=== PATIENT | male | born 1965 | race Caucasian/White ===

== ENCOUNTER 2021-10-27 03:18 | Inpatient (IN) | payer MEDICARE, MEDICAID, SELFPAY ==
[2021-10-27] VITALS (9 sets, daily range): BP systolic 117–172; BP diastolic 63–97; PULSE 93–113; RESP 12–20; TEMP 36.2–37; O2SAT 94–100; BMI 35.9
--- NOTE | ~2021-10-27 | XR_ITS ---
EXAMINATION: XR BILATERAL HANDS: 3 VIEWS EACH XR RIGHT FOREARM: 2 VIEWS CLINICAL INFORMATION: Pain COMPARISON: 06/26/2020 XR/XR hand RT min 3V FINDINGS/IMPRESSION: Right hand: No acute fracture or dislocation. Status post resection of the fifth ray at the level of the proximal fifth metacarpal metaphysis. Moderate marginal osteophytes and subchondral sclerosis and joint space narrowing of the first CMC joint. Small marginal osteophytes throughout the metacarpophalangeal joints and interphalangeal joints. Mild degenerative changes of the radiocarpal joint. Left hand: No acute fracture or dislocation. Moderate degenerative changes of the first CMC joint and triscaphe the joints. Small marginal osteophytes throughout the metacarpophalangeal joints and interphalangeal joints. Soft tissues unremarkable. Right forearm: Radius and ulna are intact. Soft tissues unremarkable.
--- NOTE | ~2021-10-27 | XR_ITS ---
EXAMINATION: XR BILATERAL HANDS: 3 VIEWS EACH XR RIGHT FOREARM: 2 VIEWS CLINICAL INFORMATION: Pain COMPARISON: 06/26/2020 XR/XR hand LT min 3V FINDINGS/IMPRESSION: Right hand: No acute fracture or dislocation. Status post resection of the fifth ray at the level of the proximal fifth metacarpal metaphysis. Moderate marginal osteophytes and subchondral sclerosis and joint space narrowing of the first CMC joint. Small marginal osteophytes throughout the metacarpophalangeal joints and interphalangeal joints. Mild degenerative changes of the radiocarpal joint. Left hand: No acute fracture or dislocation. Moderate degenerative changes of the first CMC joint and triscaphe the joints. Small marginal osteophytes throughout the metacarpophalangeal joints and interphalangeal joints. Soft tissues unremarkable. Right forearm: Radius and ulna are intact. Soft tissues unremarkable.
--- NOTE | ~2021-10-27 | XR_ITS ---
EXAMINATION: XR CHEST CLINICAL INFORMATION: Covid COMPARISON: 08/09/2019 TECHNIQUE: Frontal view of the chest was obtained. FINDINGS: No significant abnormality is noted involving the heart, lungs, mediastinum or bony thorax. Again seen is evidence of right rotator cuff surgery. XR/XR chest 1V IMPRESSION: No acute intrathoracic disease. No evidence of Covid pneumonia.
--- NOTE | ~2021-10-27 | XR_ITS ---
EXAMINATION: XR BILATERAL HANDS: 3 VIEWS EACH XR RIGHT FOREARM: 2 VIEWS CLINICAL INFORMATION: Pain COMPARISON: 06/26/2020 XR/XR forearm RT 2V FINDINGS/IMPRESSION: Right hand: No acute fracture or dislocation. Status post resection of the fifth ray at the level of the proximal fifth metacarpal metaphysis. Moderate marginal osteophytes and subchondral sclerosis and joint space narrowing of the first CMC joint. Small marginal osteophytes throughout the metacarpophalangeal joints and interphalangeal joints. Mild degenerative changes of the radiocarpal joint. Left hand: No acute fracture or dislocation. Moderate degenerative changes of the first CMC joint and triscaphe the joints. Small marginal osteophytes throughout the metacarpophalangeal joints and interphalangeal joints. Soft tissues unremarkable. Right forearm: Radius and ulna are intact. Soft tissues unremarkable.
--- NOTE | 2021-10-27 04:57 | ED.OVERDOSE ---
HPI - Overdose General Chief Complaint: Overdose Stated Complaint: crisis/restrained Time Seen by Provider: 10/27/21 04:57 Source: patient and family () Mode of arrival: EMS History of Present Illness HPI Narrative: This is a 56-year-old male with longstanding history of alcohol dependence, depression, hypertension who presents via EMS after called 911 for patient picking up 90s and stating that he wanted to kill himself. Patient states that he has taken 3-4 times the amount of his prescribed medications and reports 10-12 beers and repeatedly states he has ?done something very bad? and that he intentionally overdosed because he is ?fed up with life?. As per EMS patient was tased by the police department. Collateral information provided by the describes that she and her have been ongoing conflict which has escalated since she became COVID positive, and has been ill so that everyone is ?cooped up?. She states that they were arguing earlier in the day and he was saying that ?he went to take his life? and then left the house. She states that he had been drinking all day and says that he went to a local bar and came home. She says that she avoid staying anything and that he went to bed went to sleep. She then describes waking up and finding him sitting at the kitchen with his pill bottle surrounding him in a pt of whiskey. She then states that he endorsed wanting to harm himself stood up and grabbed night and she ran out of the house. She does note that he punched some windows in states that there were pills and glass everywhere. Related Data Home Medications Medication Instructions Recorded Confirmed amlodipine 5 mg tablet 1 tab PO DAILY 10/27/21 10/27/21 atorvastatin 40 mg tablet 1 tab PO DAILY 10/27/21 10/27/21 gabapentin 300 mg capsule 1 cap PO TID 10/27/21 10/27/21 metoprolol succinate 25 mg 1 tab PO DAILY 10/27/21 10/27/21 tablet,extended release 24 hr sitagliptin 100 mg tablet (Januvia) 1 tab PO DAILY 10/27/21 10/27/21 Allergies Allergy/AdvReac Type Severity Reaction Status Date / Time No Known Allergies Allergy Unverified 07/05/20 14:44 [No Known Allergies*] Review of Systems Review of Systems: Pertinent positives and negatives as stated in HPI 10 point review of systems is otherwise negative. [facility] Past Medical History Source: nursing notes reviewed Medical History Asthma Back pain Diabetes Social History Social History Alcohol intake: current Alcohol type: beer Patient Tobacco Use Status: Tobacco use Unknown Use of substances other than those prescribed or required for medical reasons: Unknown Advance Directives: No Advance Directives Information Provided: No Physical Exam Vital Signs: Vital Signs: Last Vital Signs Temp 98.3 F 10/27/21 05:04 Pulse 105 H 10/27/21 06:00 Resp 12 10/27/21 06:00 BP 118/73 10/27/21 06:00 Pulse Ox 96 10/27/21 06:00 BMI result Body Mass Index 35.9 VITAL SIGNS: Reviewed. GENERAL: Well developed, well nourished, in no acute distress. HEAD: Normocephalic/atraumatic EYES: PERRLA, EOMI EARS: Ext canals without abnormality NOSE: Nares patent bilateral OROPHARYNX: no oral lesions noted, posterior pharynx clear NECK: Supple, no adenopathy LUNGS: Normal breath sounds. No adventitious sounds or accessory muscle use. SpO2<> CARDIOVASCULAR: Regular rate and rhythm without noted murmurs ABDOMEN: Obese, Soft, non-tender, non-distended with bowel sounds. MUSCULOSKELETAL: No tenderness, deformities, or effusions noted on gross inspection. EXTREMITIES: No cyanosis, clubbing or edema; bilateral upper extremities significant for superficial lacerations from elbow to wrist and noted small lacerations over MCPs of both hands, sensations intact pulses are palpable and capillary refills less than 3 seconds. SKIN: Inspection of the skin reveals no rashes NEUROLOGIC: Alert and oriented x 4. Course Course Course Narrative: 56-year-old male with history and clinical presentation consistent with suicide attempt/suicidal ideation/intentional overdose with multiple medications that despite extensive conversation with the , patient, and review of pharmacy records unable to ascertain exact number of pills and did note that there were pills scattered across the floor. As per patient also significant for alcohol withdrawals. Poison control was contacted and recommends: Blood sugar, q.1 hour for 8 hours EKGs hourly (eval for bradycardia, widening QRS, heart blocks) Repeat lactic acid, CMP at 0900 Should be admitted to cardiac/ICU monitor bed Signed out to Dr Dunbar. MDM - Overdose Lab Data Result diagrams: 10/27/21 05:28 10/27/21 05:28 Labs: Lab Results 10/27/21 10/27/21 10/27/21 Range/Units 03:34 05:28 05:28 WBC 4.7 L (4.8-10.8) X10*3/uL RBC 4.78 (4.60-5.80) X10*6/uL Hgb 16.1 (14.0-18.0) g/dl Hct 44.7 (42.0-52.0) % MCV 93.5 (80.0-98.0) fL MCH 33.7 H (27.0-33.0) pg MCHC 36.0 (31.0-36.0) g/dl RDW 12.7 (11.0-16.0) % Plt Count 178 (160-400) X10*3/uL MPV 10.0 (9.4-12.4) fL Immature Gran % (Auto) 0.4 (0.0-0.4) % Neut % (Auto) 49.2 (45-73) % Lymph % (Auto) 38.7 (20-40) % [place] % (Auto) 10.9 (2-11) % Eos % (Auto) 0.4 (0-4) % Baso % (Auto) 0.4 (0-2) % Lymph # (Auto) 1.8 (1.2-4.9) X10*3/uL [place] # (Auto) 0.5 (0.1-1.2) X10*3/uL Eos # (Auto) 0.0 (0.0-0.4) X10*3/uL Baso # (Auto) 0.0 (0.0-0.2) X10*3/uL Abs Immat Gran (auto) 0.02 (0.00-0.03) X10*3/uL Absolute Neuts (auto) 2.3 (2.0-8.3) x10*3/uL Absolute Nucleated RBC 0.000 (0.0-0.012) X10*3/uL Nucleated RBC % (auto) 0.0 (0.0-0.2) /100WBC PT 12.6 (9.9-13.0) SEC INR 1.1 (0.9-1.1) VBG pH (7.32-7.43) VBG pCO2 mmHg VBG pO2 mmHg VBG HCO3 (22-26) mmol/L VBG O2 Saturation % VBG Base Excess mmol/L Sodium (135-145) mmol/L Potassium (3.3-5.1) mmol/L Chloride (96-108) mmol/L Carbon Dioxide (22-29) mmol/L Anion Gap (12-20) BUN (9-16) mg/dL Creatinine (0.5-1.4) mg/dL Estim Creat Clear Calc Estimated GFR POC Glucose 246 H (60-115) mg/dL Random Glucose (60-115) mg/dL Lactic Acid (0.5-2.0) mmol/L Calcium (8.4-10.2) mg/dL Total Bilirubin (0.0-1.0) mg/dL AST (5-37) U/L ALT (0-40) U/L Alkaline Phosphatase (39-117) U/L Troponin I High Sens (<3.5-35.0) ng/L Total Protein (6.5-8.0) g/dL Albumin (3.5-5.0) g/dL Lipase (8-78) U/L Salicylates (15-30) mg/dL Acetaminophen (<30) mcg/mL Ethyl Alcohol mg/dL Acetone, Qual (Negative) COVID-19 ([facility]) (Negative) COVID-19 Clin Com 10/27/21 10/27/21 10/27/21 Range/Units 05:28 05:28 05:28 WBC (4.8-10.8) X10*3/uL RBC (4.60-5.80) X10*6/uL Hgb (14.0-18.0) g/dl Hct (42.0-52.0) % MCV (80.0-98.0) fL MCH (27.0-33.0) pg MCHC (31.0-36.0) g/dl RDW (11.0-16.0) % Plt Count (160-400) X10*3/uL MPV (9.4-12.4) fL Immature Gran % (Auto) (0.0-0.4) % Neut % (Auto) (45-73) % Lymph % (Auto) (20-40) % [place] % (Auto) (2-11) % Eos % (Auto) (0-4) % Baso % (Auto) (0-2) % Lymph # (Auto) (1.2-4.9) X10*3/uL [place] # (Auto) (0.1-1.2) X10*3/uL Eos # (Auto) (0.0-0.4) X10*3/uL Baso # (Auto) (0.0-0.2) X10*3/uL Abs Immat Gran (auto) (0.00-0.03) X10*3/uL Absolute Neuts (auto) (2.0-8.3) x10*3/uL Absolute Nucleated RBC (0.0-0.012) X10*3/uL Nucleated RBC % (auto) (0.0-0.2) /100WBC PT (9.9-13.0) SEC INR (0.9-1.1) VBG pH (7.32-7.43) VBG pCO2 mmHg VBG pO2 mmHg VBG HCO3 (22-26) mmol/L VBG O2 Saturation % VBG Base Excess mmol/L Sodium 142 (135-145) mmol/L Potassium 4.0 (3.3-5.1) mmol/L Chloride 107 (96-108) mmol/L Carbon Dioxide 18 L (22-29) mmol/L Anion Gap 21 H (12-20) BUN 6 L (9-16) mg/dL Creatinine 0.81 (0.5-1.4) mg/dL Estim Creat Clear Calc 126.9 Estimated GFR > 60 POC Glucose (60-115) mg/dL Random Glucose 168 H (60-115) mg/dL Lactic Acid (0.5-2.0) mmol/L Calcium 9.3 (8.4-10.2) mg/dL Total Bilirubin 0.4 (0.0-1.0) mg/dL AST 58 H (5-37) U/L ALT 108 H (0-40) U/L Alkaline Phosphatase 88 (39-117) U/L Troponin I High Sens 10.4 (<3.5-35.0) ng/L Total Protein 7.7 (6.5-8.0) g/dL Albumin 4.3 (3.5-5.0) g/dL Lipase 22 (8-78) U/L Salicylates < 5.0 L (15-30) mg/dL Acetaminophen < 1 (<30) mcg/mL Ethyl Alcohol mg/dL Acetone, Qual Negative (Negative) COVID-19 ([facility]) Positive A (Negative) COVID-19 Clin Com See Note 10/27/21 10/27/21 10/27/21 Range/Units 05:28 05:32 06:43 WBC (4.8-10.8) X10*3/uL RBC (4.60-5.80) X10*6/uL Hgb (14.0-18.0) g/dl Hct (42.0-52.0) % MCV (80.0-98.0) fL MCH (27.0-33.0) pg MCHC (31.0-36.0) g/dl RDW (11.0-16.0) % Plt Count (160-400) X10*3/uL MPV (9.4-12.4) fL Immature Gran % (Auto) (0.0-0.4) % Neut % (Auto) (45-73) % Lymph % (Auto) (20-40) % [place] % (Auto) (2-11) % Eos % (Auto) (0-4) % Baso % (Auto) (0-2) % Lymph # (Auto) (1.2-4.9) X10*3/uL [place] # (Auto) (0.1-1.2) X10*3/uL Eos # (Auto) (0.0-0.4) X10*3/uL Baso # (Auto) (0.0-0.2) X10*3/uL Abs Immat Gran (auto) (0.00-0.03) X10*3/uL Absolute Neuts (auto) (2.0-8.3) x10*3/uL Absolute Nucleated RBC (0.0-0.012) X10*3/uL Nucleated RBC % (auto) (0.0-0.2) /100WBC PT (9.9-13.0) SEC INR (0.9-1.1) VBG pH 7.39 (7.32-7.43) VBG pCO2 30 mmHg VBG pO2 128 mmHg VBG HCO3 18 L (22-26) mmol/L VBG O2 Saturation 98.0 % VBG Base Excess -4.5 mmol/L Sodium (135-145) mmol/L Potassium (3.3-5.1) mmol/L Chloride (96-108) mmol/L Carbon Dioxide (22-29) mmol/L Anion Gap (12-20) BUN (9-16) mg/dL Creatinine (0.5-1.4) mg/dL Estim Creat Clear Calc Estimated GFR POC Glucose (60-115) mg/dL Random Glucose (60-115) mg/dL Lactic Acid 8.3 H* (0.5-2.0) mmol/L Calcium (8.4-10.2) mg/dL Total Bilirubin (0.0-1.0) mg/dL AST (5-37) U/L ALT (0-40) U/L Alkaline Phosphatase (39-117) U/L Troponin I High Sens (<3.5-35.0) ng/L Total Protein (6.5-8.0) g/dL Albumin (3.5-5.0) g/dL Lipase (8-78) U/L Salicylates (15-30) mg/dL Acetaminophen (<30) mcg/mL Ethyl Alcohol 323 H* mg/dL Acetone, Qual (Negative) COVID-19 ([facility]) (Negative) COVID-19 Clin Com 10/27/21 Range/Units 07:40 WBC (4.8-10.8) X10*3/uL RBC (4.60-5.80) X10*6/uL Hgb (14.0-18.0) g/dl Hct (42.0-52.0) % MCV (80.0-98.0) fL MCH (27.0-33.0) pg MCHC (31.0-36.0) g/dl RDW (11.0-16.0) % Plt Count (160-400) X10*3/uL MPV (9.4-12.4) fL Immature Gran % (Auto) (0.0-0.4) % Neut % (Auto) (45-73) % Lymph % (Auto) (20-40) % [place] % (Auto) (2-11) % Eos % (Auto) (0-4) % Baso % (Auto) (0-2) % Lymph # (Auto) (1.2-4.9) X10*3/uL [place] # (Auto) (0.1-1.2) X10*3/uL Eos # (Auto) (0.0-0.4) X10*3/uL Baso # (Auto) (0.0-0.2) X10*3/uL Abs Immat Gran (auto) (0.00-0.03) X10*3/uL Absolute Neuts (auto) (2.0-8.3) x10*3/uL Absolute Nucleated RBC (0.0-0.012) X10*3/uL Nucleated RBC % (auto) (0.0-0.2) /100WBC PT (9.9-13.0) SEC INR (0.9-1.1) VBG pH (7.32-7.43) VBG pCO2 mmHg VBG pO2 mmHg VBG HCO3 (22-26) mmol/L VBG O2 Saturation % VBG Base Excess mmol/L Sodium (135-145) mmol/L Potassium (3.3-5.1) mmol/L Chloride (96-108) mmol/L Carbon Dioxide (22-29) mmol/L Anion Gap (12-20) BUN (9-16) mg/dL Creatinine (0.5-1.4) mg/dL Estim Creat Clear Calc Estimated GFR POC Glucose 159 H (60-115) mg/dL Random Glucose (60-115) mg/dL Lactic Acid (0.5-2.0) mmol/L Calcium (8.4-10.2) mg/dL Total Bilirubin (0.0-1.0) mg/dL AST (5-37) U/L ALT (0-40) U/L Alkaline Phosphatase (39-117) U/L Troponin I High Sens (<3.5-35.0) ng/L Total Protein (6.5-8.0) g/dL Albumin (3.5-5.0) g/dL Lipase (8-78) U/L Salicylates (15-30) mg/dL Acetaminophen (<30) mcg/mL Ethyl Alcohol mg/dL Acetone, Qual (Negative) COVID-19 ([facility]) (Negative) COVID-19 Clin Com ECG Data Attestation: I personally reviewed and interpreted this ECG as follows: Prior ECG tracings: not available for review Interpretation: Normal sinus rhythm, HR-98, no STEMI, MO/QRS/QTC are within normal limits. Discharge Plan Discharge Clinical Impression: Suicide attempt by multiple drug overdose, Alcoholic intoxication, Alcohol dependence, Depression Patient Disposition: Still a Patient Prescriptions: No Action atorvastatin 40 mg tablet 1 tab PO DAILY RF: 0 amlodipine 5 mg tablet 1 tab PO DAILY RF: 0 gabapentin 300 mg capsule 1 cap PO TID RF: 0 metoprolol succinate 25 mg tablet extended release 24 hr 1 tab PO DAILY RF: 0 Januvia 100 mg tablet 1 tab PO DAILY RF: 0
--- NOTE | 2021-10-27 04:58 | ECG_ITS ---
Test Reason : covid/ tazed/chest pain Blood Pressure : / mmHG Vent. Rate : 102 BPM Atrial Rate : 102 BPM P-R Int : 166 ms QRS Dur : 082 ms QT Int : 336 ms P-R-T Axes : 037 -07 050 degrees QTc Int : 437 ms Artifact in tracing Sinus tachycardia Otherwise normal ECG When compared with ECG of 10-AUG-2019 07:21, Vent. rate has increased BY 37 BPM Referred By: Jennifer Alegria Electronically Signed By:LISA FERNANDEZ
[2021-10-27 05:11] LABS: Glucose, Whole Blood 246 mg/dL (60-115)
[2021-10-27 05:38] LABS: VBG Base Excess -4.5 mmol/L; VBG HCO3 18 mmol/L (22-26); VBG pCO2 30 mmHg; VBG pH 7.39 (7.32-7.43); VBG pO2 128 mmHg
[2021-10-27 05:39] LABS: MANUAL DIFF FLAG NO
[2021-10-27 05:40] LABS: Basophils Percent Auto 0.4 % (0-2); Eosinophils Percent Auto 0.4 % (0-4); Hematocrit 44.7 % (42.0-52.0); Hemoglobin 16.1 g/dl (14.0-18.0); Imm Gran Abs Auto 0.02 X10*3/uL (0.00-0.03); Imm Gran Pct Auto 0.4 % (0.0-0.4); Lymphocytes Absolute Auto 1.8 X10*3/uL (1.2-4.9); Lymphocytes Percent Auto 38.7 % (20-40); Mean Corpuscular Hemoglobin 33.7 pg (27.0-33.0); Mean Corpuscular Volume 93.5 fL (80.0-98.0); Monocytes Absolute Auto 0.5 X10*3/uL (0.1-1.2); Monocytes Percent Auto 10.9 % (2-11); Neutrophils Absolute Auto 2.3 x10*3/uL (2.0-8.3); Neutrophils Percent Auto 49.2 % (45-73); Platelet Count 178 X10*3/uL (160-400); Red Blood Count 4.78 X10*6/uL (4.60-5.80); Red Cell Distribution Width 12.7 % (11.0-16.0); White Blood Count 4.7 X10*3/uL (4.8-10.8)
[2021-10-27 05:45] LABS: INTERNATIONAL NORM RATIO 1.1 (0.9-1.1); Prothrombin Time 12.6 SEC (9.9-13.0)
[2021-10-27 05:47] LABS: COVID-19 Test Positive (Negative)
[2021-10-27 05:52] LABS: Ethanol 323 mg/dL
[2021-10-27 05:59] LABS: Alanine Aminotransferase 108 U/L (0-40); Albumin Level 4.3 g/dL (3.5-5.0); Alkaline Phosphatase 88 U/L (39-117); Anion Gap 21 (12-20); Aspartate Amino Transferase 58 U/L (5-37); Bilirubin Total 0.4 mg/dL (0.0-1.0); Blood Urea Nitrogen 6 mg/dL (9-16); Calcium 9.3 mg/dL (8.4-10.2); Carbon Dioxide 18 mmol/L (22-29); Chloride 107 mmol/L (96-108); Creatinine Clr Calc Pharmacy 126.9; Estimated Glomerular Filt Rate > 60; Glucose Random 168 mg/dL (60-115); Lipase 22 U/L (8-78); Salicylate < 5.0 mg/dL (15-30); Sodium 142 mmol/L (135-145); Total Protein 7.7 g/dL (6.5-8.0)
[2021-10-27 06:00] LABS: Troponin-I High Sensitivity 10.4 ng/L (<3.5-35.0)
[2021-10-27 06:02] LABS: Acetaminophen LAB < 1 mcg/mL (<30)
--- NOTE | 2021-10-27 06:31 | PC.NURSE ---
Poison control called due to patient intentional overdose of prescribed medication 3-4 times the amount per patient. Per poison control patient's vital signs to be monitored closely for next 6 hrs. Repeat comprehensive metabolic panel, lactic acid should be repeated at 0900. Serial EKG's q 2 hrs and hourly blood sugars x 8 hrs. Patient should also be admitted to cardiac bed or ICU bed for the next 8hours. Information passed along to MD and Charge nurse.
[2021-10-27 06:53] LABS: Venous Blood Gas Refer to POC result
[2021-10-27] MEDS: Diphth,Pertus(ACell),Tet Adult 0.5 ML SYRINGE IM (07:01)
[2021-10-27 07:10] LABS: Lactic Acid 8.3 mmol/L (0.5-2.0)
[2021-10-27] MEDS: 0.9 % Sodium Chloride 2,000 ML 999 ML IV (07:36)
[2021-10-27 07:44] LABS: Glucose, Whole Blood 159 mg/dL (60-115)
[2021-10-27 08:04] LABS: Acetone, serum QL Negative (Negative)
[2021-10-27 08:33] LABS: Glucose, Whole Blood 166 mg/dL (60-115)
[2021-10-27 08:45] LABS: Reflex Lactate? Lactic Acid Added
[2021-10-27 09:35] LABS: Alanine Aminotransferase 102 U/L (0-40); Alkaline Phosphatase 84 U/L (39-117); Anion Gap 22 (12-20); Aspartate Amino Transferase 53 U/L (5-37); Bilirubin Total 0.4 mg/dL (0.0-1.0); Blood Urea Nitrogen 6 mg/dL (9-16); Calcium 8.8 mg/dL (8.4-10.2); Carbon Dioxide 21 mmol/L (22-29); Chloride 106 mmol/L (96-108); Creatinine Clr Calc Pharmacy 112.9; Estimated Glomerular Filt Rate > 60; Glucose Random 227 mg/dL (60-115); Potassium 4.6 mmol/L (3.3-5.1); Sodium 144 mmol/L (135-145); Total Protein 7.2 g/dL (6.5-8.0)
[2021-10-27 09:36] LABS: ~Lactic Acid-LAB USE ONLY 7.8 mmol/L (0.5-2.0)
[2021-10-27 10:10] LABS: Glucose, Whole Blood 230 mg/dL (60-115)
--- NOTE | 2021-10-27 10:19 | ECG_ITS ---
Test Reason : chest pain, covid Blood Pressure : / mmHG Vent. Rate : 106 BPM Atrial Rate : 106 BPM P-R Int : 166 ms QRS Dur : 080 ms QT Int : 340 ms P-R-T Axes : 024 -08 047 degrees QTc Int : 451 ms Sinus tachycardia Otherwise normal ECG When compared with ECG of 27-OCT-2021 10:12, No significant change was found Referred By: Jamaal Dunbar Electronically Signed By:LISA FERNANDEZ
[2021-10-27 11:15] LABS: Glucose, Whole Blood 260 mg/dL (60-115)
[2021-10-27 11:22] LABS: Reflex Lactate? 2 Y
--- NOTE | 2021-10-27 12:00 | ECG_ITS ---
Test Reason : chest pain/covid Blood Pressure : / mmHG Vent. Rate : 122 BPM Atrial Rate : 122 BPM P-R Int : 164 ms QRS Dur : 080 ms QT Int : 310 ms P-R-T Axes : 047 -04 042 degrees QTc Int : 441 ms Sinus tachycardia with occasional Premature ventricular complexes Otherwise normal ECG When compared with ECG of 27-OCT-2021 11:03, Premature ventricular complexes are now Present Referred By: Jamaal Dunbar Electronically Signed By:LISA FERNANDEZ
[2021-10-27 12:43] LABS: Venous Blood Gas Refer to POC result
[2021-10-27 12:55] LABS: ~Lactic Acid-LAB USE ONLY 8.9 mmol/L (0.5-2.0)
[2021-10-27 12:56] LABS: Anion Gap 22 (12-20); Blood Urea Nitrogen 6 mg/dL (9-16); Calcium 8.8 mg/dL (8.4-10.2); Carbon Dioxide 18 mmol/L (22-29); Chloride 106 mmol/L (96-108); Creatinine Clr Calc Pharmacy 111.7; Estimated Glomerular Filt Rate > 60; Glucose Random 263 mg/dL (60-115); Potassium 4.6 mmol/L (3.3-5.1); Sodium 141 mmol/L (135-145)
--- NOTE | 2021-10-27 16:00 | ECG_ITS ---
Test Reason : repeat Blood Pressure : / mmHG Vent. Rate : 113 BPM Atrial Rate : 113 BPM P-R Int : 162 ms QRS Dur : 080 ms QT Int : 332 ms P-R-T Axes : 033 -09 023 degrees QTc Int : 455 ms Artifact in tracing Sinus tachycardia Otherwise normal ECG When compared with ECG of 27-OCT-2021 12:43, Premature ventricular complexes are no longer Present Referred By: Jamaal Dunbar Electronically Signed By:LISA FERNANDEZ
--- NOTE | 2021-10-27 16:14 | PC.NURSE ---
pt no longer in need of q4 hour ekg per md
[2021-10-27] MEDS: 0.9 % Sodium Chloride 1,000 ML 999 ML IV ×2 (16:35)
[2021-10-27] MEDS: Insulin Lispro 100 UNIT/ML 3 ML VIAL 6 UNIT SUBCUT (16:36)
[2021-10-27 18:05] LABS: ABG Refer to POC result
[2021-10-27 18:06] LABS: ABG Base Excess -7.4 mmol/L; ABG HCO3 16 mmol/L (22-26); ABG pCO2 26 mmHg (32-45); ABG pCO2 TC 26 mmHg (32-45); ABG pH 7.38 (7.35-7.45); ABG pH TC 7.38 (7.35-7.45); ABG pO2 92 mmHg (83-108); ABG pO2 TC 90 (83-108)
[2021-10-27 18:20] LABS: Glucose, Whole Blood 225 mg/dL (60-115)
[2021-10-27 18:20] LABS: Glucose, Whole Blood 187 mg/dL (60-115)
[2021-10-27 18:22] LABS: Osmolality, Serum 382 mosm/kg (281-305)
[2021-10-27 19:23] LABS: Glucose, Whole Blood 234 mg/dL (60-115)
--- NOTE | 2021-10-27 20:00 | ECG_ITS ---
Test Reason : chest pain Blood Pressure : / mmHG Vent. Rate : 121 BPM Atrial Rate : 121 BPM P-R Int : 164 ms QRS Dur : 074 ms QT Int : 322 ms P-R-T Axes : 044 -11 023 degrees QTc Int : 457 ms Sinus tachycardia Likely normal EKG When compared with ECG of 27-OCT-2021 07:18, No significant changes seen Referred By: Jamaal Dunbar Electronically Signed By:LISA FERNANDEZ
--- NOTE | 2021-10-27 20:08 | MHC.CARE ---
Please refer Pt to CARE Team for assessment when medically stable.
[2021-10-27 21:22] LABS: Lactic Acid 6.6 mmol/L (0.5-2.0)
--- NOTE | 2021-10-27 21:30 | PHA.MEDREC ---
Pharmacy Consult ? Medication Reconciliation Pharmacy has completed the medication reconciliation. Patient is unable to go over medications with me. Med rec done using pharmacy and family member. Most bottles had pills in them, including metformin which indicates nonadherence. Thanks Goyo
[2021-10-27 21:33] LABS: D Dimer High Sensitivity < 150 NG/ML
[2021-10-27] MEDS: Acetaminophen 325 MG TABLET 650 MG PO (22:04)
[2021-10-27] MEDS: Sodium Bicarbonate 8.4% 150 MEQ in Dextrose 5 % 850 ML IV (22:04)
[2021-10-27] MEDS: PHENobarbitaL sodium 130 MG/ML VIAL 292.5 MG IM (22:05)
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
[2021-10-27 22:14] LABS: Anion Gap 18 (12-20); Blood Urea Nitrogen 7 mg/dL (9-16); Calcium 8.5 mg/dL (8.4-10.2); Carbon Dioxide 21 mmol/L (22-29); Chloride 103 mmol/L (96-108); Creatinine Clr Calc Pharmacy 123.8; Estimated Glomerular Filt Rate > 60; Glucose Random 223 mg/dL (60-115); Potassium 4.6 mmol/L (3.3-5.1); Sodium 137 mmol/L (135-145)
[2021-10-27 22:49] LABS: Osmolality, Serum 293 mosm/kg (281-305)
[2021-10-27 22:52] LABS: Reflex Lactate? Lactic Acid Added
[2021-10-27] MEDS: Thiamine HCL 200 MG in 0.9 % Sodium Chloride 100 ML 204 MG IV (23:30)
[2021-10-27 23:49] LABS: ~Lactic Acid-LAB USE ONLY 4.1 mmol/L (0.5-2.0)
[2021-10-28 00:46] VITALS: BP 136/71; PULSE 94; RESP 16; TEMP 37; O2SAT 96
[2021-10-28] MEDS: PHENobarbitaL sodium 130 MG/ML VIAL 221 MG IM ×2 (01:08→04:09)
[2021-10-28 01:31] LABS: Reflex Lactate? 2 Y
[2021-10-28 02:33] LABS: ~Lactic Acid-LAB USE ONLY 2.9 mmol/L (0.5-2.0)
[2021-10-28 04:07] VITALS: BP 143/80; PULSE 84; RESP 18; O2SAT 96
--- NOTE | 2021-10-28 04:16 | PC.NURSE ---
this RN spoke to Mary at Poison Control. per Poison Control, pt to have lactic redraw this morning in order to be medically cleared. Hospitalist notified
[2021-10-28 07:34] LABS: MANUAL DIFF FLAG NO
[2021-10-28 07:46] LABS: Basophils Percent Auto 0.2 % (0-2); Hemoglobin 14.1 g/dl (14.0-18.0); Imm Gran Abs Auto 0.01 X10*3/uL (0.00-0.03); Imm Gran Pct Auto 0.2 % (0.0-0.4); Lymphocytes Absolute Auto 2.3 X10*3/uL (1.2-4.9); Lymphocytes Percent Auto 50.1 % (20-40); Mean Corpuscular HGB Conc 35.3 g/dl (31.0-36.0); Mean Corpuscular Hemoglobin 32.9 pg (27.0-33.0); Mean Corpuscular Volume 93.5 fL (80.0-98.0); Monocytes Absolute Auto 0.4 X10*3/uL (0.1-1.2); Monocytes Percent Auto 8.8 % (2-11); Neutrophils Absolute Auto 1.9 x10*3/uL (2.0-8.3); Neutrophils Percent Auto 40.7 % (45-73); Platelet Count 143 X10*3/uL (160-400); Red Blood Count 4.28 X10*6/uL (4.60-5.80); Red Cell Distribution Width 12.6 % (11.0-16.0); White Blood Count 4.7 X10*3/uL (4.8-10.8)
[2021-10-28 07:50] LABS: Anion Gap 11 (12-20); Blood Urea Nitrogen 5 mg/dL (9-16); Calcium 8.6 mg/dL (8.4-10.2); Carbon Dioxide 30 mmol/L (22-29); Chloride 99 mmol/L (96-108); Estimated Glomerular Filt Rate > 60; Glucose Random 205 mg/dL (60-115); Potassium 3.7 mmol/L (3.3-5.1); Sodium 136 mmol/L (135-145)
[2021-10-28 08:14] LABS: HBc Num1 0.09 S/CO (0.00-0.79); HBsAGNum1 0.19 S/CO (0.00-0.99); Hepatitis B Core Antibody Nonreactive (Nonreactive); Hepatitis B Surface Antigen Negative (Negative); ~HepC Num1 0.13 S/CO (0.00-0.79); ~Hepatitis C Antibody Nonreactive (Nonreactive)
[2021-10-28 08:21] LABS: ~Hepatitis B Surface Antibody NONREACTIVE (Nonreactive)
[2021-10-28 08:25] LABS: Cancel Lactic Acid Canceled
[2021-10-28 08:55] LABS: Glucose, Whole Blood 245 mg/dL (60-115)
[2021-10-28] MEDS: Insulin Lispro 100 UNIT/ML 3 ML VIAL SUBCUT ×4 (09:03→20:32)
[2021-10-28] MEDS: PHENobarbitaL 15 MG TABLET 45 MG PO ×2 (09:05→20:32)
[2021-10-28] MEDS: 0.9 % Sodium Chloride Flush 3 ML SYRINGE IVFLUSH ×3 (09:32→20:32)
--- NOTE | 2021-10-28 10:28 | PM.CNNEP ---
History of Present Illness Reason for Consult Consult date: 10/28/21 Chief Complaint Chief complaint: ETOH withdrawal History of Present Illness Narrative: 56-year-old male with a history of hypertension, hyperlipidemia, diabetes, alcohol abuse, anxiety, depression presented to the hospital with a chief complaint of intentional overdose of metoprolol, metformin, naproxen in an attempt to kill himself. Patient reported that his feeling depressed and wanted to kill himself; hence taken handful of metformin, naproxen, metoprolol. Mentions he drinks alcohol on a daily basis. Review of Systems Review of Systems Pertinent positives and negatives as stated in HPI 10 point review of systems is otherwise negative. [facility] Past Medical History Medical History Asthma Back pain Diabetes Family History Pertinent family history: Reviewed Social History Social History Household Members: Spouse Housing: House Alcohol intake: current Alcohol type: beer Patient Tobacco Use Status: Never used Tobacco Substance Use Type: Marijuana service: No Meds Allergies Allergy/AdvReac Type Severity Reaction Status Date / Time No Known Allergies Allergy Unverified 07/05/20 14:44 [No Known Allergies*] Active Medications: Current Medications Dextrose (Dextrose 50 % 25 Gm/50 Ml Vial) 25 gm IVPUSH Q15M PRN; Protocol PRN Reason: per Hypoglycemia Standing Ord. Glucose (Glucose Gel 15 Gm Gel..Gram.) 15 gm PO Q15M PRN; Protocol PRN Reason: per Hypoglycemia Standing Ord. Insulin Human Lispro (Insulin Lispro 100 Unit/Ml 3 Ml Vial) 0 unit SUBCUT QIDACHS [facility]; Protocol Last Admin: 10/28/21 09:03 Dose: 4 unit Documented by: Medication (No Benzodiazepines) 1 each MISCELLANE DAILY [facility] Melatonin (Melatonin 3 Mg Tablet) 6 mg PO BEDTIME PRN PRN Reason: Insomnia Phenobarbital (Phenobarbital 15 Mg Tablet) 45 mg PO BID [facility]; Protocol Stop: 10/29/21 21:01 Last Admin: 10/28/21 09:05 Dose: 45 mg Documented by: Phenobarbital (Phenobarbital 30 Mg Tablet) 30 mg PO BID [facility]; Protocol Stop: 10/31/21 21:01 Phenobarbital (Phenobarbital 30 Mg Tablet) 30 mg PO DAILY [facility]; Protocol Stop: 11/02/21 09:01 Senna (Sennosides 8.6 Mg Tablet) 17.2 mg PO BEDTIME PRN PRN Reason: Constipation Sodium Chloride (0.9 % Sodium Chloride Flush 3 Ml Syringe) 3 ml IVFLUSH QSHIFT [facility] Last Admin: 10/28/21 09:32 Dose: 3 ml Documented by: Home Medications Medication Instructions Recorded Confirmed Last Taken Type amlodipine 5 mg tablet 1 tab PO DAILY 10/27/21 10/27/21 Unknown History atorvastatin 40 mg tablet 1 tab PO DAILY 10/27/21 10/27/21 Unknown History gabapentin 300 mg capsule 1 cap PO TID 10/27/21 10/27/21 Unknown History metformin 1,000 mg tablet 1 tab PO BID 10/27/21 10/27/21 Unknown History metoprolol succinate 25 mg 1 tab PO DAILY 10/27/21 10/27/21 Unknown History tablet,extended release 24 hr sitagliptin 100 mg tablet (Januvia) 1 tab PO DAILY 10/27/21 10/27/21 Unknown History Physical Exam Vital Signs: Last Vital Signs Temp 98.6 F 10/28/21 00:46 Pulse 84 10/28/21 04:07 Resp 18 10/28/21 04:07 BP 143/80 H 10/28/21 04:07 Pulse Ox 96 10/28/21 04:07 BMI result Body Mass Index 35.9 Results Lab Results Result Diagrams: 10/31/21 06:17 10/31/21 06:17 Lab results: Chemistry 10/27/21 10/27/21 10/27/21 05:28 09:04 12:35 Sodium 142 144 141 Potassium 4.0 4.6 4.6 Carbon Dioxide 18 L 21 L 18 L BUN 6 L 6 L 6 L Creatinine 0.81 0.91 0.92 Calcium 9.3 8.8 8.8 10/27/21 10/28/21 21:45 07:23 Sodium 137 136 Potassium 4.6 3.7 Carbon Dioxide 21 L 30 H BUN 7 L 5 L Creatinine 0.83 0.75 Calcium 8.5 8.6 Hematology 10/27/21 10/28/21 05:28 07:23 WBC 4.7 L 4.7 L Hgb 16.1 14.1 Plt Count 178 143 L Assessment and Plan (1) Suicide attempt by multiple drug overdose: Status: Acute (2) Alcoholic intoxication: Status: Acute (3) Lactic acid acidosis: Status: Acute 56-year-old male with a past medical history of hypertension, hyperlipidemia, diabetes, alcohol abuse, anxiety, depression presented to the hospital with a chief complaint of intentional overdose of metoprolol, metformin, naproxen in an attempt to kill himself. Admitted to the hospital for following conditions Drug overdose: Patient overdosed on metformin, naproxen, Lopressor. Doses unknown. Noted to have severe lactic acidosis; normal renal function; pH 7.38. QRS 80. QTC 435. Creatinine 0.9. Serum bicarb 18. Will continue to monitor. COVID positive: Patient's chest x-ray showed no acute findings. Saturating well on room air. Supportive care. Renal function is stable thus far Non oliguric Mo indication for dialysis Keep I>O Follow renal panel and electrolytes Procedures Date of Service Date of Service: 10/28/21
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
[2021-10-28 13:57] LABS: Glucose, Whole Blood 257 mg/dL (60-115)
[2021-10-28 14:05] VITALS: BP 138/76; PULSE 87; RESP 18; TEMP 37; O2SAT 94
--- NOTE | 2021-10-28 14:05 | PC.NURSE ---
pt sleeping, wakes to verbal stimulus, size cutter nsr 80s, vss, sitter at bedside, will continue to monitor.
--- NOTE | 2021-10-28 14:16 | MHC.CM.PN ---
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
--- NOTE | 2021-10-28 17:01 | P.CNPS_ITS ---
History of Present Illness Date of Service: 10/28/2021 Chief Complaint: ETOH withdrawal Reason for Consult: Disposition, medication Requesting physician: Rishabh Olivia Sources of Information: patient interviewed, chart reviewed and crisis/core team assessment reviewed HPI Narrative: Gonzales is a 56 y.o. Male who carries a dx of alcohol use disorder and MDD, recurrent episode. He presented to [facility] on 10/27/2021 s/p intentional overdose of metoprolol, metformin, and naproxen in an attempt to kill himself. He has self induced superficial lacerations on bilateral forearms. He has a past medical history of hypertension, hyperlipidemia, and diabetes. Pt?s BAL was 323 on 10/27/2021, has been drinking daily. Pt found to be COVID positive, no hypoxia, tolerating room air, chest Xray showed no acute findings.? Psych consult placed for medications, disposition. I evaluated the pt this evening and upon inquiry he reports he superficially harmed himself because ?the police were pissing me off, I didnt want them to come in the house? and that ?they are not life threatening cuts.? The police arrived after called due to pt overdosing on his medications after a verbal argument between them. Per pt, ?I drank a little heavy.? Says he and his were arguing, he then left the house for a couple hours and had ?a few drinks? at the bar, came back home and went to bed, but says he got up and the argument started over again and that?s when he overdosed. Says he drank ?a lot of beer? and a half bottle of bourbon. Pt identifies precipitating factors as not getting along with his son right now, has had multiple recent losses, chronic pain issues, and arguing with his . Says he felt it would be ?better off if I go.? Denies hx of self harm or suicide attempts, felt his overdose was impulsive. Has had recent passive SI thoughts that it ?would be easier if i leave.? Says his PCP stopped prescribing opioid medication for his chronic pain and recommended medical cannabis but pt doesnt like cannabis and instead self medicates with alcohol. He did stop drinking for 2 mo but says 3 weeks ago he started it up again. He takes gabapentin is for pain, but ?it doesnt do much.? Pt says he has ?always? liked beer and he is pre- contemplative that his daily drinking is an issue. Says he uses alcohol to alleviate sx of chronic pain and insomnia, ?it puts me to sleep.? However pt does admit, ?everything goes back to alcohol.? Pt says he has been struggling with depression since his father . Sx include poor sleep at night, daytime sleeping, feelings of shame and guilt, low self esteem, withdrawal bx, and crying episodes. Says his will tell him ?all you do is sleep? and she doesnt want their son to see that. He does not leave the house much, driving is difficult due to back issues. Reports his self care is good, attends to ADLs. He denies issues with anxiety or agitation, ?I?m mostly laid back? and ?I let things go.? No hx of manic or hypomanic episodes endorsed. Supports include his brother and mom. Pt has been on venlafaxine since 10/2020 by PCP, has noticed a difference and says he is more irritable when he is non- adherent.? Current psych med regimen: Venlafaxine 225 mg daily (prescribed by PCP).? Past Psychiatric History: -No past psych treatment. Denies past hx of suicide attempts or self injurious behavior. Medical Evaluation Reviewed: Yes [facility] Medical History Asthma Back pain Diabetes Narrative: -Pt reports chronic back pain due to work related injury in 2014, had triple spinal fusion. Has an amputated R dylan from another work related injury.? Family History: -Denies Social History: -Pt lives with his and adolescent son. works for [employer] and [employer] -Pt is currently unemployed, on disability due to work related injury in 2014. 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 Substance History: -ETOH: daily use Trauma History: -Pt lost his son at age 33 a year and half ago due to drug overdose. Had a close friend 08/2022 from [place]. In 2019, pt?s father from cancer. Pt had another close friend in 2020 from liver disease. Diagnostics Vital Signs (24Hr): Vital Signs - 24 hr 10/27/21 17:57 10/27/21 20:49 10/27/21 22:29 Temperature Pulse Rate 100 111 H 98 Respiratory Rate 18 16 18 Blood Pressure 123/63 132/69 125/69 Pulse Oximetry 96 98 98 10/28/21 00:46 10/28/21 04:07 10/28/21 14:05 Temperature 98.6 F 98.6 F Pulse Rate 94 84 87 Respiratory Rate 16 18 18 Blood Pressure 136/71 143/80 H 138/76 Pulse Oximetry 96 96 94 BMI result Body Mass Index 35.9 Labs Results: 10/28/21 07:23 10/28/21 07:23 Labs: Laboratory Results - last 48 hr 10/27/21 10/27/21 10/27/21 03:34 05:28 05:28 WBC 4.7 L RBC 4.78 Hgb 16.1 Hct 44.7 MCV 93.5 MCH 33.7 H MCHC 36.0 RDW 12.7 Plt Count 178 MPV 10.0 Immature Gran % (Auto) 0.4 Neut % (Auto) 49.2 Lymph % (Auto) 38.7 Nobles % (Auto) 10.9 Eos % (Auto) 0.4 Baso % (Auto) 0.4 Lymph # (Auto) 1.8 Nobles # (Auto) 0.5 Eos # (Auto) 0.0 Baso # (Auto) 0.0 Abs Immat Gran (auto) 0.02 Absolute Neuts (auto) 2.3 Absolute Nucleated RBC 0.000 Nucleated RBC % (auto) 0.0 PT 12.6 INR 1.1 D-Dimer High Sensitivty O2 Saturation ABG pH at Pt Temp ABG pH (Temp Correct) ABG pCO2 at Pt Temp ABG pCO2 (Temp Corrct ABG pO2 at Pt Temp ABG pO2 (Temp Correct ABG HCO3 ABG Base Excess (Actual) VBG pH VBG pCO2 VBG pO2 VBG HCO3 VBG O2 Saturation VBG Base Excess Sodium Potassium Chloride Carbon Dioxide Anion Gap BUN Creatinine Estim Creat Clear Calc Estimated GFR POC Glucose 246 H Random Glucose Osmolality Lactic Acid Lactic Acid F/U @ 2Hr Lactic Acid F/U @ 4Hr Calcium Total Bilirubin AST ALT Alkaline Phosphatase Troponin I High Sens Total Protein Albumin Lipase Salicylates Acetaminophen Ethyl Alcohol Acetone, Qual COVID-19 ([facility]) COVID-19 Clin Com Hep Bs Antigen Hep Bs Antibody Hep B Core Total Ab Hepatitis C Ab (EIA) 10/27/21 10/27/21 10/27/21 05:28 05:28 05:28 WBC RBC Hgb Hct MCV MCH MCHC RDW Plt Count MPV Immature Gran % (Auto) Neut % (Auto) Lymph % (Auto) Nobles % (Auto) Eos % (Auto) Baso % (Auto) Lymph # (Auto) Nobles # (Auto) Eos # (Auto) Baso # (Auto) Abs Immat Gran (auto) Absolute Neuts (auto) Absolute Nucleated RBC Nucleated RBC % (auto) PT INR D-Dimer High Sensitivty O2 Saturation ABG pH at Pt Temp ABG pH (Temp Correct) ABG pCO2 at Pt Temp ABG pCO2 (Temp Corrct ABG pO2 at Pt Temp ABG pO2 (Temp Correct ABG HCO3 ABG Base Excess (Actual) VBG pH VBG pCO2 VBG pO2 VBG HCO3 VBG O2 Saturation VBG Base Excess Sodium 142 Potassium 4.0 Chloride 107 Carbon Dioxide 18 L Anion Gap 21 H BUN 6 L Creatinine 0.81 Estim Creat Clear Calc 126.9 Estimated GFR > 60 POC Glucose Random Glucose 168 H Osmolality Lactic Acid Lactic Acid F/U @ 2Hr Lactic Acid F/U @ 4Hr Calcium 9.3 Total Bilirubin 0.4 AST 58 H ALT 108 H Alkaline Phosphatase 88 Troponin I High Sens 10.4 Total Protein 7.7 Albumin 4.3 Lipase 22 Salicylates < 5.0 L Acetaminophen < 1 Ethyl Alcohol Acetone, Qual Negative COVID-19 ([facility]) Positive A COVID-19 Clin Com See Note Hep Bs Antigen Hep Bs Antibody Hep B Core Total Ab Hepatitis C Ab (EIA) 10/27/21 10/27/21 10/27/21 05:28 05:28 05:32 WBC RBC Hgb Hct MCV MCH MCHC RDW Plt Count MPV Immature Gran % (Auto) Neut % (Auto) Lymph % (Auto) Nobles % (Auto) Eos % (Auto) Baso % (Auto) Lymph # (Auto) Nobles # (Auto) Eos # (Auto) Baso # (Auto) Abs Immat Gran (auto) Absolute Neuts (auto) Absolute Nucleated RBC Nucleated RBC % (auto) PT INR D-Dimer High Sensitivty O2 Saturation ABG pH at Pt Temp ABG pH (Temp Correct) ABG pCO2 at Pt Temp ABG pCO2 (Temp Corrct ABG pO2 at Pt Temp ABG pO2 (Temp Correct ABG HCO3 ABG Base Excess (Actual) VBG pH 7.39 VBG pCO2 30 VBG pO2 128 VBG HCO3 18 L VBG O2 Saturation 98.0 VBG Base Excess -4.5 Sodium Potassium Chloride Carbon Dioxide Anion Gap BUN Creatinine Estim Creat Clear Calc Estimated GFR POC Glucose Random Glucose Osmolality 382 H Lactic Acid Lactic Acid F/U @ 2Hr Lactic Acid F/U @ 4Hr Calcium Total Bilirubin AST ALT Alkaline Phosphatase Troponin I High Sens Total Protein Albumin Lipase Salicylates Acetaminophen Ethyl Alcohol 323 H* Acetone, Qual COVID-19 ([facility]) COVID-19 Clin Com Hep Bs Antigen Hep Bs Antibody Hep B Core Total Ab Hepatitis C Ab (EIA) 10/27/21 10/27/21 10/27/21 06:43 07:40 08:27 WBC RBC Hgb Hct MCV MCH MCHC RDW Plt Count MPV Immature Gran % (Auto) Neut % (Auto) Lymph % (Auto) Nobles % (Auto) Eos % (Auto) Baso % (Auto) Lymph # (Auto) Nobles # (Auto) Eos # (Auto) Baso # (Auto) Abs Immat Gran (auto) Absolute Neuts (auto) Absolute Nucleated RBC Nucleated RBC % (auto) PT INR D-Dimer High Sensitivty O2 Saturation ABG pH at Pt Temp ABG pH (Temp Correct) ABG pCO2 at Pt Temp ABG pCO2 (Temp Corrct ABG pO2 at Pt Temp ABG pO2 (Temp Correct ABG HCO3 ABG Base Excess (Actual) VBG pH VBG pCO2 VBG pO2 VBG HCO3 VBG O2 Saturation VBG Base Excess Sodium Potassium Chloride Carbon Dioxide Anion Gap BUN Creatinine Estim Creat Clear Calc Estimated GFR POC Glucose 159 H 166 H Random Glucose Osmolality Lactic Acid 8.3 H* Lactic Acid F/U @ 2Hr Lactic Acid F/U @ 4Hr Calcium Total Bilirubin AST ALT Alkaline Phosphatase Troponin I High Sens Total Protein Albumin Lipase Salicylates Acetaminophen Ethyl Alcohol Acetone, Qual COVID-19 ([facility]) COVID-19 Clin Com Hep Bs Antigen Hep Bs Antibody Hep B Core Total Ab Hepatitis C Ab (EIA) 10/27/21 10/27/21 10/27/21 09:04 09:04 09:04 WBC RBC Hgb Hct MCV MCH MCHC RDW Plt Count MPV Immature Gran % (Auto) Neut % (Auto) Lymph % (Auto) Nobles % (Auto) Eos % (Auto) Baso % (Auto) Lymph # (Auto) Nobles # (Auto) Eos # (Auto) Baso # (Auto) Abs Immat Gran (auto) Absolute Neuts (auto) Absolute Nucleated RBC Nucleated RBC % (auto) PT INR D-Dimer High Sensitivty O2 Saturation ABG pH at Pt Temp ABG pH (Temp Correct) ABG pCO2 at Pt Temp ABG pCO2 (Temp Corrct ABG pO2 at Pt Temp ABG pO2 (Temp Correct ABG HCO3 ABG Base Excess (Actual) VBG pH VBG pCO2 VBG pO2 VBG HCO3 VBG O2 Saturation VBG Base Excess Sodium 144 Potassium 4.6 Chloride 106 Carbon Dioxide 21 L Anion Gap 22 H BUN 6 L Creatinine 0.91 Estim Creat Clear Calc 112.9 Estimated GFR > 60 POC Glucose Random Glucose 227 H D Osmolality Lactic Acid Cancelled Lactic Acid F/U @ 2Hr 7.8 H* Lactic Acid F/U @ 4Hr Calcium 8.8 Total Bilirubin 0.4 AST 53 H ALT 102 H Alkaline Phosphatase 84 Troponin I High Sens Total Protein 7.2 Albumin 4.0 Lipase Salicylates Acetaminophen Ethyl Alcohol Acetone, Qual COVID-19 ([facility]) COVID-19 Clin Com Hep Bs Antigen Hep Bs Antibody Hep B Core Total Ab Hepatitis C Ab (EIA) 10/27/21 10/27/21 10/27/21 10:05 11:02 12:35 WBC RBC Hgb Hct MCV MCH MCHC RDW Plt Count MPV Immature Gran % (Auto) Neut % (Auto) Lymph % (Auto) Nobles % (Auto) Eos % (Auto) Baso % (Auto) Lymph # (Auto) Nobles # (Auto) Eos # (Auto) Baso # (Auto) Abs Immat Gran (auto) Absolute Neuts (auto) Absolute Nucleated RBC Nucleated RBC % (auto) PT INR D-Dimer High Sensitivty O2 Saturation ABG pH at Pt Temp ABG pH (Temp Correct) ABG pCO2 at Pt Temp ABG pCO2 (Temp Corrct ABG pO2 at Pt Temp ABG pO2 (Temp Correct ABG HCO3 ABG Base Excess (Actual) VBG pH VBG pCO2 VBG pO2 VBG HCO3 VBG O2 Saturation VBG Base Excess Sodium Potassium Chloride Carbon Dioxide Anion Gap BUN Creatinine Estim Creat Clear Calc Estimated GFR POC Glucose 230 H 260 H Random Glucose Osmolality Lactic Acid Lactic Acid F/U @ 2Hr Lactic Acid F/U @ 4Hr 8.9 H* Calcium Total Bilirubin AST ALT Alkaline Phosphatase Troponin I High Sens Total Protein Albumin Lipase Salicylates Acetaminophen Ethyl Alcohol Acetone, Qual COVID-19 ([facility]) COVID-19 Clin Com Hep Bs Antigen Hep Bs Antibody Hep B Core Total Ab Hepatitis C Ab (EIA) 10/27/21 10/27/21 10/27/21 12:35 12:39 16:04 WBC RBC Hgb Hct MCV MCH MCHC RDW Plt Count MPV Immature Gran % (Auto) Neut % (Auto) Lymph % (Auto) Nobles % (Auto) Eos % (Auto) Baso % (Auto) Lymph # (Auto) Nobles # (Auto) Eos # (Auto) Baso # (Auto) Abs Immat Gran (auto) Absolute Neuts (auto) Absolute Nucleated RBC Nucleated RBC % (auto) PT INR D-Dimer High Sensitivty O2 Saturation ABG pH at Pt Temp ABG pH (Temp Correct) ABG pCO2 at Pt Temp ABG pCO2 (Temp Corrct ABG pO2 at Pt Temp ABG pO2 (Temp Correct ABG HCO3 ABG Base Excess (Actual) VBG pH VBG pCO2 VBG pO2 VBG HCO3 VBG O2 Saturation VBG Base Excess Sodium 141 Potassium 4.6 Chloride 106 Carbon Dioxide 18 L Anion Gap 22 H BUN 6 L Creatinine 0.92 Estim Creat Clear Calc 111.7 Estimated GFR > 60 POC Glucose 234 H 225 H Random Glucose 263 H Osmolality Lactic Acid Lactic Acid F/U @ 2Hr Lactic Acid F/U @ 4Hr Calcium 8.8 Total Bilirubin AST ALT Alkaline Phosphatase Troponin I High Sens Total Protein Albumin Lipase Salicylates Acetaminophen Ethyl Alcohol Acetone, Qual COVID-19 ([facility]) COVID-19 Clin Com Hep Bs Antigen Hep Bs Antibody Hep B Core Total Ab Hepatitis C Ab (EIA) 10/27/21 10/27/21 10/27/21 17:59 18:16 20:44 WBC RBC Hgb Hct MCV MCH MCHC RDW Plt Count MPV Immature Gran % (Auto) Neut % (Auto) Lymph % (Auto) Nobles % (Auto) Eos % (Auto) Baso % (Auto) Lymph # (Auto) Nobles # (Auto) Eos # (Auto) Baso # (Auto) Abs Immat Gran (auto) Absolute Neuts (auto) Absolute Nucleated RBC Nucleated RBC % (auto) PT INR D-Dimer High Sensitivty O2 Saturation 97.0 ABG pH at Pt Temp 7.38 ABG pH (Temp Correct) 7.38 ABG pCO2 at Pt Temp 26 L ABG pCO2 (Temp Corrct 26 L ABG pO2 at Pt Temp 92 ABG pO2 (Temp Correct 90 ABG HCO3 16 L ABG Base Excess (Actual) -7.4 VBG pH VBG pCO2 VBG pO2 VBG HCO3 VBG O2 Saturation VBG Base Excess Sodium Potassium Chloride Carbon Dioxide Anion Gap BUN Creatinine Estim Creat Clear Calc Estimated GFR POC Glucose 187 H Random Glucose Osmolality Lactic Acid 6.6 H* Lactic Acid F/U @ 2Hr Lactic Acid F/U @ 4Hr Calcium Total Bilirubin AST ALT Alkaline Phosphatase Troponin I High Sens Total Protein Albumin Lipase Salicylates Acetaminophen Ethyl Alcohol Acetone, Qual COVID-19 ([facility]) COVID-19 Clin Com Hep Bs Antigen Hep Bs Antibody Hep B Core Total Ab Hepatitis C Ab (EIA) 10/27/21 10/27/21 10/27/21 20:44 21:45 21:45 WBC RBC Hgb Hct MCV MCH MCHC RDW Plt Count MPV Immature Gran % (Auto) Neut % (Auto) Lymph % (Auto) Nobles % (Auto) Eos % (Auto) Baso % (Auto) Lymph # (Auto) Nobles # (Auto) Eos # (Auto) Baso # (Auto) Abs Immat Gran (auto) Absolute Neuts (auto) Absolute Nucleated RBC Nucleated RBC % (auto) PT INR D-Dimer High Sensitivty < 150 O2 Saturation ABG pH at Pt Temp ABG pH (Temp Correct) ABG pCO2 at Pt Temp ABG pCO2 (Temp Corrct ABG pO2 at Pt Temp ABG pO2 (Temp Correct ABG HCO3 ABG Base Excess (Actual) VBG pH VBG pCO2 VBG pO2 VBG HCO3 VBG O2 Saturation VBG Base Excess Sodium 137 Potassium 4.6 Chloride 103 Carbon Dioxide 21 L Anion Gap 18 BUN 7 L Creatinine 0.83 Estim Creat Clear Calc 123.8 Estimated GFR > 60 POC Glucose Random Glucose 223 H Osmolality 293 Lactic Acid Lactic Acid F/U @ 2Hr Lactic Acid F/U @ 4Hr Calcium 8.5 Total Bilirubin AST ALT Alkaline Phosphatase Troponin I High Sens Total Protein Albumin Lipase Salicylates Acetaminophen Ethyl Alcohol Acetone, Qual COVID-19 ([facility]) COVID-19 Clin Com Hep Bs Antigen Hep Bs Antibody Hep B Core Total Ab Hepatitis C Ab (EIA) 10/27/21 10/27/21 10/28/21 23:20 23:20 01:43 WBC RBC Hgb Hct MCV MCH MCHC RDW Plt Count MPV Immature Gran % (Auto) Neut % (Auto) Lymph % (Auto) Nobles % (Auto) Eos % (Auto) Baso % (Auto) Lymph # (Auto) Nobles # (Auto) Eos # (Auto) Baso # (Auto) Abs Immat Gran (auto) Absolute Neuts (auto) Absolute Nucleated RBC Nucleated RBC % (auto) PT INR D-Dimer High Sensitivty O2 Saturation ABG pH at Pt Temp ABG pH (Temp Correct) ABG pCO2 at Pt Temp ABG pCO2 (Temp Corrct ABG pO2 at Pt Temp ABG pO2 (Temp Correct ABG HCO3 ABG Base Excess (Actual) VBG pH VBG pCO2 VBG pO2 VBG HCO3 VBG O2 Saturation VBG Base Excess Sodium Potassium Chloride Carbon Dioxide Anion Gap BUN Creatinine Estim Creat Clear Calc Estimated GFR POC Glucose Random Glucose Osmolality Lactic Acid Lactic Acid F/U @ 2Hr 4.1 H* Lactic Acid F/U @ 4Hr 2.9 H* Calcium Total Bilirubin AST ALT Alkaline Phosphatase Troponin I High Sens Total Protein Albumin Lipase Salicylates Acetaminophen Ethyl Alcohol Acetone, Qual COVID-19 ([facility]) COVID-19 Clin Com Hep Bs Antigen Negative Hep Bs Antibody NONREACTIVE Hep B Core Total Ab Nonreactive Hepatitis C Ab (EIA) Nonreactive 10/28/21 10/28/21 10/28/21 07:23 07:23 07:23 WBC 4.7 L RBC 4.28 L Hgb 14.1 Hct 40.0 L MCV 93.5 MCH 32.9 MCHC 35.3 RDW 12.6 Plt Count 143 L MPV 10.0 Immature Gran % (Auto) 0.2 Neut % (Auto) 40.7 L Lymph % (Auto) 50.1 H Nobles % (Auto) 8.8 Eos % (Auto) 0.0 Baso % (Auto) 0.2 Lymph # (Auto) 2.3 Nobles # (Auto) 0.4 Eos # (Auto) 0.0 Baso # (Auto) 0.0 Abs Immat Gran (auto) 0.01 Absolute Neuts (auto) 1.9 L Absolute Nucleated RBC 0.000 Nucleated RBC % (auto) 0.0 PT INR D-Dimer High Sensitivty O2 Saturation ABG pH at Pt Temp ABG pH (Temp Correct) ABG pCO2 at Pt Temp ABG pCO2 (Temp Corrct ABG pO2 at Pt Temp ABG pO2 (Temp Correct ABG HCO3 ABG Base Excess (Actual) VBG pH VBG pCO2 VBG pO2 VBG HCO3 VBG O2 Saturation VBG Base Excess Sodium 136 Potassium 3.7 Chloride 99 Carbon Dioxide 30 H Anion Gap 11 L BUN 5 L Creatinine 0.75 Estim Creat Clear Calc 137.0 Estimated GFR > 60 POC Glucose Random Glucose 205 H Osmolality Lactic Acid 3.0 H* Lactic Acid F/U @ 2Hr Lactic Acid F/U @ 4Hr Calcium 8.6 Total Bilirubin AST ALT Alkaline Phosphatase Troponin I High Sens Total Protein Albumin Lipase Salicylates Acetaminophen Ethyl Alcohol Acetone, Qual COVID-19 ([facility]) COVID-19 Clin Com Hep Bs Antigen Hep Bs Antibody Hep B Core Total Ab Hepatitis C Ab (EIA) 10/28/21 10/28/21 08:52 13:53 WBC RBC Hgb Hct MCV MCH MCHC RDW Plt Count MPV Immature Gran % (Auto) Neut % (Auto) Lymph % (Auto) Nobles % (Auto) Eos % (Auto) Baso % (Auto) Lymph # (Auto) Nobles # (Auto) Eos # (Auto) Baso # (Auto) Abs Immat Gran (auto) Absolute Neuts (auto) Absolute Nucleated RBC Nucleated RBC % (auto) PT INR D-Dimer High Sensitivty O2 Saturation ABG pH at Pt Temp ABG pH (Temp Correct) ABG pCO2 at Pt Temp ABG pCO2 (Temp Corrct ABG pO2 at Pt Temp ABG pO2 (Temp Correct ABG HCO3 ABG Base Excess (Actual) VBG pH VBG pCO2 VBG pO2 VBG HCO3 VBG O2 Saturation VBG Base Excess Sodium Potassium Chloride Carbon Dioxide Anion Gap BUN Creatinine Estim Creat Clear Calc Estimated GFR POC Glucose 245 H 257 H Random Glucose Osmolality Lactic Acid Lactic Acid F/U @ 2Hr Lactic Acid F/U @ 4Hr Calcium Total Bilirubin AST ALT Alkaline Phosphatase Troponin I High Sens Total Protein Albumin Lipase Salicylates Acetaminophen Ethyl Alcohol Acetone, Qual COVID-19 ([facility]) COVID-19 Clin Com Hep Bs Antigen Hep Bs Antibody Hep B Core Total Ab Hepatitis C Ab (EIA) Imaging Radiology Impressions: ITS Impressions Forearm X-Ray 10/27/21 05:50 FINDINGS/IMPRESSION: Right hand: No acute fracture or dislocation. Status post resection of the fifth ray at the level of the proximal fifth metacarpal metaphysis. Moderate marginal osteophytes and subchondral sclerosis and joint space narrowing of the first CMC joint. Small marginal osteophytes throughout the metacarpophalangeal joints and interphalangeal joints. Mild degenerative changes of the radiocarpal joint. Left hand: No acute fracture or dislocation. Moderate degenerative changes of the first CMC joint and triscaphe the joints. Small marginal osteophytes throughout the metacarpophalangeal joints and interphalangeal joints. Soft tissues unremarkable. Right forearm: Radius and ulna are intact. Soft tissues unremarkable. Hand X-Ray 10/27/21 05:50 FINDINGS/IMPRESSION: Right hand: No acute fracture or dislocation. Status post resection of the fifth ray at the level of the proximal fifth metacarpal metaphysis. Moderate marginal osteophytes and subchondral sclerosis and joint space narrowing of the first CMC joint. Small marginal osteophytes throughout the metacarpophalangeal joints and interphalangeal joints. Mild degenerative changes of the radiocarpal joint. Left hand: No acute fracture or dislocation. Moderate degenerative changes of the first CMC joint and triscaphe the joints. Small marginal osteophytes throughout the metacarpophalangeal joints and interphalangeal joints. Soft tissues unremarkable. Right forearm: Radius and ulna are intact. Soft tissues unremarkable. Hand X-Ray 10/27/21 05:50 FINDINGS/IMPRESSION: Right hand: No acute fracture or dislocation. Status post resection of the fifth ray at the level of the proximal fifth metacarpal metaphysis. Moderate marginal osteophytes and subchondral sclerosis and joint space narrowing of the first CMC joint. Small marginal osteophytes throughout the metacarpophalangeal joints and interphalangeal joints. Mild degenerative changes of the radiocarpal joint. Left hand: No acute fracture or dislocation. Moderate degenerative changes of the first CMC joint and triscaphe the joints. Small marginal osteophytes throughout the metacarpophalangeal joints and interphalangeal joints. Soft tissues unremarkable. Right forearm: Radius and ulna are intact. Soft tissues unremarkable. Chest X-Ray 10/27/21 19:59 IMPRESSION: No acute intrathoracic disease. No evidence of Covid pneumonia. Mental Status Exam Mental Status Exam Narrative: A&O. Pt has superficial lacerations (self inflicted by knife) on bilateral forearm, in hospital attire, tattoos, okay hygiene, overweight). Good eye contact, attentive, tearful at times. No Tics or Tremors. No abnormal involuntary movements. Calm, cooperative, engaged. Non-pressured speech, spontaneous with regular rate and rhythm, normal volume and prosody. No prolonged speech latency or dysarthria. Mood is ?depressed,? affect is dysphoric. Currently denies active SI/ urges for self harm/ or HI upon inquiry. Denies A/VH or delusional thought content. Thoughts are coherent, organized. No known cognitive or memory impairment. Insight/ Judgment limited but adequate. Medications Medications Current Medications Dextrose (Dextrose 50 % 25 Gm/50 Ml Vial) 25 gm IVPUSH Q15M PRN; Protocol PRN Reason: per Hypoglycemia Standing Ord. Glucose (Glucose Gel 15 Gm Gel..Gram.) 15 gm PO Q15M PRN; Protocol PRN Reason: per Hypoglycemia Standing Ord. Insulin Human Lispro (Insulin Lispro 100 Unit/Ml 3 Ml Vial) 0 unit SUBCUT QIDACHS [facility]; Protocol Last Admin: 10/28/21 14:02 Dose: 6 unit Documented by: Medication (No Benzodiazepines) 1 each MISCELLANE DAILY [facility] Melatonin (Melatonin 3 Mg Tablet) 6 mg PO BEDTIME PRN PRN Reason: Insomnia Phenobarbital (Phenobarbital 15 Mg Tablet) 45 mg PO BID [facility]; Protocol Stop: 10/29/21 21:01 Last Admin: 10/28/21 09:05 Dose: 45 mg Documented by: Phenobarbital (Phenobarbital 30 Mg Tablet) 30 mg PO BID [facility]; Protocol Stop: 10/31/21 21:01 Phenobarbital (Phenobarbital 30 Mg Tablet) 30 mg PO DAILY [facility]; Protocol Stop: 11/02/21 09:01 Senna (Sennosides 8.6 Mg Tablet) 17.2 mg PO BEDTIME PRN PRN Reason: Constipation Sodium Chloride (0.9 % Sodium Chloride Flush 3 Ml Syringe) 3 ml IVFLUSH QSHIFT [facility] Last Admin: 10/28/21 09:32 Dose: 3 ml Documented by: Allergies Allergies Allergy/AdvReac Type Severity Reaction Status Date / Time No Known Allergies Allergy Unverified 07/05/20 14:44 [No Known Allergies*] Assessment & Plan Assessment & Plan (1) Alcohol use disorder, moderate, dependence: Status: Acute Code(s): F10.20 - Alcohol dependence, uncomplicated (2) MDD (major depressive disorder), recurrent episode, moderate: Status: Acute Code(s): F33.1 - Major depressive disorder, recurrent, moderate Assessment and Plan: Gonzales is a 56 y.o. Male who carries a dx of alcohol use disorder and MDD, recurrent episode. He presented to [facility] on 10/27/2021 s/p intentional overdose of metoprolol, metformin, and naproxen in an attempt to kill himself. He has self induced superficial lacerations on bilateral forearms. Pt denies have past hx of psych IPLOC, CCS/ PHP, or outpt services. No hx of past psychotropic medications, on venlafaxine from his PCP, reports benefit. Says his suicide attempt was impulsive and pt was inebriated at the time. He does admit to daily drinking and long pattern of maladaptive coping with alcohol, however he has never sought treatment and has struggled with abstinence. Pt has chronic pain issues that are not well managed. He endorses sx of depression, including poor sleep, low self esteem, guilt/ shame, and dysphoric mood. Plan: Pt is already on 1:1 for safety precautions. Pt would benefit from meeting with Recovery Team. He would also benefit from outpt therapy referral.?Pt meets criteria for IPLOC and would be voluntary for an inpatient psych admission. No medication changes initiated, as pt reports he is able to sleep with melatonin and further med adjustments for depression can be made by primary psych team when he is admitted. -Continue monitoring medically. Patient is not medically cleared. -Patient cannot leave AGAINST MEDICAL ADVICE. -Consult Care Team for bed search when medically clear. Patient will be a CV. initial treatments ordered collateral history needed ? I spent minutes with the patient and/or on the patient floor today, greater than?50% of which was spent counseling/coordinating care.
[2021-10-28 18:37] LABS: Glucose, Whole Blood 224 mg/dL (60-115)
--- NOTE | 2021-10-28 18:44 | PC.NURSE ---
pt medicated per order
[2021-10-28 19:45] VITALS: BP 184/93; PULSE 108; RESP 19; TEMP 36.4; O2SAT 97
[2021-10-28 19:59] LABS: Glucose, Whole Blood 275 mg/dL (60-115)
[2021-10-28 23:58] VITALS: BP 163/85; PULSE 90; RESP 18; TEMP 36.3; O2SAT 97
[2021-10-29 03:55] VITALS: BP 136/87; PULSE 97; RESP 20; TEMP 36.4; O2SAT 98
[2021-10-29 07:00] VITALS: BP 165/91; PULSE 78; RESP 20; TEMP 36.1; O2SAT 97
[2021-10-29 07:13] LABS: Glucose, Whole Blood 206 mg/dL (60-115)
[2021-10-29] MEDS: Insulin Lispro 100 UNIT/ML 3 ML VIAL SUBCUT ×4 (08:10→21:33)
[2021-10-29] MEDS: PHENobarbitaL 15 MG TABLET 45 MG PO ×2 (08:10→21:34)
[2021-10-29] MEDS: 0.9 % Sodium Chloride Flush 3 ML SYRINGE IVFLUSH ×2 (08:11→16:08)
--- NOTE | 2021-10-29 10:55 | PM.PNNEP ---
Subjective Subjective Date of Service: 11/01/21 Interval history: Events noted Physical Exam Vital Signs: Vital Signs: Last Vital Signs Temp 97 F 10/29/21 07:00 Pulse 78 10/29/21 07:00 Resp 20 10/29/21 07:00 BP 165/91 H 10/29/21 07:00 Pulse Ox 97 10/29/21 07:00 BMI result Body Mass Index 35.9 Const: Other: General: AO X 3, no acute distress Resp: CTA bilateral CVS: S1,S2,RRR GI: +BS, NT, no distention Skin: Neuro: motor grossly intact Psych: appropriate affect Objective Data Labs CBC & Chem 7: 10/31/21 06:17 10/31/21 06:17 Labs: Laboratory Results - last 24 hr 10/28/21 10/28/21 10/28/21 13:53 18:23 19:51 POC Glucose 257 H 224 H 275 H 10/29/21 07:09 POC Glucose 206 H Procedures Date of Service Date of Service: 10/29/21 Assessment & Plan Assessment and plan (1) Suicide attempt by multiple drug overdose: Status: Acute (2) Alcoholic intoxication: Status: Acute (3) Alcohol dependence: Status: Acute (4) COVID: Status: Acute Assessment and Plan: Acidosis- resolving Repeach chem 7 Time Spent With Patient Time: Total time spent is greater than 50% in coordination of care (as documented) at patient's floor/unit and/or counseling patient: Time with patient: less than 15 minutes Progress Note: Quality Stroke Does the patient have a stroke diagnosis?: No
[2021-10-29 11:19] LABS: Glucose, Whole Blood 259 mg/dL (60-115)
[2021-10-29 11:20] VITALS: BP 164/79; PULSE 86; RESP 18; TEMP 36.1; O2SAT 98
--- NOTE | 2021-10-29 11:20 | P.PNIM_ITS ---
Subjective Subjective Date of Service: 10/29/21 Interval History: Events noted Review of Systems no n/v, no fever, no sob. Feels fine denies SI Physical Exam Vital Signs: Vital Signs: Last Vital Signs Temp 97 F 10/29/21 07:00 Pulse 78 10/29/21 07:00 Resp 20 10/29/21 07:00 BP 165/91 H 10/29/21 07:00 Pulse Ox 97 10/29/21 07:00 BMI result Body Mass Index 35.9 Const: Other: General: AO X 3, no acute distress Resp: CTA bilateral CVS: S1,S2,RRR GI: +BS, NT, no distention Skin: Neuro: motor grossly intact Psych: appropriate affect , denies SI Objective Data Active Medications Dextrose (Dextrose 50 % 25 Gm/50 Ml Vial) 25 gm IVPUSH Q15M PRN; Protocol PRN Reason: per Hypoglycemia Standing Ord. Glucose (Glucose Gel 15 Gm Gel..Gram.) 15 gm PO Q15M PRN; Protocol PRN Reason: per Hypoglycemia Standing Ord. Insulin Human Lispro (Insulin Lispro 100 Unit/Ml 3 Ml Vial) 0 unit SUBCUT QIDACHS [facility]; Protocol Last Admin: 10/29/21 08:10 Dose: 4 unit Documented by: ROSAMARIA Medication (No Benzodiazepines) 1 each MISCELLANE DAILY [facility] Melatonin (Melatonin 3 Mg Tablet) 6 mg PO BEDTIME PRN PRN Reason: Insomnia Phenobarbital (Phenobarbital 15 Mg Tablet) 45 mg PO BID [facility]; Protocol Stop: 10/29/21 21:01 Last Admin: 10/29/21 08:10 Dose: 45 mg Documented by: ROSAMARIA Phenobarbital (Phenobarbital 30 Mg Tablet) 30 mg PO BID [facility]; Protocol Stop: 10/31/21 21:01 Phenobarbital (Phenobarbital 30 Mg Tablet) 30 mg PO DAILY [facility]; Protocol Stop: 11/02/21 09:01 Senna (Sennosides 8.6 Mg Tablet) 17.2 mg PO BEDTIME PRN PRN Reason: Constipation Sodium Chloride (0.9 % Sodium Chloride Flush 3 Ml Syringe) 3 ml IVFLUSH QSHIFT [facility] Last Admin: 10/29/21 08:11 Dose: 3 ml Documented by: ROSAMARIA Labs CBC & Chem 7: 10/28/21 07:23 01/10/22 07:23 Labs: Laboratory Results - last 24 hr 10/28/21 10/28/21 10/28/21 13:53 18:23 19:51 POC Glucose 257 H 224 H 275 H 10/29/21 10/29/21 07:09 11:15 POC Glucose 206 H 259 H Assessment and Plan (1) Suicide attempt by multiple drug overdose: Status: Acute (2) Alcoholic intoxication: Status: Acute (3) Alcohol dependence: Status: Acute (4) COVID: Status: Acute Assessment and Plan: 56-year-old male with a past medical history of hypertension, hyperlipidemia, diabetes, alcohol abuse, anxiety, depression presented to the hospital with a chief complaint of intentional overdose of metoprolol, metformin, naproxen in an attempt to kill himself.? Admitted to the hospital for following conditions Intentional Drug overdose reportedly with metformin, Naproxen and metoprolol -He is hemodynamically stable, there is no bradycardia to suggest Beta izzy toxicity, there is no hypoglycemia related to Metformin, and GI issues with Naproxen. He could not specifiy how much of these agents he took, he's been in the hospital for more than 24 hours now and so I don't think need further monitoring. [facility] is recommending section 12 and inpatient Psych admission continue 1:1 monitoring. He claims not to be suicidal at this time. Alcohol withdrawal:??Actively not withdrawing, continue Phenobarbi Lactic acidosis, ? related to Metformin, not entirely sure given normal renal fucntion, maybe completly unrelated, it is going down and at this point doesn't need constant checking following hydraion COVID positive: Assymptomatic, unremarkable CXR, monitor Transaminitis:? Monitor liver enzymes.?? Related to drug toxicity.? Will order acute hepatitis panel. History of hypertension: Restart Meds, Norvasc metoprolol Hyperlipidemia: Continue statin Diabetes:? Insulin sliding scale.?Restart oral meds DVT prophylaxis:? SCD boots Code status:? Full code Quality Stroke Does the patient have a stroke diagnosis?: No VTE Prior VTE?: No VTE Risk Level:: Medical - low VTE Device Contraindication: N/A - Device Ordered VTE Drug Contraindication: Treatment Not Indicated
[2021-10-29 15:04] VITALS: BP 146/84; PULSE 92; RESP 20; TEMP 36; O2SAT 98
[2021-10-29 16:05] LABS: Glucose, Whole Blood 212 mg/dL (60-115)
[2021-10-29] MEDS: Acetaminophen 325 MG TABLET 650 MG PO (16:07)
[2021-10-29] MEDS: amLODIPine Besylate 5 MG TABLET PO (16:08)
[2021-10-29 20:00] VITALS: BP 160/99; PULSE 99; RESP 18; TEMP 36.1; O2SAT 100
[2021-10-29 21:30] LABS: Glucose, Whole Blood 253 mg/dL (60-115)
[2021-10-29] MEDS: metFORMIN HCl 1,000 MG TABLET 1000 MG PO (21:34)
[2021-10-29] MEDS: Gabapentin 300 MG CAPSULE PO (21:34)
[2021-10-29] MEDS: Atorvastatin Calcium 40 MG TABLET PO (21:34)
[2021-10-30] VITALS (7 sets, daily range): BP systolic 145–195; BP diastolic 86–100; PULSE 82–102; RESP 16–20; TEMP 36.6–37.3; O2SAT 94–99
[2021-10-30] MEDS: 0.9 % Sodium Chloride Flush 3 ML SYRINGE IVFLUSH ×4 (00:38→20:19)
[2021-10-30 07:40] LABS: HBS Num1 0.22 mIU/mL (0-7.99)
[2021-10-30 08:32] LABS: Hepatitis A Antibody IgM 0.16 Index (0-0.79); ~Hepatitis A Antibody IgM Nonreactive (Nonreactive)
[2021-10-30] MEDS: Metoprolol Succinate ER 25 MG TAB.ER.24H PO (08:32)
[2021-10-30] MEDS: PHENobarbitaL 30 MG TABLET PO ×2 (08:32→20:19)
[2021-10-30] MEDS: metFORMIN HCl 1,000 MG TABLET 1000 MG PO ×2 (08:32→20:19)
[2021-10-30] MEDS: Gabapentin 300 MG CAPSULE PO ×3 (08:32→20:18)
[2021-10-30] MEDS: Acetaminophen 325 MG TABLET 650 MG PO (08:32)
[2021-10-30] MEDS: amLODIPine Besylate 5 MG TABLET PO (08:33)
[2021-10-30] MEDS: SITagliptin Phosphate 100 MG TABLET PO (08:33)
[2021-10-30] MEDS: Insulin Lispro 100 UNIT/ML 3 ML VIAL SUBCUT ×3 (08:33→20:19)
[2021-10-30 11:08] LABS: Glucose, Whole Blood 243 mg/dL (60-115)
--- NOTE | 2021-10-30 12:32 | MHC.CM.PN ---
Addendum entered by Yanet Avery, [facility] 10/31/21 08:14: Pt is being followed by CARE Team Original Note: pt is a sect 12 b[facility] conducting bed search
--- NOTE | 2021-10-30 14:38 | HO.PM.IMPN ---
Subjective Subjective Date of Service: 10/30/21 Interval History: no acute issues overnight. Feels back to baseline Review of Systems denies chest pain Denies shortness of breath Physical Exam Vital Signs: Vital Signs: Last Vital Signs Temp 99.1 F 10/30/21 11:31 Pulse 85 10/30/21 11:31 Resp 20 10/30/21 11:31 BP 177/91 H 10/30/21 11:31 Pulse Ox 94 10/30/21 11:31 BMI result Body Mass Index 35.9 Const: Other: no acute distress Resp: Other: clear to auscultation bilaterally no rales rhonchi wheezes Cardio: Other: no S4; positive S1-S2; no S3 murmurs/ rubs or gallops GI: Other: soft nontender nondistended with normoactive bowel sounds no rebound or guarding Neuro: Other: cranial nerves 2-12 grossly intact as tested. Motor is 5/5 all extremities. Sensation intact. Cognition appropriate Objective Data Active Medications Acetaminophen (Acetaminophen 325 Mg Tablet) 650 mg PO Q6H PRN PRN Reason: Pain, Mild (Pain Scale 1-3) Last Admin: 10/30/21 08:32 Dose: 650 mg Documented by: DAGO Amlodipine Besylate (Amlodipine Besylate 5 Mg Tablet) 5 mg PO DAILY [facility]; Protocol Last Admin: 10/30/21 08:33 Dose: 5 mg Documented by: DAGO Atorvastatin Calcium (Atorvastatin Calcium 40 Mg Tablet) 40 mg PO BEDTIME [facility] Last Admin: 10/29/21 21:34 Dose: 40 mg Documented by: KALIN Dextrose (Dextrose 50 % 25 Gm/50 Ml Vial) 25 gm IVPUSH Q15M PRN; Protocol PRN Reason: per Hypoglycemia Standing Ord. Gabapentin (Gabapentin 300 Mg Capsule) 300 mg PO TID [facility] Last Admin: 10/30/21 08:32 Dose: 300 mg Documented by: DAGO Glucose (Glucose Gel 15 Gm Gel..Gram.) 15 gm PO Q15M PRN; Protocol PRN Reason: per Hypoglycemia Standing Ord. Insulin Human Lispro (Insulin Lispro 100 Unit/Ml 3 Ml Vial) 0 unit SUBCUT QIDACHS [facility]; Protocol Last Admin: 10/30/21 11:48 Dose: 4 unit Documented by: DAGO Medication (No Benzodiazepines) 1 each MISCELLANE DAILY [facility] Melatonin (Melatonin 3 Mg Tablet) 6 mg PO BEDTIME PRN PRN Reason: Insomnia Metformin HCl (Metformin Hcl 1,000 Mg Tablet) 1,000 mg PO BID [facility] Last Admin: 10/30/21 08:32 Dose: 1,000 mg Documented by: DAGO Metoprolol Succinate (Metoprolol Succinate Er 25 Mg Tab.Er.24h) 25 mg PO DAILY [facility]; Protocol Last Admin: 10/30/21 08:32 Dose: 25 mg Documented by: DAGO Phenobarbital (Phenobarbital 30 Mg Tablet) 30 mg PO BID [facility]; Protocol Stop: 10/31/21 21:01 Last Admin: 10/30/21 08:32 Dose: 30 mg Documented by: DAGO Phenobarbital (Phenobarbital 30 Mg Tablet) 30 mg PO DAILY [facility]; Protocol Stop: 11/02/21 09:01 Senna (Sennosides 8.6 Mg Tablet) 17.2 mg PO BEDTIME PRN PRN Reason: Constipation Sitagliptin Phosphate (Sitagliptin Phosphate 100 Mg Tablet) 100 mg PO DAILY [facility] Last Admin: 10/30/21 08:33 Dose: 100 mg Documented by: DAGO Sodium Chloride (0.9 % Sodium Chloride Flush 3 Ml Syringe) 3 ml IVFLUSH QSHIFT [facility] Last Admin: 10/30/21 08:33 Dose: 3 ml Documented by: DAGO Labs CBC & Chem 7: 10/28/21 07:23 10/28/21 07:23 Labs: Laboratory Results - last 24 hr 10/27/21 10/29/21 10/29/21 23:20 16:00 20:33 POC Glucose 212 H 253 H Hepatitis A IgM Ab Nonreactive 10/30/21 10:52 POC Glucose 243 H Hepatitis A IgM Ab Assessment and Plan (1) Suicide attempt by multiple drug overdose: Status: Acute (2) COVID: Status: Acute (3) Alcohol use disorder, moderate, dependence: Status: Acute Assessment and Plan: 56-year-old male with a past medical history of hypertension, hyperlipidemia, diabetes, alcohol abuse, anxiety, depression presented to the hospital with a chief complaint of intentional overdose of metoprolol, metformin, naproxen in a suicidal attempt 1.Intentional Drug overdose Medicall stable. Care team notified 2.Alcohol Abuse No signs of withdraw. Continue Phenobarb protocol until D/C 3 COVID positive Asymptomatic....no O2 requirement 4. Transaminitis Downward trend...continue to monitor 5.HTN Acceptable control on current therapies 6. DMII Restart Metformin Sliding scale insulin DVT prophylaxis:? SCD boots Code status:? Full code Quality Stroke Does the patient have a stroke diagnosis?: No VTE Prior VTE?: No VTE Risk Level:: Medical - low VTE Device Contraindication: N/A - Device Ordered VTE Drug Contraindication: Treatment Not Indicated
[2021-10-30 16:09] LABS: Glucose, Whole Blood 120 mg/dL (60-115)
[2021-10-30 20:02] LABS: Glucose, Whole Blood 200 mg/dL (60-115)
[2021-10-30] MEDS: Atorvastatin Calcium 40 MG TABLET PO (20:19)
[2021-10-31 03:18] VITALS: BP 131/84; PULSE 94; RESP 17; TEMP 36.1; O2SAT 99
[2021-10-31 07:13] VITALS: BP 162/94; PULSE 78; RESP 20; TEMP 36.1; O2SAT 97
[2021-10-31 07:13] LABS: Glucose, Whole Blood 180 mg/dL (60-115)
[2021-10-31 07:22] LABS: MANUAL DIFF FLAG NO
[2021-10-31 07:32] LABS: Basophils Percent Auto 0.6 % (0-2); Eosinophils Absolute Auto 0.1 X10*3/uL (0.0-0.4); Eosinophils Percent Auto 1.7 % (0-4); Hematocrit 39.7 % (42.0-52.0); Hemoglobin 14.2 g/dl (14.0-18.0); Imm Gran Abs Auto 0.02 X10*3/uL (0.00-0.03); Imm Gran Pct Auto 0.6 % (0.0-0.4); Lymphocytes Absolute Auto 1.4 X10*3/uL (1.2-4.9); Lymphocytes Percent Auto 38.2 % (20-40); Mean Corpuscular HGB Conc 35.8 g/dl (31.0-36.0); Mean Corpuscular Hemoglobin 33.3 pg (27.0-33.0); Mean Platelet Volume 11.1 fL (9.4-12.4); Monocytes Absolute Auto 0.5 X10*3/uL (0.1-1.2); Monocytes Percent Auto 14.4 % (2-11); Neutrophils Absolute Auto 1.6 x10*3/uL (2.0-8.3); Neutrophils Percent Auto 44.5 % (45-73); Platelet Count 124 X10*3/uL (160-400); Red Blood Count 4.27 X10*6/uL (4.60-5.80); Red Cell Distribution Width 12.7 % (11.0-16.0); White Blood Count 3.5 X10*3/uL (4.8-10.8)
[2021-10-31 07:50] LABS: Alanine Aminotransferase 133 U/L (0-40); Albumin Level 3.6 g/dL (3.5-5.0); Alkaline Phosphatase 77 U/L (39-117); Anion Gap 10 (12-20); Aspartate Amino Transferase 67 U/L (5-37); Bilirubin Total 1.2 mg/dL (0.0-1.0); Blood Urea Nitrogen 8 mg/dL (9-16); Calcium 8.9 mg/dL (8.4-10.2); Carbon Dioxide 30 mmol/L (22-29); Chloride 102 mmol/L (96-108); Creatinine Clr Calc Pharmacy 122.3; Estimated Glomerular Filt Rate > 60; Glucose Fasting 204 mg/dL (60-99); Potassium 3.2 mmol/L (3.3-5.1); Sodium 139 mmol/L (135-145); Total Protein 6.3 g/dL (6.5-8.0)
[2021-10-31] MEDS: metFORMIN HCl 1,000 MG TABLET 1000 MG PO ×2 (09:27→19:58)
[2021-10-31] MEDS: Insulin Lispro 100 UNIT/ML 3 ML VIAL SUBCUT ×4 (09:27→22:21)
[2021-10-31] MEDS: Gabapentin 300 MG CAPSULE PO ×3 (09:27→19:58)
[2021-10-31] MEDS: amLODIPine Besylate 5 MG TABLET PO (09:27)
[2021-10-31] MEDS: Metoprolol Succinate ER 25 MG TAB.ER.24H PO (09:28)
[2021-10-31] MEDS: SITagliptin Phosphate 100 MG TABLET PO (09:28)
[2021-10-31] MEDS: PHENobarbitaL 30 MG TABLET PO ×2 (09:28→19:57)
[2021-10-31] MEDS: 0.9 % Sodium Chloride Flush 3 ML SYRINGE IVFLUSH ×3 (09:28→20:00)
[2021-10-31 11:10] LABS: Glucose, Whole Blood 233 mg/dL (60-115)
[2021-10-31 12:00] VITALS: BP 159/87; PULSE 78; RESP 20; TEMP 36.1; O2SAT 99
--- NOTE | 2021-10-31 12:29 | MHC.CM.PN ---
IMM 10/31/21 Male 56 DX ETOH W/D Covid+ Per MD higginbotham Patient is medically cleared for discharge. stated that he will contact [facility] for patient to be seen prior to discharge from [place] [id number]. Patient will arrange for transportation.
--- NOTE | 2021-10-31 13:28 | HO.PM.IMPN ---
Subjective Subjective Date of Service: 10/31/21 Interval History: doing well. No acute issues overnight Review of Systems denies chest pain Denies shortness of breath Denies nausea vomiting diarrhea Physical Exam Vital Signs: Vital Signs: Last Vital Signs Temp 96.9 F 10/31/21 12:00 Pulse 78 10/31/21 12:00 Resp 20 10/31/21 12:00 BP 159/87 H 10/31/21 12:00 Pulse Ox 99 10/31/21 12:00 BMI result Body Mass Index 35.9 Const: Other: no acute distress Resp: Other: clear to auscultation bilaterally no rales rhonchi wheezes Cardio: Other: no S4; positive S1-S2; no S3 murmurs/ rubs or gallops GI: Other: soft nontender nondistended with normoactive bowel sounds no rebound or guarding Neuro: Other: cranial nerves 2-12 grossly intact as tested. Motor is 5/5 all extremities. Sensation intact. Cognition appropriate Objective Data Active Medications Acetaminophen (Acetaminophen 325 Mg Tablet) 650 mg PO Q6H PRN PRN Reason: Pain, Mild (Pain Scale 1-3) Last Admin: 10/30/21 08:32 Dose: 650 mg Documented by: DAGO Amlodipine Besylate (Amlodipine Besylate 5 Mg Tablet) 5 mg PO DAILY [facility]; Protocol Last Admin: 10/31/21 09:27 Dose: 5 mg Documented by: TIP Atorvastatin Calcium (Atorvastatin Calcium 40 Mg Tablet) 40 mg PO BEDTIME [facility] Last Admin: 10/30/21 20:19 Dose: 40 mg Documented by: FRANCOIS Dextrose (Dextrose 50 % 25 Gm/50 Ml Vial) 25 gm IVPUSH Q15M PRN; Protocol PRN Reason: per Hypoglycemia Standing Ord. Gabapentin (Gabapentin 300 Mg Capsule) 300 mg PO TID [facility] Last Admin: 10/31/21 09:27 Dose: 300 mg Documented by: TIP Glucose (Glucose Gel 15 Gm Gel..Gram.) 15 gm PO Q15M PRN; Protocol PRN Reason: per Hypoglycemia Standing Ord. Insulin Human Lispro (Insulin Lispro 100 Unit/Ml 3 Ml Vial) 0 unit SUBCUT QIDACHS [facility]; Protocol Last Admin: 10/31/21 11:37 Dose: 4 unit Documented by: HO.[email or web address] Medication (No Benzodiazepines) 1 each MISCELLANE DAILY [facility] Melatonin (Melatonin 3 Mg Tablet) 6 mg PO BEDTIME PRN PRN Reason: Insomnia Metformin HCl (Metformin Hcl 1,000 Mg Tablet) 1,000 mg PO BID [facility] Last Admin: 10/31/21 09:27 Dose: 1,000 mg Documented by: TIP Metoprolol Succinate (Metoprolol Succinate Er 25 Mg Tab.Er.24h) 25 mg PO DAILY [facility]; Protocol Last Admin: 10/31/21 09:28 Dose: 25 mg Documented by: TIP Phenobarbital (Phenobarbital 30 Mg Tablet) 30 mg PO BID [facility]; Protocol Stop: 10/31/21 21:01 Last Admin: 10/31/21 09:28 Dose: 30 mg Documented by: TIP Phenobarbital (Phenobarbital 30 Mg Tablet) 30 mg PO DAILY [facility]; Protocol Stop: 11/02/21 09:01 Senna (Sennosides 8.6 Mg Tablet) 17.2 mg PO BEDTIME PRN PRN Reason: Constipation Sitagliptin Phosphate (Sitagliptin Phosphate 100 Mg Tablet) 100 mg PO DAILY [facility] Last Admin: 10/31/21 09:28 Dose: 100 mg Documented by: TIP Sodium Chloride (0.9 % Sodium Chloride Flush 3 Ml Syringe) 3 ml IVFLUSH QSHIFT [facility] Last Admin: 10/31/21 09:28 Dose: 3 ml Documented by: TIP Labs CBC & Chem 7: 10/31/21 06:17 10/31/21 06:17 Labs: Laboratory Results - last 24 hr 10/30/21 10/30/21 10/31/21 16:03 19:51 06:17 MCV 93.0 MCH 33.3 H MCHC 35.8 RDW 12.7 Plt Count 124 L MPV 11.1 Immature Gran % (Auto) 0.6 H Neut % (Auto) 44.5 L Lymph % (Auto) 38.2 Whitley % (Auto) 14.4 H Eos % (Auto) 1.7 Baso % (Auto) 0.6 Lymph # (Auto) 1.4 Whitley # (Auto) 0.5 Eos # (Auto) 0.1 Baso # (Auto) 0.0 Abs Immat Gran (auto) 0.02 Absolute Neuts (auto) 1.6 L Absolute Nucleated RBC 0.000 Nucleated RBC % (auto) 0.0 Anion Gap Estim Creat Clear Calc Estimated GFR POC Glucose 120 H 200 H Fasting Glucose Calcium Total Bilirubin AST ALT Alkaline Phosphatase Total Protein Albumin 10/31/21 10/31/21 10/31/21 06:17 07:08 11:07 MCV MCH MCHC RDW Plt Count MPV Immature Gran % (Auto) Neut % (Auto) Lymph % (Auto) Whitley % (Auto) Eos % (Auto) Baso % (Auto) Lymph # (Auto) Whitley # (Auto) Eos # (Auto) Baso # (Auto) Abs Immat Gran (auto) Absolute Neuts (auto) Absolute Nucleated RBC Nucleated RBC % (auto) Anion Gap 10 L Estim Creat Clear Calc 122.3 Estimated GFR > 60 POC Glucose 180 H 233 H Fasting Glucose 204 H Calcium 8.9 Total Bilirubin 1.2 H AST 67 H ALT 133 H Alkaline Phosphatase 77 Total Protein 6.3 L Albumin 3.6 Assessment and Plan (1) MDD (major depressive disorder), recurrent episode, moderate: Status: Acute (2) Alcohol use disorder, moderate, dependence: Status: Acute (3) COVID: Status: Acute Assessment and Plan: 56-year-old male with a past medical history of hypertension, hyperlipidemia, diabetes, alcohol abuse, anxiety, depression presented to the hospital with a chief complaint of intentional overdose of metoprolol, metformin, naproxen in a suicidal attempt 1.Intentional Drug overdose Medicall stable. voices no suicidal or homicidal ideation Insight markedly improved 2.Alcohol Abuse No signs of withdraw. Continue Phenobarb protocol until D/C 3 COVID positive Asymptomatic....no O2 requirement 4. Transaminitis Downward trend...continue to monitor 5.HTN Acceptable control on current therapies 6. DMII Restart Metformin Sliding scale insulin DVT prophylaxis:? SCD boots Code status:? Full code Quality Stroke Does the patient have a stroke diagnosis?: No VTE Prior VTE?: No VTE Risk Level:: Medical - low VTE Device Contraindication: N/A - Device Ordered VTE Drug Contraindication: Treatment Not Indicated
[2021-10-31 15:39] VITALS: BP 137/83; PULSE 81; RESP 18; TEMP 36.1; O2SAT 97
[2021-10-31 16:20] LABS: Glucose, Whole Blood 193 mg/dL (60-115)
[2021-10-31 17:04] LABS: Glucose, Whole Blood 181 mg/dL (60-115)
--- NOTE | 2021-10-31 19:50 | P.CNPS_ITS ---
History of Present Illness Date of Service: 10/31/2021 Chief Complaint: ETOH withdrawal Reason for Consult: Disposition Requesting physician: Gonzales Tracy Discussed with referring provider: Yes Sources of Information: patient interviewed, chart reviewed and crisis/core team assessment reviewed HPI Narrative: Gonzales is a 56 y.o. Male who carries a dx of alcohol use disorder and MDD, recurrent episode. He presented to [facility] on 10/27/2021 s/p intentional overdose of metoprolol, metformin, and naproxen in an attempt to kill himself. He has self induced superficial lacerations on bilateral forearms. He has a past medical history of hypertension, hyperlipidemia, and diabetes. Pt?s BAL was 323 on 10/27/2021, has been drinking daily. Pt found to be COVID positive, no hypoxia, tolerating room air, chest Xray showed no acute findings.? Psych consult placed for re-evaluation for disposition. I evaluated the pt this evening and upon interview he reports I feel great, I would really like to go home. Says if he goes home, his plan is for one, im not gonna be drinking, i know im an alcoholic and I cant drink. Says he would like to find better ways to keep myself busy, as he says on a day to day basis he watches television/ [employer] news 8-10 hours a day and consumes 14 beers sitting in front of the tv, a lot of the day I'm by myself, just me and the dog. Per pt, the reason we [he and his ] fought is I would sit there drinking in front of the tv, I know I can't do that. He also states that I need something to help me with my chronic pain so I can be more constructive in the house and not in bed all day long. Reports his pain medications were discontinued by his PCP and then web services manager due to him testing positive for cocaine (says this was due to cannabis he obtained from streets being laced). He is willing to go to outpt individual therapy but is opposed to group therapy and says he is not voluntary for inpatient admission because I have a lot to do, his mother in law is moving in with them within a week. Pt denies active SI, says I dont wanna . I dont wanna leave my family. He is remorseful about his attempt, tearful, says I really hurt my son. I have a lot of making up to do. Pt continues to report he has been depressed for a couple years and that it is worsening, attributes this to his alcohol abuse, provided education on co- occurring illnesses. I spoke with pt's , who reports I want him to get the help he deserves. Says since his admission to [facility], he has been talking to her daily and has disclosed hiding places for his alcohol, as his drinking behavior was more secretive than she knew. Pt also told her he has been meeting with a therapist and psych provider while on [facility], however this has not been the case. Per , pt's mother is moving in with them in the next week or so and she feels he needs to mentally deal with himself before he deals with someone else. She says he has been struggling with mood lability and irritability for years, he is up and down all the time, he definitely needs some kind of mood stabilizer. Per staff electrical engineer, pt disclosed he has been non-adherent with venlafaxine. Past Psychiatric History: -No past psych treatment. Denies past hx of suicide attempts or self injurious behavior. [facility] Medical History Asthma Back pain Diabetes Family History: -Denies Social History: -Pt lives with his and adolescent son. works for [employer] and hospice -Pt is currently unemployed, on disability due to work related injury in 2014. 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 Trauma History: -Pt lost his son at age 32 a year and half ago due to drug overdose. Had a close friend 08/2022 from MD. In 2019, pt?s father from cancer. Pt had another close friend in 2020 from liver disease. Diagnostics Vital Signs (24Hr): Vital Signs - 24 hr 10/30/21 23:20 10/31/21 03:18 10/31/21 07:13 Temperature 98.6 F 97.0 F 97 F Pulse Rate 89 94 78 Respiratory Rate 17 17 20 Blood Pressure 145/86 H 131/84 162/94 H Pulse Oximetry 96 99 97 10/31/21 12:00 10/31/21 15:39 Temperature 96.9 F 97 F Pulse Rate 78 81 Respiratory Rate 20 18 Blood Pressure 159/87 H 137/83 Pulse Oximetry 99 97 BMI result Body Mass Index 35.9 Labs Results: 10/31/21 06:17 10/31/21 06:17 Labs: Laboratory Results - last 48 hr 10/27/21 10/29/21 10/30/21 23:20 20:33 10:52 WBC RBC Hgb Hct MCV MCH MCHC RDW Plt Count MPV Immature Gran % (Auto) Neut % (Auto) Lymph % (Auto) Swain % (Auto) Eos % (Auto) Baso % (Auto) Lymph # (Auto) Swain # (Auto) Eos # (Auto) Baso # (Auto) Abs Immat Gran (auto) Absolute Neuts (auto) Absolute Nucleated RBC Nucleated RBC % (auto) Sodium Potassium Chloride Carbon Dioxide Anion Gap BUN Creatinine Estim Creat Clear Calc Estimated GFR POC Glucose 253 H 243 H Fasting Glucose Calcium Total Bilirubin AST ALT Alkaline Phosphatase Total Protein Albumin Hepatitis A IgM Ab Nonreactive 10/30/21 10/30/21 10/31/21 16:03 19:51 06:17 WBC 3.5 L RBC 4.27 L Hgb 14.2 Hct 39.7 L MCV 93.0 MCH 33.3 H MCHC 35.8 RDW 12.7 Plt Count 124 L MPV 11.1 Immature Gran % (Auto) 0.6 H Neut % (Auto) 44.5 L Lymph % (Auto) 38.2 Swain % (Auto) 14.4 H Eos % (Auto) 1.7 Baso % (Auto) 0.6 Lymph # (Auto) 1.4 Swain # (Auto) 0.5 Eos # (Auto) 0.1 Baso # (Auto) 0.0 Abs Immat Gran (auto) 0.02 Absolute Neuts (auto) 1.6 L Absolute Nucleated RBC 0.000 Nucleated RBC % (auto) 0.0 Sodium Potassium Chloride Carbon Dioxide Anion Gap BUN Creatinine Estim Creat Clear Calc Estimated GFR POC Glucose 120 H 200 H Fasting Glucose Calcium Total Bilirubin AST ALT Alkaline Phosphatase Total Protein Albumin Hepatitis A IgM Ab 10/31/21 10/31/21 10/31/21 06:17 07:08 11:07 WBC RBC Hgb Hct MCV MCH MCHC RDW Plt Count MPV Immature Gran % (Auto) Neut % (Auto) Lymph % (Auto) Swain % (Auto) Eos % (Auto) Baso % (Auto) Lymph # (Auto) Swain # (Auto) Eos # (Auto) Baso # (Auto) Abs Immat Gran (auto) Absolute Neuts (auto) Absolute Nucleated RBC Nucleated RBC % (auto) Sodium 139 Potassium 3.2 L Chloride 102 Carbon Dioxide 30 H Anion Gap 10 L BUN 8 L D Creatinine 0.84 Estim Creat Clear Calc 122.3 Estimated GFR > 60 POC Glucose 180 H 233 H Fasting Glucose 204 H Calcium 8.9 Total Bilirubin 1.2 H AST 67 H ALT 133 H Alkaline Phosphatase 77 Total Protein 6.3 L Albumin 3.6 Hepatitis A IgM Ab 10/31/21 10/31/21 16:17 16:58 WBC RBC Hgb Hct MCV MCH MCHC RDW Plt Count MPV Immature Gran % (Auto) Neut % (Auto) Lymph % (Auto) Swain % (Auto) Eos % (Auto) Baso % (Auto) Lymph # (Auto) Swain # (Auto) Eos # (Auto) Baso # (Auto) Abs Immat Gran (auto) Absolute Neuts (auto) Absolute Nucleated RBC Nucleated RBC % (auto) Sodium Potassium Chloride Carbon Dioxide Anion Gap BUN Creatinine Estim Creat Clear Calc Estimated GFR POC Glucose 193 H 181 H Fasting Glucose Calcium Total Bilirubin AST ALT Alkaline Phosphatase Total Protein Albumin Hepatitis A IgM Ab Imaging Radiology Impressions: ITS Impressions Forearm X-Ray 10/27/21 05:50 FINDINGS/IMPRESSION: Right hand: No acute fracture or dislocation. Status post resection of the fifth ray at the level of the proximal fifth metacarpal metaphysis. Moderate marginal osteophytes and subchondral sclerosis and joint space narrowing of the first CMC joint. Small marginal osteophytes throughout the metacarpophalangeal joints and interphalangeal joints. Mild degenerative changes of the radiocarpal joint. Left hand: No acute fracture or dislocation. Moderate degenerative changes of the first CMC joint and triscaphe the joints. Small marginal osteophytes throughout the metacarpophalangeal joints and interphalangeal joints. Soft tissues unremarkable. Right forearm: Radius and ulna are intact. Soft tissues unremarkable. Hand X-Ray 10/27/21 05:50 FINDINGS/IMPRESSION: Right hand: No acute fracture or dislocation. Status post resection of the fifth ray at the level of the proximal fifth metacarpal metaphysis. Moderate marginal osteophytes and subchondral sclerosis and joint space narrowing of the first CMC joint. Small marginal osteophytes throughout the metacarpophalangeal joints and interphalangeal joints. Mild degenerative changes of the radiocarpal joint. Left hand: No acute fracture or dislocation. Moderate degenerative changes of the first CMC joint and triscaphe the joints. Small marginal osteophytes throughout the metacarpophalangeal joints and interphalangeal joints. Soft tissues unremarkable. Right forearm: Radius and ulna are intact. Soft tissues unremarkable. Hand X-Ray 10/27/21 05:50 FINDINGS/IMPRESSION: Right hand: No acute fracture or dislocation. Status post resection of the fifth ray at the level of the proximal fifth metacarpal metaphysis. Moderate marginal osteophytes and subchondral sclerosis and joint space narrowing of the first CMC joint. Small marginal osteophytes throughout the metacarpophalangeal joints and interphalangeal joints. Mild degenerative changes of the radiocarpal joint. Left hand: No acute fracture or dislocation. Moderate degenerative changes of the first CMC joint and triscaphe the joints. Small marginal osteophytes throughout the metacarpophalangeal joints and interphalangeal joints. Soft tissues unremarkable. Right forearm: Radius and ulna are intact. Soft tissues unremarkable. Chest X-Ray 10/27/21 19:59 IMPRESSION: No acute intrathoracic disease. No evidence of Covid pneumonia. Mental Status Exam Mental Status Exam Narrative: A&O. Pt has superficial lacerations (self inflicted by knife) on bilateral forearms, shirtless, tattoos, okay hygiene, overweight). Good eye contact, attentive, tearful at times. No Tics or Tremors. No abnormal involuntary movements. Today pt is irritable, tearful, and not cooperative with interview as he is minimizing sx for secondary gain of discharge. Non-pressured speech, spontaneous with regular rate and rhythm, normal volume and prosody. No prolonged speech latency or dysarthria. Mood is ?depressed,? affect is tearful, irritable. Currently denies active SI/ urges for self harm/ or HI upon inquiry. However, had recent SA by overdose and cutting behavior in context of daily drinking and disclosed passive SI of it being easier if I wasn't here. Denies A/VH or delusional thought content. Thoughts are fixated on discharge. No known cognitive or memory impairment. Insight/ Judgment poor. Medications Medications Current Medications Acetaminophen (Acetaminophen 325 Mg Tablet) 650 mg PO Q6H PRN PRN Reason: Pain, Mild (Pain Scale 1-3) Last Admin: 10/30/21 08:32 Dose: 650 mg Documented by: Amlodipine Besylate (Amlodipine Besylate 5 Mg Tablet) 5 mg PO DAILY [facility]; Ria col Last Admin: 10/31/21 09:27 Dose: 5 mg Documented by: Atorvastatin Calcium (Atorvastatin Calcium 40 Mg Tablet) 40 mg PO BEDTIME [facility] Last Admin: 10/30/21 20:19 Dose: 40 mg Documented by: Dextrose (Dextrose 50 % 25 Gm/50 Ml Vial) 25 gm IVPUSH Q15M PRN; Protocol PRN Reason: per Hypoglycemia Standing Ord. Gabapentin (Gabapentin 300 Mg Capsule) 300 mg PO TID [facility] Last Admin: 10/31/21 16:20 Dose: 300 mg Documented by: Glucose (Glucose Gel 15 Gm Gel..Gram.) 15 gm PO Q15M PRN; Protocol PRN Reason: per Hypoglycemia Standing Ord. Insulin Human Lispro (Insulin Lispro 100 Unit/Ml 3 Ml Vial) 0 unit SUBCUT QIDACHS [facility]; Protocol Last Admin: 10/31/21 16:20 Dose: 2 unit Documented by: Medication (No Benzodiazepines) 1 each MISCELLANE DAILY [facility] Melatonin (Melatonin 3 Mg Tablet) 6 mg PO BEDTIME PRN PRN Reason: Insomnia Metformin HCl (Metformin Hcl 1,000 Mg Tablet) 1,000 mg PO BID [facility] Last Admin: 10/31/21 09:27 Dose: 1,000 mg Documented by: Metoprolol Succinate (Metoprolol Succinate Er 25 Mg Tab.Er.24h) 25 mg PO DAILY [facility]; Protocol Last Admin: 10/31/21 09:28 Dose: 25 mg Documented by: Phenobarbital (Phenobarbital 30 Mg Tablet) 30 mg PO BID [facility]; Protocol Stop: 10/31/21 21:01 Last Admin: 10/31/21 09:28 Dose: 30 mg Documented by: Phenobarbital (Phenobarbital 30 Mg Tablet) 30 mg PO DAILY [facility]; Protocol Stop: 11/02/21 09:01 Senna (Sennosides 8.6 Mg Tablet) 17.2 mg PO BEDTIME PRN PRN Reason: Constipation Sitagliptin Phosphate (Sitagliptin Phosphate 100 Mg Tablet) 100 mg PO DAILY [facility] Last Admin: 10/31/21 09:28 Dose: 100 mg Documented by: Sodium Chloride (0.9 % Sodium Chloride Flush 3 Ml Syringe) 3 ml IVFLUSH QSHIFT [facility] Last Admin: 10/31/21 16:21 Dose: 3 ml Documented by: Allergies Allergies Allergy/AdvReac Type Severity Reaction Status Date / Time No Known Allergies Allergy Unverified 07/05/20 14:44 [No Known Allergies*] Assessment & Plan Assessment & Plan (1) MDD (major depressive disorder), recurrent episode, moderate: Status: Acute Code(s): F33.1 - Major depressive disorder, recurrent, moderate (2) Alcohol use disorder, moderate, dependence: Status: Acute Code(s): F10.20 - Alcohol dependence, uncomplicated Assessment and Plan: Gonzales is a 56 y.o. Male who carries a dx of alcohol use disorder and MDD, recur rent episode. He presented to [facility] on 10/27/2021 s/p intentional overdose of metoprolol, metformin, and naproxen in an attempt to kill himself. He has self induced superficial lacerations on bilateral forearms. Pt denies have past hx of psych IPLOC, CCS/ PHP, or outpt services. No hx of past psychotropic medications, on venlafaxine from his PCP, however questionable adherence. Says his suicide attempt was impulsive and pt was inebriated at the time. He does admit to daily drinking and long pattern of maladaptive coping with alcohol, however he has never sought treatment and has struggled with abstinence. Pt has chronic pain issues that are not well managed. He endorses sx of depression, in cluding poor sleep, low self esteem, guilt/ shame, and dysphoric mood. 10/31: Pt re-evaluated. He continues to present with acute sx of depression and poor mood regulation, irritable and tearful throughout interview. Pt is not voluntary for inpatient psych admission and has impetuous plans to stop daily drinking habit, stop watching tv, obtain pain medications, and become a more productive member of his household (says he needs to fix his house up to accommodate his mom who is moving in with them in the next two weeks). Pt appears to be minimizing his self harm behaviors and suicide attempt. He is not a reliable historian. Pt's is in support of inpatient admission. At this time, pt continues to meet criteria for IPLOC due to significant risk factors for self harm behaviors and concern for imminent safety. Plan: Pt is already on 1:1 for safety precautions. Pt would benefit from meeting with Recovery Team. He would also benefit from outpt therapy referral. Pt may benefit from mood stabilizing agent due to impulsivity and chronic irritability, as well as counseling on alcohol abuse/ co-occurring illness. -Continue monitoring medically. Patient is not medically cleared. -Patient cannot leave AGAINST MEDICAL ADVICE. -Consult Care Team for bed search when medically clear. Patient will be a 12b. initial treatments ordered collateral history needed I spent minutes with the patient and/or on the patient floor today, greater than?50% of which was spent counseling/coordinating care.
[2021-10-31] MEDS: Potassium Chloride Packet 20 MEQ PACKET 40 MEQ PO (19:57)
[2021-10-31] MEDS: Atorvastatin Calcium 40 MG TABLET PO (19:58)
[2021-10-31 20:00] VITALS: BP 155/93; PULSE 78; RESP 17; TEMP 37.1; O2SAT 97
[2021-10-31 20:34] LABS: Glucose, Whole Blood 220 mg/dL (60-115)
[2021-10-31] MEDS: Acetaminophen 325 MG TABLET 650 MG PO (23:14)
[2021-11-01] VITALS: BP 172/97; PULSE 85; RESP 18; TEMP 36.7; O2SAT 99
[2021-11-01 00:57] LABS: COVID-19 Test Positive (Negative); IDNOW Serial# 9DD0AD1C
[2021-11-01 04:00] VITALS: BP 156/86; PULSE 86; RESP 18; TEMP 35.5; O2SAT 96
[2021-11-01] MEDS: Acetaminophen 325 MG TABLET 650 MG PO (06:37)
[2021-11-01 07:18] LABS: Glucose, Whole Blood 135 mg/dL (60-115)
[2021-11-01 08:00] VITALS: BP 157/89; PULSE 70; RESP 16; TEMP 36.2; O2SAT 98
[2021-11-01] MEDS: PHENobarbitaL 30 MG TABLET PO (09:55)
[2021-11-01] MEDS: SITagliptin Phosphate 100 MG TABLET PO (09:55)
[2021-11-01] MEDS: Metoprolol Succinate ER 25 MG TAB.ER.24H PO (09:55)
[2021-11-01] MEDS: 0.9 % Sodium Chloride Flush 3 ML SYRINGE IVFLUSH ×2 (09:55→15:39)
[2021-11-01] MEDS: amLODIPine Besylate 5 MG TABLET PO (09:55)
[2021-11-01] MEDS: metFORMIN HCl 1,000 MG TABLET 1000 MG PO (09:55)
[2021-11-01] MEDS: Gabapentin 300 MG CAPSULE PO ×2 (09:57→15:39)
[2021-11-01 11:17] LABS: Glucose, Whole Blood 171 mg/dL (60-115)
[2021-11-01] MEDS: Insulin Lispro 100 UNIT/ML 3 ML VIAL SUBCUT (11:42)
[2021-11-01 12:00] VITALS: BP 139/86; PULSE 82; RESP 16; TEMP 36.1; O2SAT 99
--- NOTE | 2021-11-01 12:12 | MHC.CM.PN ---
IMM 10/31/21 Patient will be discharged today dispo IPLOC. Per MD rounds A bed search in progress for IPpsych bed.
[2021-11-01 12:43] LABS: Potassium 4.2 mmol/L (3.3-5.1)
[2021-11-01 14:45] VITALS: BP 143/82; PULSE 88; RESP 18; TEMP 36.1; O2SAT 94
--- NOTE | 2021-11-01 16:19 | PM.DS ---
DS: Providers Provider Date of Service: 11/01/21 Date of admission: 10/27/21 21:21 Date of discharge: 11/01/21 Primary care physician: Unknown Physician Consults: 10/27/21 22:08 Consult to Psychiatry Routine Consulting Provider: Psych Covering Reason for consultation: KVNG 10/28/21 13:43 Consult to Crisis Stat Reason for consultation: Medically ready for discharge Has provider been notified: No DS: Diagnosis Discharge Diagnosis (1) Suicide attempt by multiple drug overdose: Status: Acute (2) Alcoholic intoxication: Status: Acute (3) Alcohol dependence: Status: Acute (4) COVID: Status: Acute DS: Summary Hospital Course Hospital Course: 56-year-old male with a past medical history of hypertension, hyperlipidemia, diabetes, alcohol abuse, anxiety, depression presented to the hospital with a chief complaint of intentional overdose of metoprolol, metformin, naproxen in an attempt to kill himself. admitted to a telemetry, IV fluids and Nephrology consult. Was COVID positive in the ER remains asymptomatic. Lactic acid was positive secondary to metformin ingestion which resolved with fluids. He had a brief transaminitis that again resolved with fluid. Had a history of hypertension and metoprolol and Norvasc were restarted with good control. His diabetes was well controlled with a sliding scale oral meds. At this time he is medically acceptable for transfer to Time Spent with Patient Time attestation: Total time spent providing and/or coordinating discharge services: Discharge coordination time: Greater than 30 minutes Quality: Stroke Does the patient have a stroke diagnosis?: No Physical Exam Vital Signs: Vital Signs: Last Vital Signs Temp 96.9 F 11/01/21 14:45 Pulse 88 11/01/21 14:45 Resp 18 11/01/21 14:45 BP 143/82 H 11/01/21 14:45 Pulse Ox 94 11/01/21 14:45 BMI result Body Mass Index 35.9 Const: Other: no acute distress Resp: Other: clear to auscultation bilaterally no rales rhonchi wheezes Cardio: Other: no S4; positive S1-S2; no S3 murmurs/ rubs or gallops GI: Other: soft nontender nondistended with normoactive bowel sounds no rebound or guarding Neuro: Other: cranial nerves 2-12 grossly intact as tested. Motor is 5/5 all extremities. Sensation intact. Cognition appropriate DS: Data Data Completed and Pending Labs on day of discharge: Laboratory Results - last 24 hr 10/31/21 10/31/21 10/31/21 16:17 16:58 20:31 Potassium POC Glucose 193 H 181 H 220 H COVID-19 ([facility]) COVID-19 Clin Com 11/01/21 11/01/21 11/01/21 00:36 07:10 11:12 Potassium POC Glucose 135 H 171 H COVID-19 ([facility]) Positive A COVID-19 Clin Com See Note 11/01/21 12:28 Potassium 4.2 D POC Glucose COVID-19 ([facility]) COVID-19 Clin Com Discharge Plan Discharge Disposition: Xfer Psychiatric Hosp Referrals: Physician,Bhanu J [Primary Care Provider] - 1 Week Discharge Medications: New insulin lispro [Humalog U-100 Insulin] 100 unit/mL Solution See Protocol unit subcut QIDACHS Qty: 10 RF: 0 Continued atorvastatin 40 mg tablet 1 tab PO DAILY RF: 0 amlodipine 5 mg tablet 1 tab PO DAILY RF: 0 gabapentin 300 mg capsule 1 cap PO TID RF: 0 metoprolol succinate 25 mg tablet extended release 24 hr 1 tab PO DAILY RF: 0 Januvia 100 mg tablet 1 tab PO DAILY RF: 0 metformin 1,000 mg tablet 1 tab PO BID RF: 0 Discharge Orders: Discharge Order (Routine); Ordered 11/01/21 Ordered By: Gonzales Tracy Diet: advance to usual diet Activity on Discharge: As tolerated Forms: Patient Portal Discharge page
[2021-11-01 16:21] LABS: Glucose, Whole Blood 169 mg/dL (60-115)
== END 2021-11-01 16:35 | DRG 917 ==
LOC: HO.ED 18:18 → HO.EDOVER 21:28 → HO.IMC 10-28 15:25
PROVIDERS: Clinical Nurse Specialist Psychiatric/Mental Health, Adult; Emergency Medicine; Internal Medicine; Registered Nurse; Student in an Organized Health Care Education/Training Program; Admitting Provider Hospitalist; Emergency Provider Internal Medicine; Visit Provider Hospitalist
DX: T38.3X2A Poisoning by insulin and oral hypoglycemic [antidiabetic] drugs, intentional self-harm, initial encounter (principal); U07.1 COVID-19; R45.851 Suicidal ideations; F10.239 Alcohol dependence with withdrawal, unspecified; E87.2 Acidosis; F33.1 Major depressive disorder, recurrent, moderate; T42.6X2A Poisoning by other antiepileptic and sedative-hypnotic drugs, intentional self-harm, initial encounter; T39.312A Poisoning by propionic acid derivatives, intentional self-harm, initial encounter; T44.7X2A Poisoning by beta-adrenoreceptor antagonists, intentional self-harm, initial encounter; F10.229 Alcohol dependence with intoxication, unspecified; Y90.8 Blood alcohol level of 240 mg/100 ml or more; I10 Essential (primary) hypertension; E78.5 Hyperlipidemia, unspecified; E11.9 Type 2 diabetes mellitus without complications; F41.9 Anxiety disorder, unspecified; Y92.009 Unspecified place in unspecified non-institutional (private) residence as the place of occurrence of the external cause; Z91.14 Patient's other noncompliance with medication regimen; Z79.4 Long term (current) use of insulin; Z79.84 Long term (current) use of oral hypoglycemic drugs; Z79.899 Other long term (current) drug therapy
CPT/HCPCS: 36415; 71045; 73090; 73130; 80048; 80053; 80143; 80179; 82009; 82077; 82803; 82947; 83605; 83690; 83930; 84132; 84484; 85025; 85379; 85610; 86704; 86706; 86709; 86803; 87340; 87635; 90715; 93005; 99285; J2560; J3411; U0003; U0005

== ENCOUNTER 2021-11-01 16:37 | Inpatient (IN) | payer MEDICARE, MEDICAID, SELFPAY ==
--- NOTE | 2021-11-01 17:34 | MHC.RECOVSUP ---
? Reason for consult Recovery Support o Current location: 517-2 o Identified substance use concern: Alcohol - Support ? Intervention: <del>o</del> <del>ATS</del> <del>bed</del> <del>search</del> <del>started/completed/in</del> <del>process</del> <del>o</del> <del>MAT</del> <del>started</del> <del>or</del> <del>to</del> <del>be</del> <del>started</del> <del>o</del> <del>Community</del> <del>resources</del> <del>provided</del> <del>o</del> <del>Harm</del> <del>reduction</del> <del>discussion</del> ? Plan: <del>o</del> <del>Referral</del> <del>to</del> <del>[facility]</del> <del>o</del> <del>Bed</del> <del>search</del> <del>in</del> <del>progress</del> <del>to</del> <del>o</del> <del>Follow</del> <del>up</del> <del>tomorrow</del> <del>o</del> <del>Patient</del> <del>awaiting</del> <del>crisis</del> <del>evaluation</del> <del>o</del> <del>Patient</del> <del>to</del> <del>follow</del> <del>up</del> <del>with</del> <del>[facility]</del> <del>after</del> <del>discharge</del> ? Additional information: Patient did not want any services Stating he Good. Maybe it was not a good time.
[2021-11-01] MEDS: metFORMIN HCl 1,000 MG TABLET 1000 MG PO (18:07)
[2021-11-01] MEDS: Acetaminophen 325 MG TABLET 650 MG PO (18:37)
--- NOTE | 2021-11-01 19:46 | PC.ADMIT ---
Pt is a 56 year old male who presents to from [facility] ED at approximately 1749 on a cv status. Pt is covid +. Pt transferred from the medical floor to . Per chart review, pt presented to [facility] due to an intentional toxic ingestion. Pt identifies precipitating factors as not getting along with his son right now, has had multiple recent losses, chronic pain issues, and arguing with his . Pt has been self-medicating daily with alcohol, which has intensified the last 2 years and pt's reports underlined depression/PTSD. Pt feels remorseful and identifies his attempt to be impulsive. Insight, judgment, are fair, pt is able to recognize that his drinking is problematic. Pt understands the severity of his OD what steps he needs to take. Provider called for orders and notified of admission, Pt is on a 1:1 for equipment obs. Pt denied SI,HI/AH/VH. Pt has cuts on self inflicted cuts on arms. Start treatment plan and monitor for safety.
[2021-11-01 19:56] VITALS: BP 172/92; PULSE 82; TEMP 36.2
[2021-11-01] MEDS: Insulin Lispro 100 UNIT/ML 3 ML VIAL SUBCUT (20:51)
[2021-11-01] MEDS: Atorvastatin Calcium 40 MG TABLET PO (20:51)
[2021-11-01] MEDS: Gabapentin 300 MG CAPSULE PO (20:51)
[2021-11-01] MEDS: traZODone HCL 50 MG TABLET PO (20:53)
[2021-11-01 20:58] LABS: Glucose, Whole Blood 169 mg/dL (60-115)
[2021-11-02 06:00] VITALS: BP 162/86; PULSE 77; RESP 16; TEMP 36.6; O2SAT 99
[2021-11-02 06:34] LABS: Glucose, Whole Blood 122 mg/dL (60-115)
[2021-11-02] MEDS: Acetaminophen 325 MG TABLET 650 MG PO (08:59)
[2021-11-02] MEDS: amLODIPine Besylate 5 MG TABLET PO (09:00)
[2021-11-02] MEDS: SITagliptin Phosphate 100 MG TABLET PO (09:00)
[2021-11-02] MEDS: metFORMIN HCl 1,000 MG TABLET 1000 MG PO ×2 (09:00→17:11)
[2021-11-02] MEDS: PHENobarbitaL 30 MG TABLET PO (09:00)
[2021-11-02] MEDS: Metoprolol Succinate ER 25 MG TAB.ER.24H PO (09:00)
[2021-11-02] MEDS: Gabapentin 300 MG CAPSULE PO ×3 (09:00→20:48)
--- NOTE | 2021-11-02 10:56 | HO.PSYADMNOT ---
HPI Date of Service: 11/02/21 Chief Complaint: Recurrent major depression, SI attempt, ETOH use Sources of Information: patient interviewed, chart reviewed and crisis/core team assessment reviewed HPI Subjective Notes: Caba Warning, Conditional Voluntary and 3 Day Narrative: Gonzales is a 56 y.o. Male who carries a dx of alcohol use disorder and MDD, recurrent episode, DM, HTN and HLD, COVID +, but asymptomatic, on admission. He presented to [facility] on 10/27/2021 s/p intentional overdose of metoprolol, metformin, and naproxen. He has self induced superficial lacerations on bilateral forearms. Pt denies have past hx of psych IPLOC, CCS/ PHP, or outpt services. Pt endorses depression which he's been struggling with since his father in 2019; he's also recently lost a son and close friend and suffers from chronic back pain for which he is on disability. Pt reports symptoms that include poor sleep at night, daytime sleeping, feelings of shame and guilt, low self esteem and crying episodes; he reports good self-care however. Patient says his will tell him ?all you do is sleep? and she doesnt want their son to see that. Patient acknowledges drinking excessively daily. In addition to chronic stress from relational struggles with his son, multiple recent losses due to and chronic pain, Pt reports he and his were arguing about issues on day of attempt. He denies any other SI, intent or plans and denies any preceding SI involving this event; rather, he reports this attempt was triggered by arguing while he was drunk and completely impulsive. Pt recounts that on this day he drank a little heavy, was arguing with his so left the house to have ?a few drinks? at the bar; he came back home and eventually started arguing again and out of impulse, anger and frustration he then overdosed. His called the police. He did not want them to come in the house and so superficially cut his arm which he noticed seem to keep them from approaching the door; whenever a motorcycle police officer again approached, he would make a cut. Patient however realized that the situation was escalating and so he put down the knife in exited the house however he reports he was then tazzed. -Pt denies hx of manic behaviors or episodes. -Patient says that this event was likely inevitable and it has forced him to address his drinking and his lifestyle head on. Patient said that he is very close with his brother who has been sober for decades and wants to use him as his sponsor. He said drinking 1st helps him cope with the pain but that it got out of hand and he does not want to live this life style anymore. -Patient reports that he has been taking venlafaxine prescribed by his primary care doctor. He did go off it for some time however both he and his family noticed that he was much more irritable when not taking this medication so he says he restarted it about a month ago and has taking it every day since, which he finds makes a significant improvement in his mood. -regarding trauma , patient momentarily tearful, I'v a been through a lot of shit. He says he understands how this has translated into over drinking and that he knows he needs to talk about past issues. -patient shares he is very close with his family and feels that he will be able to go home, stay abstinent and remained stable -patient reports that he has an appointment with [facility] spine for pain management -patient does not think he needs to be here and signed a 3 day notice; he feels that he has a strong support as an outpatient and is able to be safe. He reports he has no history of any self-harm or SI ever and that this was a 1 time thing. Past Psychiatric History: -No past psych treatment. Denies past hx of suicide attempts or self injurious behavior. Medical Evaluation Reviewed: Yes [facility] Medical History (Updated 11/02/21 @ 11:01 by Rene Bravo MD) Asthma Back pain Diabetes HLD (hyperlipidemia) HTN (hypertension) Family History: -Denies Social History: -Pt lives with his and adolescent son. works for [employer] and hospice -Pt is currently unemployed, on disability due to work related injury in 2014. 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 Substance History: alcohol daily (14 beers/day) Trauma History: -Pt lost his son at age 32 a year and half ago due to drug overdose. Had a close friend 08/[address] [place] In 2019, pt?s father from cancer. Pt had another close friend in 2020 from liver disease. -Other trauma i've been through a lot of shit. Diagnostics Vital Signs (24Hr): Vital Signs - 24 hr 11/01/21 19:56 11/02/21 06:00 Temperature 97.1 F 97.9 F Pulse Rate 82 77 Respiratory Rate 16 Blood Pressure 172/92 H 162/86 H Pulse Oximetry 99 Labs Results: 11/02/21 13:22 Labs: Laboratory Results - last 48 hr 11/01/21 11/02/21 20:44 06:28 POC Glucose 169 H 122 H Meds/Allergies Meds Home Medications Acetaminophen (Acetaminophen 325 Mg Tablet) 975 mg PO Q6H PRN PRN Reason: Headache/Pain Mild Scale (1-3) Al Hydroxide/Mg Hydroxide (Magnesium Hydrox/Alum Hydrox 30 Ml Oral.Susp) 30 ml PO Q6H PRN PRN Reason: Heartburn/Nausea Amlodipine Besylate (Amlodipine Besylate 5 Mg Tablet) 5 mg PO DAILY COUNT INCLUDES THE [facility]; Protocol Last Admin: 11/02/21 09:00 Dose: 5 mg Documented by: Atorvastatin Calcium (Atorvastatin Calcium 40 Mg Tablet) 40 mg PO BEDTIME COUNT INCLUDES THE [facility] Last Admin: 11/01/21 20:51 Dose: 40 mg Documented by: Gabapentin (Gabapentin 300 Mg Capsule) 300 mg PO TID COUNT INCLUDES THE [facility] Last Admin: 11/02/21 09:00 Dose: 300 mg Documented by: Glucose (Glucose Gel 15 Gm Gel..Gram.) 15 gm PO Q15M PRN PRN Reason: per Hypoglycemia Standing Ord. Hydroxyzine HCl (Hydroxyzine Hcl 25 Mg Tablet) 25 mg PO BEDTIME PRN PRN Reason: Anxiety Insulin Human Lispro (Insulin Lispro 100 Unit/Ml 3 Ml Vial) 0 unit SUBCUT QIDACHS COUNT INCLUDES THE [facility]; Protocol Last Admin: 11/02/21 12:49 Dose: 2 unit Documented by: Magnesium Hydroxide (Milk Of Magnesia 30 Ml Oral.Susp) 30 ml PO DAILY PRN PRN Reason: Constipation Melatonin (Melatonin 3 Mg Tablet) 6 mg PO BEDTIME PRN PRN Reason: Insomnia Metformin HCl (Metformin Hcl 1,000 Mg Tablet) 1,000 mg PO BIDWM COUNT INCLUDES THE [facility] Last Admin: 11/02/21 09:00 Dose: 1,000 mg Documented by: Metoprolol Succinate (Metoprolol Succinate Er 25 Mg Tab.Er.24h) 25 mg PO DAILY COUNT INCLUDES THE [facility]; Protocol Last Admin: 11/02/21 09:00 Dose: 25 mg Documented by: Prazosin HCl (Prazosin Hcl 1 Mg Capsule) 1 mg PO BEDTIME COUNT INCLUDES THE [facility]; Protocol Senna (Sennosides 8.6 Mg Tablet) 17.2 mg PO BEDTIME PRN PRN Reason: constipation Sitagliptin Phosphate (Sitagliptin Phosphate 100 Mg Tablet) 100 mg PO DAILY COUNT INCLUDES THE [facility] Last Admin: 11/02/21 09:00 Dose: 100 mg Documented by: Trazodone HCl (Trazodone Hcl 100 Mg Tablet) 100 mg PO BEDTIME PRN PRN Reason: Insomnia Venlafaxine HCl (Venlafaxine Hcl Er 37.5 Mg Cap.Er.24h) 37.5 mg PO DAILY A[facility]EN Allergies Allergies Allergy/AdvReac Type Severity Reaction Status Date / Time No Known Allergies Allergy Unverified 07/05/20 14:44 [No Known Allergies*] Mental Status Exam Mental Status Exam Narrative: A&O. Pt has superficial lacerations (self inflicted by knife) on bilateral forearms, shirtless, tattoos, adequate hygiene; Good eye contact, attentive, tearful at times. No Tics or Tremors. No abnormal involuntary movements. Cooperative and calm; Non-pressured speech, spontaneous with regular rate and rhythm, normal volume and prosody. No prolonged speech latency or dysarthria. Mood is ?better,? affect euthymic, momentarily tearful at times. Thought process logical, linear and goal oriented. Thought content on getting back to his life, pursuing sobriety. Denies any SI or urges for self harm; denies any HI. Denies A/VH or delusional thought content and none expressed. Insight and judgment: Impaired but adequate Assessment & Plan Assessment & Plan (1) MDD (major depressive disorder), recurrent episode, moderate: Status: Chronic Code(s): F33.1 - Major depressive disorder, recurrent, moderate (2) COVID: Status: Acute Code(s): U07.1 - COVID-19 (3) Suicide attempt by multiple drug overdose: Status: Acute Code(s): T50.912A - Poisoning by multiple unspecified drugs, medicaments and biological substances, intentional self-harm, initial encounter (4) Alcohol dependence: Status: Chronic Code(s): F10.20 - Alcohol dependence, uncomplicated (5) Diabetes: Status: Chronic Code(s): E11.9 - Type 2 diabetes mellitus without complications (6) HTN (hypertension): Status: Chronic Code(s): I10 - Essential (primary) hypertension (7) HLD (hyperlipidemia): Status: Chronic Code(s): E78.5 - Hyperlipidemia, unspecified Assessment and Plan: Gonzales is a 56 y.o. Male who carries a dx of alcohol use disorder and MDD, recurrent episode, DM, HTN and HLD, COVID + on admission, but asymptomatic. He presented to [facility] on 10/27/2021 s/p intentional overdose of metoprolol, metformin, and naproxen. He has self induced superficial lacerations on bilateral forearms. Pt denies have past hx of psych IPLOC, CCS/ PHP, or outpt services. Patient acknowledges that his drinking and depression were factors but remains adamant that he has had no SI in the past and that this was a completely on planned, impulsive event in the context of being intoxicated and triggered by argument with his . Patient wants discharge and explains his plans for staying stable. He wants to remain on venlafaxine which he says is helpful and has been taking consistently for the past month. Patient minimizes the risks of relapse with alcohol however he explains that he is close with his brother has been sober for decades and will have him as his sponsor. Patient admitted for further observation; will read titrate venlafaxine. Patient does seem to have a strong support network of his and other family. Patient has a 3 day notice. If he is able to demonstrate stability will likely be able to be discharged early next week. PLAN: Three day notice Q 15 minute checks Isolation room since COVID positive; he remains asymptomatic Will restart and titrate venlafaxine ER Increase acetaminophen to 1000 mg, not to exceed 3000 mg per day Increase trazodone, patient reports trouble with insomnia Start prazosin for nightmares Reason for continued inpatient stay Substantial Risk for: med/psych decompensation
[2021-11-02 12:37] LABS: Glucose, Whole Blood 171 mg/dL (60-115)
[2021-11-02] MEDS: Insulin Lispro 100 UNIT/ML 3 ML VIAL SUBCUT (12:49)
[2021-11-02 13:53] LABS: Anion Gap 12 (12-20); Blood Urea Nitrogen 10 mg/dL (9-16); Calcium 9.7 mg/dL (8.4-10.2); Carbon Dioxide 29 mmol/L (22-29); Chloride 104 mmol/L (96-108); Estimated Glomerular Filt Rate > 60; Glucose Random 189 mg/dL (60-115); Potassium 4.4 mmol/L (3.3-5.1); Sodium 141 mmol/L (135-145)
[2021-11-02] MEDS: Venlafaxine HCl ER 37.5 MG CAP.ER.24H PO (17:11)
[2021-11-02 17:35] LABS: Glucose, Whole Blood 147 mg/dL (60-115)
[2021-11-02 17:59] VITALS: BP 158/90; PULSE 67; RESP 20; TEMP 37.1
[2021-11-02 20:18] VITALS: BP 150/78; PULSE 70; RESP 18; TEMP 36.3; O2SAT 98
[2021-11-02] MEDS: Prazosin HCL 1 MG CAPSULE PO (20:48)
[2021-11-02] MEDS: Atorvastatin Calcium 40 MG TABLET PO (20:48)
[2021-11-02 20:57] LABS: Glucose, Whole Blood 132 mg/dL (60-115)
[2021-11-02] MEDS: traZODone HCL 100 MG TABLET PO (21:16)
[2021-11-02] MEDS: Acetaminophen 325 MG TABLET 975 MG PO (21:17)
[2021-11-03 06:00] VITALS: BP 158/79; PULSE 75; RESP 18; TEMP 36.3; O2SAT 98
[2021-11-03 06:35] LABS: Glucose, Whole Blood 135 mg/dL (60-115)
[2021-11-03] MEDS: amLODIPine Besylate 5 MG TABLET PO (09:33)
[2021-11-03] MEDS: Acetaminophen 325 MG TABLET 975 MG PO ×2 (09:33→21:43)
[2021-11-03] MEDS: SITagliptin Phosphate 100 MG TABLET PO (09:33)
[2021-11-03] MEDS: metFORMIN HCl 1,000 MG TABLET 1000 MG PO ×2 (09:33→17:14)
[2021-11-03] MEDS: Venlafaxine HCl ER 75 MG CAP.ER.24H PO (09:33)
[2021-11-03] MEDS: Gabapentin 300 MG CAPSULE PO ×3 (09:34→21:29)
[2021-11-03] MEDS: Metoprolol Succinate ER 25 MG TAB.ER.24H PO (09:34)
--- NOTE | 2021-11-03 10:29 | P.PNPSI_ITS ---
Subjective Subjective Date of Service: 11/03/21 Reason For Visit: Recurrent major depression, SI attempt, ETOH use Interim History: Patient reports that he is feeling good. He said that he has actually grateful for having some time to just sit and process this recent event, his life, his relationships and how to move forward. Patient says he feels excited about going home and reengaging with his family. He says that he has really thought about the extent of his alcoholism and wants to remain sober. He says he is very aware of how difficult it is going to be having watched his brother we work through sobriety, however he knows that he will lose his family eventually if he does not get this under control. Patient said that he has been talking with his on the phone and she is eager to have him return home. Patient reports some loose stool and asked for Imodium however otherwise denies any medication side effects and wants Effexor to continue to be titrated. Patient denies any SI or HI or depression, feeling that his perspective on himself and life has fundamentally changed. Mental Status Exam Mental Status Exam Narrative: A&O. Pt has superficial lacerations (self inflicted by knife) on bilateral forearms, shirtless, tattoos, adequate hygiene; Good eye contact, a ttentive;. No Tics or Tremors. No abnormal involuntary movements. Cooperative and calm; Non-pressured speech, spontaneous with regular rate and rhythm, normal volume and prosody. No prolonged speech latency or dysarthria. Mood is ?good,? affect bright, congruent; Thought process logical, linear and goal oriented.? Thought content on getting back to his life, pursuing sobriety.? Denies any SI or urges for self harm; denies any HI. Denies A/VH or delusional thought content and none expressed.? Insight and judgment:? fair and adequate Diagnostics Vital Signs (24Hr): Vital Signs - 24 hr 11/02/21 17:59 11/02/21 20:18 Temperature 98.7 F 97.3 F Pulse Rate 67 70 Respiratory Rate 20 18 Blood Pressure 158/90 H 150/78 H Pulse Oximetry 98 Labs Results: 11/02/21 13:22 Labs: Laboratory Results - last 48 hr 11/01/21 11/02/21 11/02/21 20:44 06:28 12:25 Sodium Potassium Chloride Carbon Dioxide Anion Gap BUN Creatinine Estim Creat Clear Calc Estimated GFR POC Glucose 169 H 122 H 171 H Random Glucose Calcium 11/02/21 11/02/21 11/02/21 13:22 17:08 20:53 Sodium 141 Potassium 4.4 Chloride 104 Carbon Dioxide 29 Anion Gap 12 BUN 10 Creatinine 0.88 Estim Creat Clear Calc TNP Estimated GFR > 60 POC Glucose 147 H 132 H Random Glucose 189 H Calcium 9.7 D 11/03/21 06:29 Sodium Potassium Chloride Carbon Dioxide Anion Gap BUN Creatinine Estim Creat Clear Calc Estimated GFR POC Glucose 135 H Random Glucose Calcium Medications Medications Current Medications Acetaminophen (Acetaminophen 325 Mg Tablet) 975 mg PO Q6H PRN PRN Reason: Headache/Pain Mild Scale (1-3) Last Admin: 11/03/21 09:33 Dose: 975 mg Documented by: Al Hydroxide/Mg Hydroxide (Magnesium Hydrox/Alum Hydrox 30 Ml Oral.Susp) 30 ml PO Q6H PRN PRN Reason: Heartburn/Nausea Amlodipine Besylate (Amlodipine Besylate 5 Mg Tablet) 5 mg PO DAILY [facility]; Protocol Last Admin: 11/03/21 09:33 Dose: 5 mg Documented by: Atorvastatin Calcium (Atorvastatin Calcium 40 Mg Tablet) 40 mg PO BEDTIME [facility] Last Admin: 11/02/21 20:48 Dose: 40 mg Documented by: Gabapentin (Gabapentin 300 Mg Capsule) 300 mg PO TID [facility] Last Admin: 11/03/21 09:34 Dose: 300 mg Documented by: Glucose (Glucose Gel 15 Gm Gel..Gram.) 15 gm PO Q15M PRN PRN Reason: per Hypoglycemia Standing Ord. Hydroxyzine HCl (Hydroxyzine Hcl 25 Mg Tablet) 25 mg PO BEDTIME PRN PRN Reason: Anxiety Insulin Human Lispro (Insulin Lispro 100 Unit/Ml 3 Ml Vial) 0 unit SUBCUT QIDACHS [facility]; Protocol Last Admin: 11/03/21 09:34 Dose: Not Given Documented by: Magnesium Hydroxide (Milk Of Magnesia 30 Ml Oral.Susp) 30 ml PO DAILY PRN PRN Reason: Constipation Melatonin (Melatonin 3 Mg Tablet) 6 mg PO BEDTIME PRN PRN Reason: Insomnia Metformin HCl (Metformin Hcl 1,000 Mg Tablet) 1,000 mg PO BIDWM [facility] Last Admin: 11/03/21 09:33 Dose: 1,000 mg Documented by: Metoprolol Succinate (Metoprolol Succinate Er 25 Mg Tab.Er.24h) 25 mg PO DAILY [facility]; Protocol Last Admin: 11/03/21 09:34 Dose: 25 mg Documented by: Prazosin HCl (Prazosin Hcl 1 Mg Capsule) 1 mg PO BEDTIME [facility]; Protocol Last Admin: 11/02/21 20:48 Dose: 1 mg Documented by: Senna (Sennosides 8.6 Mg Tablet) 17.2 mg PO BEDTIME PRN PRN Reason: constipation Sitagliptin Phosphate (Sitagliptin Phosphate 100 Mg Tablet) 100 mg PO DAILY [facility] Last Admin: 11/03/21 09:33 Dose: 100 mg Documented by: Trazodone HCl (Trazodone Hcl 100 Mg Tablet) 100 mg PO BEDTIME PRN PRN Reason: Insomnia Last Admin: 11/02/21 21:16 Dose: 100 mg Documented by: Venlafaxine HCl (Venlafaxine Hcl Er 75 Mg Cap.Er.24h) 75 mg PO DAILY [facility] Last Admin: 11/03/21 09:33 Dose: 75 mg Documented by: Allergies Allergies Allergy/AdvReac Type Severity Reaction Status Date / Time No Known Allergies Allergy Unverified 07/05/20 14:44 [No Known Allergies*] Assessment & Plan Assessment & Plan (1) MDD (major depressive disorder), recurrent episode, moderate: Status: Chronic Code(s): F33.1 - Major depressive disorder, recurrent, moderate (2) COVID: Status: Acute Code(s): U07.1 - COVID-19 (3) Suicide attempt by multiple drug overdose: Status: Acute Code(s): T50.912A - Poisoning by multiple unspecified drugs, medicaments and biological substances, intentional self-harm, initial encounter (4) Alcohol dependence: Status: Chronic Code(s): F10.20 - Alcohol dependence, uncomplicated (5) Diabetes: Status: Chronic Code(s): E11.9 - Type 2 diabetes mellitus without complications (6) HTN (hypertension): Status: Chronic Code(s): I10 - Essential (primary) hypertension (7) HLD (hyperlipidemia): Status: Chronic Code(s): E78.5 - Hyperlipidemia, unspecified Assessment and Plan: Gonzales is a 56 y.o. Male who carries a dx of alcohol use disorder and MDD, recurrent episode, DM, HTN and HLD, COVID + on admission, but asymptomatic. He presented to [facility] on 10/27/2021 s/p intentional overdose of metoprolol, metfor min, and naproxen. He has self induced superficial lacerations on bilateral forearms. Pt denies have past hx of psych IPLOC, CCS/ PHP, or outpt services. Patient acknowledges that his drinking and depression were factors but remains adamant that he has had no SI in the past and that this was a completely on planned, impulsive event in the context of being intoxicated and triggered by argument with his . Patient wants discharge and explains his plans for staying stable. He wants to remain on venlafaxine which he says is helpful and has been taking consistently for the past month. Patient minimizes the risks of relapse with alcohol however he explains that he is close with his brother has been sober for decades and will have him as his sponsor. Patient admitted for further observation; will read titrate venlafaxine. Patient does seem to have a strong support network of his and other family. Patient has a 3 day notice. If he is able to demonstrate stability will likely be able to be discharged early next week. -patient remains stable, in good mood and denies any SI or HI; his affect is brighter and expresses optimism about staying sober and being stable. Patient would like to discharge home, eager to re-engage with his family. Patient is not in imminent risk for harm to self or others and has a he has stable support network through his family, which includes his and his brother with whom he is close. PLAN: Three day notice Q 15 minute checks Isolation room since COVID positive; he remains asymptomatic itrate venlafaxine ER Increase acetaminophen to 1000 mg, not to exceed 3000 mg per day Increase trazodone, patient reports trouble with insomnia Start prazosin for nightmares I spent minutes with the patient and/or on the patient floor today, greater than?50% of which was spent counseling/coordinating care. Reason for contiued inpatient stay Substantial Risk for: stable for discharge
[2021-11-03] MEDS: Loperamide HCl 2 MG CAPSULE PO ×3 (10:34→21:59)
[2021-11-03 12:13] LABS: Glucose, Whole Blood 133 mg/dL (60-115)
--- NOTE | 2021-11-03 17:33 | MHC.CARE ---
RECOVERY SERVICES: Support offered, pt declined, this marketing copywriter relayed information to organ recovery coordinator on shift.
[2021-11-03 18:12] LABS: Glucose, Whole Blood 101 mg/dL (60-115)
[2021-11-03 21:00] VITALS: BP 160/77; PULSE 68; TEMP 36.8; O2SAT 98
[2021-11-03] MEDS: Atorvastatin Calcium 40 MG TABLET PO (21:29)
[2021-11-03] MEDS: Prazosin HCL 1 MG CAPSULE PO (21:29)
[2021-11-03 23:38] LABS: Glucose, Whole Blood 114 mg/dL (60-115)
[2021-11-04 06:51] LABS: Glucose, Whole Blood 119 mg/dL (60-115)
[2021-11-04 08:35] VITALS: BP 151/90; PULSE 77; TEMP 36.3; O2SAT 99
[2021-11-04] MEDS: metFORMIN HCl 1,000 MG TABLET 1000 MG PO (09:10)
[2021-11-04] MEDS: amLODIPine Besylate 5 MG TABLET PO (09:10)
[2021-11-04] MEDS: Venlafaxine HCl ER 37.5 MG CAP.ER.24H 112.5 MG PO (09:10)
[2021-11-04] MEDS: SITagliptin Phosphate 100 MG TABLET PO (09:10)
[2021-11-04] MEDS: Gabapentin 300 MG CAPSULE PO (09:10)
[2021-11-04] MEDS: Metoprolol Succinate ER 25 MG TAB.ER.24H PO (09:10)
--- NOTE | 2021-11-04 11:16 | PM.PSYDC ---
DS: Providers Provider Date of Service: 11/04/21 Date of admission: 11/01/21 16:37 Date of discharge: 11/04/21 Primary care physician: Unknown Physician Attending physician on admission: Rene Bravo Attending physician on discharge: Rene Bravo DS: Diagnosis Discharge Diagnosis (1) MDD (major depressive disorder), recurrent episode, moderate: Status: Resolved (2) COVID: Status: Acute (3) Suicide attempt by multiple drug overdose: Status: Resolved (4) Alcohol dependence: Status: Chronic (5) Diabetes: Status: Chronic (6) HTN (hypertension): Status: Chronic (7) HLD (hyperlipidemia): Status: Chronic DS: Medications Discharge Medications Home Medications: Home Medications Medication Instructions Recorded Confirmed amlodipine 5 mg tablet 1 tab PO DAILY 10/27/21 10/27/21 atorvastatin 40 mg tablet 1 tab PO DAILY 10/27/21 10/27/21 gabapentin 300 mg capsule 1 cap PO TID 10/27/21 10/27/21 metformin 1,000 mg tablet 1 tab PO BID 10/27/21 10/27/21 metoprolol succinate 25 mg 1 tab PO DAILY 10/27/21 10/27/21 tablet,extended release 24 hr sitagliptin 100 mg tablet (Januvia) 1 tab PO DAILY 10/27/21 10/27/21 Previous Rx's Medication Instructions Recorded insulin lispro 100 unit/mL See Protocol SUBCUT QIDACHS #10 ml 11/01/21 subcutaneous solution (Humalog U-100 Insulin) prazosin 1 mg capsule 1 mg PO BEDTIME 30 Days #30 cap 11/04/21 trazodone 100 mg tablet 100 mg PO BEDTIME PRN 30 Days #30 11/04/21 tab venlafaxine 150 mg tablet,extended 150 mg PO DAILY 7 Days #7 tab 11/04/21 release 24 hr venlafaxine 225 mg tablet,extended 225 mg PO DAILY 30 Days #30 tab 11/04/21 release 24 hr Mental Status Exam Mental Status Exam Narrative: A&O. Pt has superficial lacerations, well healing on bilateral forearms, shirtless, tattoos, adequate hygiene; Good eye contact, attentive;. No Tics or Tremors. No abnormal involuntary movements. Cooperative and calm; Non-pressured speech, spontaneous with regular rate and rhythm, normal volume and prosody. No prolonged speech latency or dysarthria. Mood is ?good,? affect bright, congruent; Thought process logical, linear and goal oriented.? Thought content on getting back to his life, pursuing sobriety.? Denies any SI or urges for self harm; denies any HI. Denies A/VH or delusional thought content and none expressed.? Insight and judgment:? fair and adequate Data Data Completed and Pending Completed studies during hospitalization [Text1]: 11/01/21 11/02/21 11/02/21 20:44 06:28 12:25 Sodium Potassium Chloride Carbon Dioxide Anion Gap BUN Creatinine Estim Creat Clear Calc Estimated GFR POC Glucose 169 H 122 H 171 H Random Glucose Calcium 11/02/21 11/02/21 11/02/21 13:22 17:08 20:53 Sodium 141 Potassium 4.4 Chloride 104 Carbon Dioxide 29 Anion Gap 12 BUN 10 Creatinine 0.88 Estim Creat Clear Calc TNP Estimated GFR > 60 POC Glucose 147 H 132 H Random Glucose 189 H Calcium 9.7 D 11/03/21 11/03/21 11/03/21 06:29 11:59 16:30 Sodium Potassium Chloride Carbon Dioxide Anion Gap BUN Creatinine Estim Creat Clear Calc Estimated GFR POC Glucose 135 H 133 H 101 Random Glucose Calcium 11/03/21 11/04/21 21:21 06:42 Sodium Potassium Chloride Carbon Dioxide Anion Gap BUN Creatinine Estim Creat Clear Calc Estimated GFR POC Glucose 114 119 H Random Glucose Calcium DS: Summary Hospital Course Hospital Course: Gonzales is a 56 y.o. Male who carries a dx of alcohol use disorder and MDD, recurrent episode, PTSD, DM, HTN and HLD, COVID + on admission, but asymptomatic. He presented to [facility] ED on 10/27/2021 s/p intentional overdose of metoprolol, metformin, and naproxen. He has self induced superficial lacerations on bilateral forearms. Pt denies have past hx of psych IPLOC, CCS/ PHP, or outpt services.? Patient acknowledges that his drinking and depression were factors but remains adamant that he has had no SI in the past and that this was a completely on planned, impulsive event in the context of being intoxicated and triggered by argument with his .? Patient wants discharge and explains his plans for staying stable.? He wants to remain on venlafaxine which he says is helpful and has been taking consistently for the past month.? Patient minimizes the risks of relapse with alcohol however he explains that he is close with his brother has been sober for decades and will have him as his sponsor.? Patient admitted for further observation; will read titrate venlafaxine.? He was also started on prazosin for nightmares which he felt was very helpful; trazodone also increased. Patient does seem to have a strong support network of his and other family.? Patient has a 3 day notice.? Pt continued to demonstrate stability and remained in good behavioral and impulse control. Patient is future oriented and communicates that he and his talked and have a plan going forward to help him both stay sober and work on his symptoms. Patient also is looking forward to fixing up his house since his mother is moving in with them. Machinist Bench discussed case with patient's supportive who welcomes him home and agrees that patient is stable and ready for discharge; she concurs that he has a stable support network through his family, which includes his brother with whom he is close. Patient remained in a good mood, with bright affect and continued to deny any SI or HI; he also remains optimistic about both staying sober and stable and would like to discharge home, eager to re-engage with his family.? Patient is not in imminent risk for harm to self or others and his request for discharge honored. Time spent discussing smoking cessation with patient: 3 to 10 minutes Status at Discharge Functional status at discharge: independent ambulation Overall status at discharge: patient is back to baseline Time Spent with Patient Time attestation: Total time spent providing and/or coordinating discharge services: Time spent: Greater than 30 minutes Discharge Plan Discharge Patient Disposition: Home, Self-Care Discharge Diagnosis: MDD, recurrent, severe in full remission Referrals: [facility] [Provider Group] - 1 Week (Patient has a walk in appointment in 1 week. ) Rajan Baer MD [Physician] - 1 Week (OFFICE AWARE OF PT. DISCHARGE AND THEY WILL CALL THE PT. WITH A FOLLOW-UP APPOINTMENT) Discharge Medications: New prazosin 1 mg Capsule 1 mg PO BEDTIME 30 Days Qty: 30 0RF Protocol: Hold for SBP< HOLD for SBP < : 90 trazodone 100 mg Tablet 100 mg PO BEDTIME PRN (Reason: Insomnia) 30 Days Qty: 30 0RF venlafaxine 150 mg tablet extended release 24 hr 150 mg PO DAILY 7 Days Qty: 7 0RF Rx Instructions: take 150mg daily for 1 week and then take 225mg daily venlafaxine 225 mg tablet extended release 24hr 225 mg PO DAILY 30 Days Qty: 30 0RF Rx Instructions: START 225mg AFTER complete 7 days of 150mg daily Continued atorvastatin 40 mg tablet 1 tab PO DAILY 0RF amlodipine 5 mg tablet 1 tab PO DAILY 0RF gabapentin 300 mg capsule 1 cap PO TID 0RF metoprolol succinate 25 mg tablet extended release 24 hr 1 tab PO DAILY 0RF Januvia 100 mg tablet 1 tab PO DAILY 0RF metformin 1,000 mg tablet 1 tab PO BID 0RF insulin lispro [Humalog U-100 Insulin] 100 unit/mL Solution See Protocol unit subcut QIDACHS Qty: 10 0RF Protocol: Insulin Correction Scale Less than or equal to 110 ---- Give (units): 0 111 to 150 Give (units): 0 151 to 200 Give (units): 2 201 to 250 Give (units): 4 251 to 300 Give (units): 6 301 to 350 Give (units): 8 Greater than 350 Give (units): 10 Call MD if Blood Glucose > : 350 Discharge Orders: Discharge Order (Routine); Ordered 11/04/21 Ordered By: Rene Bravo Diet: diabetic diet Activity on Discharge: As tolerated Stand Alone Forms: Patient Portal Discharge page, Community Support Care Plan Goals: Maintain mood and safe behaviors Take medications as prescribed Continue to pursue sobriety Practice coping skills Continue with outpatient providers and reach out to them as needed Health Concerns: Mood stability and behaviors Sobriety Diabetes Hypertension Hyperlipidemia Chronic back pain Plan of Treatment: Follow up with your PCP, psychiatric provider and other outpatient providers regarding above concerns Take medications as prescribed Assessment: Risk assessment at time of discharge:? Patient was interviewed prior to discharge and found to be fully oriented and without any SI or HI. Patient has insight and demonstrates good judgment in terms of wanting to pursue treatment. Patient is not in imminent risk of harm to self or others and has a safety plan that includes presenting to the closest ER or calling 911 if feeling unsafe.? Patient has been observed closely by nursing and unit staff throughout admission; patient has not engaged in any behaviors that suggest dangerousness to self or others and has demonstrated appropriate behaviors and impulse control Discharge Date/Time: 11/04/21 14:10
[2021-11-04 11:49] LABS: Glucose, Whole Blood 155 mg/dL (60-115)
--- NOTE | 2021-11-04 14:32 | PC.NURSE ---
Patient was aware and ready for discharge. Paperwork reviewed with patient and next doses explained to patient. Patient verbalized understanding. Patient was pleasant and cooperative . Patient was accompanied with belongings to the front of the building per Hospital policy.
== END 2021-11-04 14:10 | disposition home or self-care (01) | DRG 885 ==
PROVIDERS: Clinical Nurse Specialist Psychiatric/Mental Health, Adult; Admitting Provider Psychiatry & Neurology Psychiatry; Visit Provider Psychiatry & Neurology Psychiatry
DX: F33.1 Major depressive disorder, recurrent, moderate (principal); U07.1 COVID-19; R45.851 Suicidal ideations; I10 Essential (primary) hypertension; E78.5 Hyperlipidemia, unspecified; G89.29 Other chronic pain; F10.20 Alcohol dependence, uncomplicated; E11.9 Type 2 diabetes mellitus without complications; Z79.4 Long term (current) use of insulin; Z91.51 Personal history of suicidal behavior; Z79.84 Long term (current) use of oral hypoglycemic drugs; Z79.899 Other long term (current) drug therapy
CPT/HCPCS: 36415; 80048; 82947

== ENCOUNTER 2024-02-26 17:43 | Emergency (ER) | payer MEDICARE, MEDICAID, SELFPAY ==
--- NOTE | ~2024-02-26 | XR_ITS ---
EXAMINATION: PORTABLE CHEST 1 VIEW CLINICAL INFORMATION: pain. COMPARISON: 10/27/2021. TECHNIQUE: Portable frontal view of the chest was obtained. FINDINGS: Lungs are mildly hypoexpanded with mild asymmetric dilatation of the right hemidiaphragm. Otherwise the lungs are clear. No superimposed focal infiltrate, effusion, edema, or pneumothorax. Cardiac and mediastinal silhouettes within normal limits for size. Bone anchors overlying the visualized right humeral head. XR/XR chest 1V IMPRESSION: Mildly hypoexpanded but otherwise no evidence of acute disease.
[2024-02-26 17:53] VITALS: BP 114/74; BP 122/82; PULSE 190; PULSE 82; RESP 18; TEMP 36.7; O2SAT 100; O2SAT 99; BMI 38.9
[2024-02-26 18:02] LABS: MANUAL DIFF FLAG NO
--- NOTE | 2024-02-26 18:03 | ED.ARRPALP ---
HPI - Arrhythmia/Palpitations General Chief Complaint: Arrhythmia/Palpitations Stated Complaint: chest pain from significant exertion, SVT, ETOH Time Seen by Provider: 02/26/24 17:50 Source: patient Mode of arrival: EMS Limitations: no limitations History of Present Illness HPI narrative: 59 yo male with PMH of DM, HTN, HLD, alcohol use disorder was digging a ditch in the back yard developed sudden onset dizziness, dyspnea, chest pain and palpitations - chest pain was sudden radiated across left chest, gave him his mother in laws nitro x 2 no relief. EMS used vagal maneuvers and aspirin - was found to be in SVT HR 190s after SVT resolved he feels much better. He notes two years ago this happened and he was started on metoprolol has never seen a boiler mechanic, had ECHO or stress test. MD complaint: rapid heart beat and heart racing Onset (ago): hour(s) (1) Duration: now resolved Severity: moderate Context: occurred during exertion Arrhythmia history: SVT Associated symptoms: chest pain, shortness of breath, nausea and diaphoresis Treatments prior to arrival: vagal maneuvers and other (nitro x 2, aspirin 324mg) Related Data Home Medications ?Medication ?Instructions ?Recorded ?Confirmed amlodipine 5 mg tablet 1 tab PO DAILY 10/27/21 10/27/21 atorvastatin 40 mg tablet 1 tab PO DAILY 10/27/21 10/27/21 gabapentin 300 mg capsule 1 cap PO TID 10/27/21 10/27/21 metformin 1,000 mg tablet 1 tab PO BID 10/27/21 10/27/21 metoprolol succinate 25 mg 1 tab PO DAILY 10/27/21 10/27/21 tablet,extended release 24 hr sitagliptin phosphate 100 mg 1 tab PO DAILY 10/27/21 10/27/21 tablet (Januvia) Previous Rx's ?Medication ?Instructions ?Recorded insulin lispro 100 unit/mL See Protocol subcut QIDACHS #10 mL 11/01/21 subcutaneous solution (Humalog U-100 Insulin) prazosin 1 mg capsule 1 mg PO BEDTIME 30 days #30 caps 11/04/21 trazodone 100 mg tablet 100 mg PO BEDTIME PRN Insomnia 30 11/04/21 days #30 tabs venlafaxine 150 mg tablet,extended 150 mg PO DAILY 7 days #7 tabs 11/04/21 release 24 hr venlafaxine 225 mg tablet,extended 225 mg PO DAILY 30 days #30 tabs 11/04/21 release 24 hr Allergies Allergy/AdvReac Type Severity Reaction Status Date / Time No Known Allergies Allergy Verified 02/26/24 17:56 [No Known Allergies*] Review of Systems Review of Systems: Constitutional : No Weight loss, No Fever, No Chills ENT/Mouth : No sore throat, No Rhinorrhea Eyes: No Eye Pain, No Swelling Cardiovascular : pos Chest Pain, pos SOB, no Dyspnea on Exertion, No Orthopnea, No Edema, No Palpitations Respiratory : No Cough, No Sputum Gastrointestinal : pos Nausea, No Vomiting, No Diarrhea, No abdominal Pain, No Hematochezia, No Melena Genitourinary : No Dysuria, No Urinary Frequency Musculoskeletal : No joint pain, No Myalgias, No Joint Swelling Skin : No Skin Lesions, No rash Neuro : No Weakness, No Numbness, pos Dizziness, No Headache Psych : No Anxiety/Panic, No Depression Heme/Lymph: No Bruising, No Lymphadenopathy Endocrine : No Polyuria, No Polydipsia All other systems reviewed and are negative [facility] Past Medical History Attestation statement: The following information was validated with the patient. Source: old records reviewed Medical History (Updated 02/26/24 @ 22:06 by Hoda Flood DO) SVT (supraventricular tachycardia) HLD (hyperlipidemia) HTN (hypertension) Diabetes Back pain Asthma Social History Social History Household Members: None Housing: House Do you presently have visiting nurse or other home services: No Alcohol intake: current Alcohol intake frequency: 0-2 drinks per day Alcohol type: beer Comment: 1:1 sitter Patient Tobacco Use Status: Never used Tobacco Smoked in Last 30 Days: No Use of substances other than those prescribed or required for medical reasons: No Substance Use Type: Marijuana Advance Directives: No Advance Directives Information Provided: No Do you have a plan to hurt others: No Plan service: No Sexual orientation: Straight/Heterosexual Physical Exam Vital Signs: Vital Signs: Last Vital Signs Temp 98.2 F 02/26/24 21:50 Pulse 66 02/26/24 21:50 Resp 15 02/26/24 21:50 BP 136/84 02/26/24 21:50 Pulse Ox 98 02/26/24 21:50 O2 Del Method Room Air 02/26/24 21:50 BMI result Body Mass Index 38.9 Appearance: Alert. Oriented X3. No acute distress. Eyes: Pupils equal, round and reactive to light. ENT: Pharynx normal. Neck: Normal inspection. Neck supple. CVS: Normal heart rate and rhythm. Pulses normal. Respiratory: No respiratory distress. Breath sounds normal. Abdomen: Soft and nontender. Skin: Skin warm and dry. Normal skin color. Normal skin turgor. Extremities: No lower extremity edema. No calf ttp Neuro: Oriented X 3. No motor deficit. No sensory deficit. Medications Administered Discontinued Medications Generic Name Dose Route Start Last Admin Trade Name Freq PRN Reason Stop Dose Admin Sodium Chloride 1,000 mls @ 999 mls/hr 02/26/24 18:22 02/26/24 18:41 Ns IV 02/26/24 19:22 999 mls/hr .Q1H1M ONE Administration Medical Decision Making Medical Decision Making [facility] Narrative: 59 yo male with PMH of DM, HTN, HLD, alcohol use disorder here with exertional SVT and onset of CP/SOB at this time will need lytes, fluids, troponin x 2, EKG is nonischemic but with his age and risk factors will need cardiac work up at some point. Nitro did not relieve his pain during episode which is noteable. He has no risk factors for VTE. distal pulses intact doubt dissection. Differential Diagnosis Differential Diagnoses: The differential diagnosis associated with the presentation includes chest pain, SVT, lyte abnormality doubt VTE no preceding symptoms has hx of SVT Admission/Observation Consideration of admission/observation: Escalation of care including admission/observation considered repeat trop flat feels better Consult Healthcare Provider Management of the patient was discussed with: Aviation Technical Systems Specialist (Dr. Barrow discussed history follow up with outpatient stress test) Lab Data [facility] Lab Attestation statement: I reviewed the patient's lab results. 02/26/24 17:59 02/26/24 17:59 Labs: Lab Results 02/26/24 02/26/24 Range/Units 17:59 21:25 WBC 5.9 (4.8-10.8) X10*3/uL RBC 4.40 L (4.60-5.80) X10*6/uL Hgb 14.7 (14.0-18.0) g/dl Hct 40.7 L (42.0-52.0) % MCV 92.5 (80.0-98.0) fL MCH 33.4 H (27.0-33.0) pg MCHC 36.1 H (31.0-36.0) g/dl RDW 13.7 (11.0-16.0) % Plt Count 154 L (160-400) X10*3/uL MPV 10.1 (9.4-12.4) fL Immature Gran % (Auto) 0.3 (0.0-0.4) % Neut % (Auto) 65.8 (45-73) % Lymph % (Auto) 24.8 (20-40) % [place] % (Auto) 6.7 (2-11) % Eos % (Auto) 1.5 (0-4) % Baso % (Auto) 0.9 (0-2) % Lymph # (Auto) 1.5 (1.2-4.9) X10*3/uL [place] # (Auto) 0.4 (0.1-1.2) X10*3/uL Eos # (Auto) 0.1 (0.0-0.4) X10*3/uL Baso # (Auto) 0.1 (0.0-0.2) X10*3/uL Abs Immat Gran (auto) 0.02 (0.00-0.03) X10*3/uL Absolute Neuts (auto) 3.9 (2.0-8.3) x10*3/uL Absolute Nucleated RBC 0.000 (0.0-0.012) X10*3/uL Nucleated RBC % (auto) 0.0 (0.0-0.2) /100WBC Sodium 134 L (135-145) mmol/L Potassium 3.9 (3.3-5.1) mmol/L Chloride 101 (96-108) mmol/L Carbon Dioxide 17 L (22-29) mmol/L Anion Gap 20 (12-20) BUN 11 (9-16) mg/dL Creatinine 0.89 (0.5-1.4) mg/dL Estim Creat Clear Calc 116.0 Estimated GFR > 60 Random Glucose 191 H (60-115) mg/dL Calcium 8.7 D (8.4-10.2) mg/dL Magnesium 1.9 (1.6-2.6) mg/dL Total Bilirubin 1.0 (0.0-1.0) mg/dL AST 58 H (5-37) U/L ALT 104 H (0-40) U/L Alkaline Phosphatase 66 (39-117) U/L Troponin I High Sens 10.4 7.0 (<3.5-35.0) ng/L B-Natriuretic Peptide 25 (<100) pg/mL Total Protein 7.1 (6.5-8.0) g/dL Albumin 4.1 (3.5-5.0) g/dL Ethyl Alcohol 65 mg/dL Independent Interpretation I performed an independent interpretation of an: EKG and Plain X-Ray (normal ) Interpretation: Rate: 86 Rhythm: NSR [place]: left Normal P waves. Normal MIKE. Normal QRS complex. ST T wave : normal no MICHELE qTC: 423 prior studies: no acute ischemia The study has been interpreted contemporaneously by me. . Radiology Impression Discussion of test interpretation with radiology: I have reviewed the radiologist's reading. Discharge Plan Discharge Clinical Impression: SVT (supraventricular tachycardia) Chest pain Qualifiers: Chest pain type: unspecified Qualified Code(s): R07.9 - Chest pain, unspecified Patient Disposition: Home, Self-Care Instructions: Chest Pain (ED), Supraventricular Tachycardia (ED) Additional Instructions: take 81mg aspirin daily no strenuous activity at all until you have outpatient stress test - please call your doctor and cardiology for this return for any worsening symptoms or concerns. do not ignore it. Prescriptions: No Action prazosin 1 mg Capsule 1 mg PO BEDTIME 30 Days Qty: 30 0RF Protocol: Hold for SBP< HOLD for SBP < : 90 trazodone 100 mg Tablet 100 mg PO BEDTIME PRN (Reason: Insomnia) 30 Days Qty: 30 0RF venlafaxine 150 mg tablet extended release 24 hr 150 mg PO DAILY 7 Days Qty: 7 0RF Rx Instructions: take 150mg daily for 1 week and then take 225mg daily venlafaxine 225 mg tablet extended release 24hr 225 mg PO DAILY 30 Days Qty: 30 0RF Rx Instructions: START 225mg AFTER complete 7 days of 150mg daily atorvastatin 40 mg tablet 1 tab PO DAILY amlodipine 5 mg tablet 1 tab PO DAILY gabapentin 300 mg capsule 1 cap PO TID metoprolol succinate 25 mg tablet extended release 24 hr 1 tab PO DAILY Januvia 100 mg tablet 1 tab PO DAILY metformin 1,000 mg tablet 1 tab PO BID insulin lispro [Humalog U-100 Insulin] 100 unit/mL Solution See Protocol subcut QIDACHS Qty: 10 0RF Protocol: Insulin Correction Scale Less than or equal to 110 ---- Give (units): 0 111 to 150 Give (units): 0 151 to 200 Give (units): 2 201 to 250 Give (units): 4 251 to 300 Give (units): 6 301 to 350 Give (units): 8 Greater than 350 Give (units): 10 Call MD if Blood Glucose > : 350 Referrals: Addi Barrow MD [Physician] - (call thursday to schedule outpatient stress test) Print Language: [place] Citizen
--- NOTE | 2024-02-26 18:06 | PC.NURSE ---
pt presents to ED while s/p doing yard work at home pt had 3 beers throughout day. pt had sudden onset nonradiating sternal c/p and sob. came home - saw status of pt - gave nitro x 2 w/o success. upon EMS arrival - pt in SVT at 190 bpm. pt performed vagal maneuvers w/ success/converted back to nsr. c/p subsided. EMS administered 324mg ASA. upon ED arrival - pt a&ox4. vss and up to date. nsr on the small engine mechanic. on RA - no sob/wob noted. respirations even and unlabored. pt denies chest pain. only c/o is WALHS. pt educated that is most likely side effect from nitro. 18gIV placed in left AC via EMS - labs obtained/sent to lab. ekg performed by tech. pt waiting to see ED provider at this time. plan of care ongoing. call anderson placed within reach.
[2024-02-26 18:09] LABS: Basophils Absolute Auto 0.1 X10*3/uL (0.0-0.2); Basophils Percent Auto 0.9 % (0-2); Eosinophils Absolute Auto 0.1 X10*3/uL (0.0-0.4); Eosinophils Percent Auto 1.5 % (0-4); Hematocrit 40.7 % (42.0-52.0); Hemoglobin 14.7 g/dl (14.0-18.0); Imm Gran Abs Auto 0.02 X10*3/uL (0.00-0.03); Imm Gran Pct Auto 0.3 % (0.0-0.4); Lymphocytes Absolute Auto 1.5 X10*3/uL (1.2-4.9); Lymphocytes Percent Auto 24.8 % (20-40); Mean Corpuscular HGB Conc 36.1 g/dl (31.0-36.0); Mean Corpuscular Hemoglobin 33.4 pg (27.0-33.0); Mean Corpuscular Volume 92.5 fL (80.0-98.0); Mean Platelet Volume 10.1 fL (9.4-12.4); Monocytes Absolute Auto 0.4 X10*3/uL (0.1-1.2); Monocytes Percent Auto 6.7 % (2-11); Neutrophils Absolute Auto 3.9 x10*3/uL (2.0-8.3); Neutrophils Percent Auto 65.8 % (45-73); Platelet Count 154 X10*3/uL (160-400); Red Cell Distribution Width 13.7 % (11.0-16.0); White Blood Count 5.9 X10*3/uL (4.8-10.8)
--- NOTE | 2024-02-26 18:09 | ECG_ITS ---
Test Reason : DYSPNEA Blood Pressure : / mmHG Vent. Rate : 086 BPM Atrial Rate : 086 BPM P-R Int : 142 ms QRS Dur : 076 ms QT Int : 354 ms P-R-T Axes : 032 -27 023 degrees QTc Int : 423 ms Normal sinus rhythm Normal ECG When compared with ECG of 27-OCT-2021 16:08, No significant change was found Referred By: Hoda Flood Electronically Signed By:Addi Barrow
[2024-02-26 18:19] LABS: Alanine Aminotransferase 104 U/L (0-40); Albumin Level 4.1 g/dL (3.5-5.0); Alkaline Phosphatase 66 U/L (39-117); Anion Gap 20 (12-20); Aspartate Amino Transferase 58 U/L (5-37); Blood Urea Nitrogen 11 mg/dL (9-16); Calcium 8.7 mg/dL (8.4-10.2); Carbon Dioxide 17 mmol/L (22-29); Chloride 101 mmol/L (96-108); Estimated Glomerular Filt Rate > 60; Ethanol 65 mg/dL; Glucose Random 191 mg/dL (60-115); Magnesium 1.9 mg/dL (1.6-2.6); Potassium 3.9 mmol/L (3.3-5.1); Sodium 134 mmol/L (135-145); Total Protein 7.1 g/dL (6.5-8.0)
[2024-02-26 18:26] LABS: Troponin-I High Sensitivity 10.4 ng/L (<3.5-35.0)
[2024-02-26] MEDS: 0.9 % Sodium Chloride 1,000 ML 999 ML IV (18:41)
--- NOTE | 2024-02-26 18:41 | PC.NURSE ---
IVF administered per provider order. pt still verbalizing no chest pain/palpitations. no sob/wob noted. pt spoke w/ dr. schreiber/aware of plan of care moving forward. chest xray results pending. plan of care ongoing. call anderson placed within reach.
[2024-02-26 18:43] VITALS: BP 127/79; PULSE 78; RESP 18; O2SAT 98
[2024-02-26 18:47] LABS: B Type Natriuretic Peptide 25 pg/mL (<100)
[2024-02-26 21:50] VITALS: BP 136/84; PULSE 66; RESP 15; TEMP 36.8; O2SAT 98
[2024-02-26 22:43] VITALS: BP 136/84; PULSE 69; RESP 16; TEMP 36.8
== END 2024-02-26 22:54 | disposition home or self-care (01) ==
PROVIDERS: Emergency Provider Emergency Medicine; PCP Internal Medicine
DX: R07.89 Other chest pain (principal); I49.9 Cardiac arrhythmia, unspecified; I10 Essential (primary) hypertension; R11.0 Nausea; M25.50 Pain in unspecified joint; R06.02 Shortness of breath; Z79.899 Other long term (current) drug therapy
CPT/HCPCS: 36415; 71045; 80053; 80307; 83735; 83880; 84484; 85025; 93005; 96360; 99284; 99285

== ENCOUNTER → 2024-02-26 18:09 | Outpatient (BNV) | payer MEDICARE, MEDICAID, SELFPAY | PROVIDERS: Emergency Provider Emergency Medicine; PCP Internal Medicine; Visit Provider Internal Medicine Cardiovascular Disease | DX: R06.00 Dyspnea, unspecified (principal) | CPT/HCPCS: 93010 ==

== ENCOUNTER 2024-02-28 16:07 | Emergency (ER) | payer MEDICARE, MEDICAID, SELFPAY ==
[2024-02-28 16:13] VITALS: BP 106/63; BP 124/90; PULSE 75; RESP 20; TEMP 36.6; O2SAT 98; O2SAT 99; BMI 37.1
--- NOTE | 2024-02-28 16:19 | ECG_ITS ---
Test Reason : SVT Blood Pressure : / mmHG Vent. Rate : 075 BPM Atrial Rate : 075 BPM P-R Int : 154 ms QRS Dur : 078 ms QT Int : 374 ms P-R-T Axes : 022 -23 026 degrees QTc Int : 417 ms Normal sinus rhythm Normal ECG When compared with ECG of 26-FEB-2024 17:47, No significant change was found Referred By: Generic ED Physician Electronically Signed By:KYAW CHAVES MD
[2024-02-28 16:57] LABS: MANUAL DIFF FLAG NO
[2024-02-28 16:59] LABS: Basophils Percent Auto 0.6 % (0-2); Eosinophils Absolute Auto 0.1 X10*3/uL (0.0-0.4); Eosinophils Percent Auto 1.4 % (0-4); Hematocrit 39.6 % (42.0-52.0); Hemoglobin 14.2 g/dl (14.0-18.0); Imm Gran Abs Auto 0.01 X10*3/uL (0.00-0.03); Imm Gran Pct Auto 0.2 % (0.0-0.4); Lymphocytes Absolute Auto 1.5 X10*3/uL (1.2-4.9); Lymphocytes Percent Auto 30.2 % (20-40); Mean Corpuscular HGB Conc 35.9 g/dl (31.0-36.0); Mean Corpuscular Hemoglobin 33.8 pg (27.0-33.0); Mean Corpuscular Volume 94.3 fL (80.0-98.0); Mean Platelet Volume 10.1 fL (9.4-12.4); Monocytes Absolute Auto 0.4 X10*3/uL (0.1-1.2); Monocytes Percent Auto 8.1 % (2-11); Neutrophils Percent Auto 59.5 % (45-73); Platelet Count 122 X10*3/uL (160-400); Red Cell Distribution Width 13.8 % (11.0-16.0)
[2024-02-28 17:10] VITALS: BP 127/76; PULSE 70; RESP 14; O2SAT 98
[2024-02-28 17:14] LABS: Alanine Aminotransferase 94 U/L (0-40); Albumin Level 3.7 g/dL (3.5-5.0); Alkaline Phosphatase 62 U/L (39-117); Anion Gap 15 (12-20); Aspartate Amino Transferase 62 U/L (5-37); Bilirubin Total 0.8 mg/dL (0.0-1.0); Blood Urea Nitrogen 11 mg/dL (9-16); Calcium 9.1 mg/dL (8.4-10.2); Carbon Dioxide 21 mmol/L (22-29); Chloride 105 mmol/L (96-108); Creatinine Clr Calc Pharmacy 121.4; Estimated Glomerular Filt Rate > 60; Glucose Random 91 mg/dL (60-115); Lipase 17 U/L (8-78); Magnesium 1.7 mg/dL (1.6-2.6); Phosphorus 2.3 mg/dL (2.7-4.5); Potassium 3.9 mmol/L (3.3-5.1); Sodium 137 mmol/L (135-145); Total Protein 6.5 g/dL (6.5-8.0)
[2024-02-28 17:21] LABS: Troponin-I High Sensitivity 5.5 ng/L (<3.5-35.0)
--- NOTE | 2024-02-28 17:36 | ED.GENADULT ---
HPI - General Adult General Chief complaint: Arrhythmia/Palpitations Stated complaint: SVT Time Seen by Provider: 02/28/24 16:29 Source: patient, RN notes reviewed and old records reviewed Mode of arrival: EMS Limitations: no limitations History of Present Illness HPI narrative: 59-year-old male past medical history significant for hypertension, hyperlipidemia, alcohol dependence, diabetes, SVT presents for evaluation of ?SVT. ? Patient arrives via EMS. Apparently prior to arrival he was ?laying a laminate floor. He fetl midsternal chest pressure with palpitations and shortness of breath. He states it felt similar to his previous episodes of SVT which was 2 years ago and then 2 days ago Patient reports trying vagal maneuvers without improvement When the ambulance arrived he was found to be in SVT as high as 200 Vagal maneuvers were attempted once more without success The patient was given adenosine 6 mg and then adenosine 12 mg with conversion to sinus rhythm The patient arrived to the ED asymptomatic He denies any chest pain, palpitations, shortness of breath Denies any recent alcohol or drug abuse He plans to call Cardiology tomorrow Related Data Home Medications ?Medication ?Instructions ?Recorded ?Confirmed amlodipine 5 mg tablet 1 tab PO DAILY 10/27/21 10/27/21 atorvastatin 40 mg tablet 1 tab PO DAILY 10/27/21 10/27/21 gabapentin 300 mg capsule 1 cap PO TID 10/27/21 10/27/21 metformin 1,000 mg tablet 1 tab PO BID 10/27/21 10/27/21 metoprolol succinate 25 mg 1 tab PO DAILY 10/27/21 10/27/21 tablet,extended release 24 hr sitagliptin phosphate 100 mg 1 tab PO DAILY 10/27/21 10/27/21 tablet (Januvia) Previous Rx's ?Medication ?Instructions ?Recorded insulin lispro 100 unit/mL See Protocol subcut QIDACHS #10 mL 11/01/21 subcutaneous solution (Humalog U-100 Insulin) prazosin 1 mg capsule 1 mg PO BEDTIME 30 days #30 caps 11/04/21 trazodone 100 mg tablet 100 mg PO BEDTIME PRN Insomnia 30 11/04/21 days #30 tabs venlafaxine 150 mg tablet,extended 150 mg PO DAILY 7 days #7 tabs 11/04/21 release 24 hr venlafaxine 225 mg tablet,extended 225 mg PO DAILY 30 days #30 tabs 11/04/21 release 24 hr Allergies Allergy/AdvReac Type Severity Reaction Status Date / Time No Known Allergies Allergy Verified 02/28/24 16:17 [No Known Allergies*] Review of Systems Constitutional: Constitutional: Denies body ache(s), Denies chills and Denies fever(s) Eyes: Eyes: Denies blurry vision ENT: Denies sore throat Cardiovascular: Cardiovascular: Denies chest pain, Reports lightheadedness (Resolved), Reports palpitations (Resolved) and Denies dyspnea Respiratory: Respiratory: Denies cough and Denies dyspnea Gastrointestinal: Gastrointestinal: Denies abdominal pain Musculoskeletal: Musculoskeletal: Denies back pain and Denies myalgias Integumentary/Breasts: Skin/Breast: Denies rash Endocrine: Endocrine: Reports palpitations (Resolved) [facility] Past Medical History Medical History (Updated 02/28/24 @ 17:46 by Jonnathan Yun) SVT (supraventricular tachycardia) HLD (hyperlipidemia) HTN (hypertension) Diabetes Back pain Asthma Social History Social History Household Members: None Housing: House Do you presently have visiting nurse or other home services: No Alcohol intake: current Alcohol intake frequency: 0-2 drinks per day Alcohol type: beer Comment: 1:1 sitter Patient Tobacco Use Status: Never used Tobacco Smoked in Last 30 Days: No Use of substances other than those prescribed or required for medical reasons: No Substance Use Type: Marijuana Advance Directives: No Advance Directives Information Provided: No service: No Sexual orientation: Straight/Heterosexual Physical Exam ED Vital Signs: Vital Signs - 24 hr 02/28/24 16:13 02/28/24 17:10 Temperature 98 F Pulse Rate 75 70 Respiratory Rate 20 14 Blood Pressure 106/63 127/76 Pulse Oximetry 99 98 Oxygen Delivery Method Room Air Room Air BMI result Body Mass Index 37.1 Const General: healthy appearing, comfortable, no acute distress, alert and awake Nutritional Appearance: well nourished Orientation/consciousness: patient oriented x3 HENMT Head: Yes normocephalic and Yes atraumatic Eyes Eyelids: Yes eyelids normal Conjunctivae: conjunctivae normal Sclerae: sclerae normal Corneas: corneas normal Pupils: Equal, round and reactive pupils present EOM: EOMs intact bilaterally Neck Neck: Yes full ROM Resp Effort & Inspection: normal respiratory effort, able to speak in complete sentences and not labored Cardio Rate: regular rate Rhythm: regular rhythm GI Inspection: No distended Palpation (GI): Soft to palpation, not firm, nontender, no guarding and not rigid Skin General skin exam: elasticity normal Neuro General: patient oriented x3 Cranial nerves: Yes Equal, round and reactive pupils present and Yes Bilaterally intact EOM present Cognition (Neuro): normal cognition Extrem Other: Moving all extremities well without any obvious deformities Course Reevaluation(s) Reevaluation #1: Patient has been observed for over 2 hours, he remains in normal sinus rhythm, he has had no further symptoms. Labs are reassuring, no significant electrolyte abnormalities, troponin within normal limits. The patient is stable for discharge at this time Time: 18:24 Medical Decision Making Medical Decision Making [facility] Narrative: 59-year-old male past medical history as documented above presents for evaluation of palpitations and shortness of breath. Per EMS use found to be in SVT as high as 200. Unfortunately this was not captured on an EKG but the patient is currently asymptomatic after receiving adenosine. Plan for basic labs, cardiac monitoring. The patient was seen here 2 days ago for SVT and already has cardiology referral and plans to call tomorrow. On both occasions, the patient's SVT started with exertion. He was taking a ditch 2 days ago and he was laying floor today. I encouraged the patient assuming he is discharged he should avoid any strenuous activity until he follows up with cardiology Differential Diagnosis Differential Diagnoses: The differential diagnosis associated with the presentation includes SVT Arrhythmia AFib A flutter Dizziness Orthostasis Lab Data [facility] Lab Attestation statement: I reviewed the patient's lab results. No leukocytosis. The patient has a normal hemoglobin but a hematocrit just below normal at 39.6. This is normocytic. Platelet count slightly low at 122. This may related to history of alcohol abuse. Sodium, potassium, chloride are within normal limits. Magnesium is within normal limits at 1.7. The patient has a mild transaminitis which is likely related to history of alcohol abuse. Within normal limits at 5.5 02/28/24 16:53 02/28/24 16:53 Labs: Lab Results 02/28/24 Range/Units 16:53 WBC 5.0 (4.8-10.8) X10*3/uL RBC 4.20 L (4.60-5.80) X10*6/uL Hgb 14.2 (14.0-18.0) g/dl Hct 39.6 L (42.0-52.0) % MCV 94.3 (80.0-98.0) fL MCH 33.8 H (27.0-33.0) pg MCHC 35.9 (31.0-36.0) g/dl RDW 13.8 (11.0-16.0) % Plt Count 122 L (160-400) X10*3/uL MPV 10.1 (9.4-12.4) fL Immature Gran % (Auto) 0.2 (0.0-0.4) % Neut % (Auto) 59.5 (45-73) % Lymph % (Auto) 30.2 (20-40) % [place] % (Auto) 8.1 (2-11) % Eos % (Auto) 1.4 (0-4) % Baso % (Auto) 0.6 (0-2) % Lymph # (Auto) 1.5 (1.2-4.9) X10*3/uL [place] # (Auto) 0.4 (0.1-1.2) X10*3/uL Eos # (Auto) 0.1 (0.0-0.4) X10*3/uL Baso # (Auto) 0.0 (0.0-0.2) X10*3/uL Abs Immat Gran (auto) 0.01 (0.00-0.03) X10*3/uL Absolute Neuts (auto) 3.0 (2.0-8.3) x10*3/uL Absolute Nucleated RBC 0.000 (0.0-0.012) X10*3/uL Nucleated RBC % (auto) 0.0 (0.0-0.2) /100WBC Sodium 137 (135-145) mmol/L Potassium 3.9 (3.3-5.1) mmol/L Chloride 105 (96-108) mmol/L Carbon Dioxide 21 L (22-29) mmol/L Anion Gap 15 (12-20) BUN 11 (9-16) mg/dL Creatinine 0.83 (0.5-1.4) mg/dL Estim Creat Clear Calc 121.4 Estimated GFR > 60 Random Glucose 91 (60-115) mg/dL Calcium 9.1 (8.4-10.2) mg/dL Phosphorus 2.3 L (2.7-4.5) mg/dL Magnesium 1.7 (1.6-2.6) mg/dL Total Bilirubin 0.8 (0.0-1.0) mg/dL AST 62 H (5-37) U/L ALT 94 H (0-40) U/L Alkaline Phosphatase 62 (39-117) U/L Troponin I High Sens 5.5 (<3.5-35.0) ng/L Total Protein 6.5 (6.5-8.0) g/dL Albumin 3.7 (3.5-5.0) g/dL Lipase 17 (8-78) U/L Independent Interpretation I performed an independent interpretation of an: EKG (Normal sinus rhythm with a rate of [address] segment changes. No ectopy) Discharge Plan Discharge Clinical Impression: Heart palpitations Patient Disposition: Home, Self-Care Instructions: Supraventricular Tachycardia (ED) Additional Instructions: Follow-up with cardiology by calling tomorrow as previously planned. I recommend avoiding strenuous activity until you follow-up with cardiology Return for new or worsening symptoms Prescriptions: No Action prazosin 1 mg Capsule 1 mg PO BEDTIME 30 Days Qty: 30 0RF Protocol: Hold for SBP< HOLD for SBP < : 90 trazodone 100 mg Tablet 100 mg PO BEDTIME PRN (Reason: Insomnia) 30 Days Qty: 30 0RF venlafaxine 150 mg tablet extended release 24 hr 150 mg PO DAILY 7 Days Qty: 7 0RF Rx Instructions: take 150mg daily for 1 week and then take 225mg daily venlafaxine 225 mg tablet extended release 24hr 225 mg PO DAILY 30 Days Qty: 30 0RF Rx Instructions: START 225mg AFTER complete 7 days of 150mg daily atorvastatin 40 mg tablet 1 tab PO DAILY amlodipine 5 mg tablet 1 tab PO DAILY gabapentin 300 mg capsule 1 cap PO TID metoprolol succinate 25 mg tablet extended release 24 hr 1 tab PO DAILY Januvia 100 mg tablet 1 tab PO DAILY metformin 1,000 mg tablet 1 tab PO BID insulin lispro [Humalog U-100 Insulin] 100 unit/mL Solution See Protocol subcut QIDACHS Qty: 10 0RF Protocol: Insulin Correction Scale Less than or equal to 110 ---- Give (units): 0 111 to 150 Give (units): 0 151 to 200 Give (units): 2 201 to 250 Give (units): 4 251 to 300 Give (units): 6 301 to 350 Give (units): 8 Greater than 350 Give (units): 10 Call MD if Blood Glucose > : 350 Referrals: Addi Barrow MD [Physician] - (SVT) Print Language: [place]
[2024-02-28 18:36] VITALS: BP 127/76; PULSE 70; RESP 14; TEMP 36.6; O2SAT 98
== END 2024-02-28 18:36 | disposition home or self-care (01) ==
PROVIDERS: Physician Assistant; Emergency Provider Emergency Medicine
DX: I49.9 Cardiac arrhythmia, unspecified (principal); R00.2 Palpitations; R06.02 Shortness of breath; Z79.899 Other long term (current) drug therapy
CPT/HCPCS: 36415; 80053; 83690; 83735; 84100; 84484; 85025; 93005; 99284; 99285

== ENCOUNTER → 2024-02-28 16:19 | Outpatient (BNV) | payer MEDICARE, MEDICAID, SELFPAY | PROVIDERS: Emergency Provider Emergency Medicine; Visit Provider Internal Medicine Cardiovascular Disease | DX: I47.10 Supraventricular tachycardia, unspecified (principal) | CPT/HCPCS: 93010 ==

== ENCOUNTER 2024-05-24 14:21 | Outpatient (AMB) | payer MEDICARE, MEDICAID, SELFPAY ==
--- NOTE | 2024-05-24 14:53 | MHC.OFFVIS ---
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[place]/SVT/cp Music Therapist Required: No Accompanied by: Spouse Allergies No Known Allergies [No Known Allergies*] Allergy (Verified 02/28/24 16:17) Medication List - Last Reconciled 05/24/24 by Bimal Eastman MD amlodipine 5 mg PO DAILY atorvastatin 40 mg PO DAILY cyclobenzaprine 10 mg PO TID gabapentin 600 mg PO TID glipizide 5 mg PO DAILY lisinopril 10 mg PO DAILY metformin 1,000 mg PO BID metoprolol succinate ER 50 mg PO DAILY naproxen 500 mg PO BID prazosin 1 mg See Protocol PO BEDTIME 30 days sildenafil (Viagra) 100 mg PO DAILY PRN sitagliptin phosphate (Januvia) 1 tab PO DAILY tadalafil (Cialis) 20 mg PO DAILY PRN tizanidine 4 mg PO Q8H PRN trazodone 100 mg PO BEDTIME PRN 30 days venlafaxine ER 300 mg PO DAILY HPI Comments Details: Gonzales is here for consultation regarding SVT. He states that over the last year or so, he gets palpitations. Has happened about 4 times so far. He has been diagnosed with SVT but unfortunately we do not have any strips or EKGs to confirm this. Per patient as well as who is an RN and other notes, it appears that probably he did have SVT -these episodes have been addressed with vagal maneuvers as well as adenosine at different times. Additionally, his who is an RN has increased the beta-izzy dose. After that, somewhat controlled. Many comorbidities. He also drinks beer daily. Unclear how much that plays a role. During the time he gets these palpitations, he also gets some sensations the throat. A discomfort in the chest. Unclear if it is all just SVT or if additionally there is anginal component. At other times, he feels completely normal. Fairly active without any limitations. [facility] Medical History (Updated 05/24/24 @ 15:26 by Bimal Eastman MD) SVT (supraventricular tachycardia) HLD (hyperlipidemia) HTN (hypertension) Diabetes Back pain Asthma Family History (Updated 05/24/24 @ 15:00 by Susi Holley CMA) Mother Afib Heart attack Social History Household Members: None Housing: House Do you presently have visiting nurse or other home services: No Alcohol intake: current Alcohol intake frequency: 0-2 drinks per day Alcohol type: beer Comment: 1:1 sitter Patient Tobacco Use Status: Never used Tobacco Substance Use Type: Marijuana service: No Sexual orientation: Straight/Heterosexual Review of Systems Const Denies chills, Denies daytime sleepiness, Denies fatigue, Denies fever(s), Denies poor appetite, Denies snoring, Denies stops breathing during sleep, Denies weakness, Denies weight gain and Denies weight loss Eyes Denies loss of vision ENT Denies dizziness and Denies hearing loss Card Denies chest pain, Denies irregular heart rhythm, Denies claudication, Denies leg edema, Denies lightheadedness, Denies palpitations, Denies dyspnea on exertion and Denies orthopnea Resp Denies cough, Denies excessive phlegm production, Denies dyspnea on exertion, Denies snoring and Denies wheezing GI Denies abdominal pain, Denies hematochezia, Denies change in bowel habits, Denies nausea and Denies vomiting Denies dysuria and Denies urinary frequency Musc Denies arthralgias, Denies muscle weakness, Denies numbness and Denies other Skin/Breast Denies nail changes and Denies rash Neuro Denies Abnormal speech present, Denies dizziness, Denies loss of vision, Denies memory loss, Denies numbness and Denies weakness Psych Denies depression and Denies memory loss Endo Denies fatigue and Denies palpitations Sergio/Lymph Denies easy bruising Aller/Immun Denies wheezing Physical Exam Vital Signs: Last Vital Signs Pulse 52 05/24/24 14:54 BP 120/60 05/24/24 14:54 BMI result Body Mass Index 37.5 Const General: comfortable and no acute distress Orientation/consciousness: patient oriented x3 HEENT Other: Unremarkable Head: Yes normal to inspection Neck Neck: Yes normal visual inspection Chest Chest palpation & inspection: normal inspection of the chest Resp Auscultation: clear to auscultation bilaterally Cardio Palpation: normal PMI Heart sounds: S1 normal heart sound present, S2 normal heart sound present, no gallops, no murmurs and no rubs GI Palpation (GI): Soft to palpation Back/Spine/Pelvis Other: unremarkable Skin General skin exam: no rashes or lesions noted Neuro General: patient oriented x3 Speech: No Abnormal speech present Extrem General: Yes normal to inspection Psych Mental Status: mental status grossly normal Assessment & Plan Assessment & Plan (1) SVT (supraventricular tachycardia): Code(s): I47.10 - Supraventricular tachycardia, unspecified Category: Medical Plan In the 12 lead EKG, underlying rhythm is sinus at 75/Min; no significant ST-T changes and otherwise unremarkable. Normal UT and corrected QT. Available high sensitivity troponins are normal. Per ER note, SVT with heart rate as much as 200 but not captured on the EKG. Has resolved with Valsalva as well as adenosine. Overall, it seems like he might be having recurrent SVT. He is currently on beta-blockers and the dose has already been increased by his who is an RN. If he still gets any further SVT episodes, we can go up on the dose even higher and cut back on the amlodipine. Obtain a Holter monitor but not clear if he will be able to capture any episodes. Next option would be to refer to EP for EP study. With regard to chest discomfort, not clear if it is again all SVT or if he has independently angina. At other times, he does not feel any symptoms. Hence we will do a coronary CTA for further evaluation. Echocardiogram for cardiac function. Will follow-up after the testing is completed. Orders: Orders ECG 30 day event monitor Today Bimal Eastman MD I47.10 - Supraventricular tachycardia, unspecified CA echo transthoracic complete Today Bimal Eastman MD I47.10 - Supraventricular tachycardia, unspecified CT Cardiac Coronary Angio Today Bimal Eastman MD I25.10 - Atherosclerotic heart disease of [place] coronary artery without angina pectoris, I47.10 - Supraventricular tachycardia, unspecified Basic Metabolic Panel Today Bimal Eastman MD I47.10 - Supraventricular tachycardia, unspecified Medications: Changed From venlafaxine ER take 150mg daily for 1 week and then take 225mg daily 150 mg PO DAILY 7 days 7 tabs 0RF To venlafaxine ER take 150mg daily for 1 week and then take 225mg daily 300 mg PO DAILY Rene Shelly, MD Discontinued venlafaxine ER START 225mg AFTER complete 7 days of 150mg daily Discontinued Reason: Patient no longer taking 225 mg PO DAILY 30 days 30 tabs 0RF Coding Level of Care Code New Pt Level 4 (37434) Diagnoses SVT (supraventricular tachycardia) I47.10
[2024-05-24 14:54] VITALS: BP 120/60; PULSE 52; BMI 37.5
== END 2024-05-24 15:46 | disposition home or self-care (01) ==
PROVIDERS: PCP Internal Medicine; Visit Provider Internal Medicine
DX: I47.10 Supraventricular tachycardia, unspecified (principal)
CPT/HCPCS: 99214

== ENCOUNTER → 2024-05-24 14:21 | Outpatient (BNVA) | payer MEDICARE, MEDICAID, SELFPAY | PROVIDERS: PCP Internal Medicine; Visit Provider Internal Medicine | DX: I47.10 Supraventricular tachycardia, unspecified (principal); I25.10 Atherosclerotic heart disease of native coronary artery without angina pectoris; R00.2 Palpitations | CPT/HCPCS: 99212 ==

== ENCOUNTER → 2024-07-14 14:09 | Outpatient (REF) | payer MEDICARE, MEDICAID, SELFPAY ==
--- NOTE | 2024-07-14 14:13 | HM_ITS ---
* Total procedure length 30 days. Wear time 25 days. * Underlying rhythm is sinus with an average rate of 78/Min. * Rare supraventricular ectopy. * Brief episodes of supraventricular versus atrial tachycardia. Nothing sustained. * Rare ventricular ectopy. One episode of wide complex rhythm at 120/Min at 12:29pm. * No significant pauses or high-grade AV blocks. MTDD
--- NOTE | 2024-07-14 14:13 | CA_ITS ---
Transthoracic Echocardiogram Patient (Last, First, Middle): Gonzales Cedillo J Gender: Male Date of : 1965 Age: 59 Procedure Date: 07/14/2024 Procedure Type: Transthoracic Echocardiogram Location: OP Height: 177. cm Weight: 117.94 kg BSA: 2.33 m2 Heart Rate: 98 bpm BP: 130 / 80 mmHg Economic Development Director: GARDEN[place] Referring MD: Bimal Eastman MD Symptoms: I47.10 - Supraventricular tachycardia, unspecified Study Quality: Adequate w/Contrast ECG Rhythm: Sinus Conclusions: - The left ventricular systolic function is normal. The visually estimated ejection fraction is between 60-65%. - No obvious valvular pathology seen on this study. Findings Procedure Information Contrast agent, definity, is being given per protocol without apparent complications. Left Ventricle Normal left ventricular cavity size. There is mildly increased left ventricular wall thickness. The left ventricular systolic function is normal. The visually estimated ejection fraction is between 60-65%. There is no evidence of regional wall motion abnormalities. Evidence suggests grade I (mild) diastolic dysfunction. Right Ventricle Normal right ventricular cavity size and systolic function. Atria Both atria are normal in size. Aortic Valve There is a normal trileaflet aortic valve. There is mild calcification of the aortic valve. There is no aortic valve stenosis. There is no aortic valve regurgitation. Mitral Valve There is mild mitral annular calcification. There is no mitral valve regurgitation. There is no mitral valve stenosis. Pulmonic Valve The pulmonic valve is likely normal. Tricuspid Valve There is trace tricuspid valve regurgitation. There is no evidence of pulmonary hypertension. Great Vessels The asc aorta is normal in size. Venous The inferior vena cava is normal in size and collapses greater than 50% with inspiration. Pericardium/Pleural There is no evidence of pericardial effusion. Prior Study Comparison No significant change compared to prior study dated: 08/10/2019. Recommendations, Care & Conclusions No obvious valvular pathology seen on this study. Measurements 2D Linear Measurements IVSd: 1.05 0.6-0.9/0.6-1.0 cm LVIDd: 5.10 3.9-5.3/4.2-5.9 cm LVIDd Index: 2.19 2.4-3.2/2.2-3.1 cm/m2 LVIDs: 3.07 2.0-3.6 cm LVPWd: 1.16 0.7-1.1 cm LA Diam: 3.30 2.7-3.8/3.0-4.0 cm LAIDs Index: 1.42 1.5-2.3 cm/m2 LV Mass: 268.29 67-162/88-224 g LV Mass Index: 115.14 43-95/49-115 g/m2 LVOT Diam: 1.90 3.0+(-)1.3 cm 2D Systolic Function EF 4C: 57.50 >55% EF 2C: 62.30 >55% EF BiP: 58.00 >55% Mitral Valve MV Pk E: 0.94 MV PK A: 1.10 MV Decel Time: 209.00 E/A: 0.90 E'Lateral: 7.94 E'Medial: 6.53 E/E' Med: 14.40 E/E' Lat: 11.90 PHT: 61.00 MVA PHT: 3.61 Decel Young: 4.50 Aortic Valve AoV Pk Javid: 1.66 AoV Mn Javid: 1.15 AoV VTI: 0.31 AoV Pk Grad: 11.00 Aov Mn Grad: 6.00 MONI Cont.VTI: 2.02 LVOT LVOT Pk Javid: 1.16 LVOT Mn Javid: 0.79 LVOT VTI: 0.22 LVOT Pk Grad: 5.00 LVOT Mn Grad: 3.00 LVOT Diam: 1.90 LVOT Area: 2.84 Diastolic Function MV Pk E: 0.94 MV Pk A: 1.10 E/A: 0.90 E'Medial: 6.53 E/E' Med: 14.40 E' Laterial: 7.94 E/E' Lat: 11.90 Right Ventricle TAPSE (mm): 23.90 TVS' Javid: 12.90 Tricuspid Valve TR Pk Javid: 2.43 TR Pk Grad: 24.00 RA Press: 3.00 RVSP: 27.00 Great Vessels Aorta Sinus of Valsalva: 3.20 2.0-3.5 cm Ao Asc: 3.30 2.1-3.4 cm Pulmonary Valve PV Pk Javid: 1.07 Peak PV Grad: 5.00 Updated in Other Vendor System with Status of Final Bimal Eastman MD electronically signed on 07/16/2024 10:27:26 AM with status of Final
== END ==
LOC: HO.CARD 14:09
PROVIDERS: PCP Internal Medicine; Visit Provider Internal Medicine
DX: I47.10 Supraventricular tachycardia, unspecified (principal)
CPT/HCPCS: 93270; 93306; Q9957

== ENCOUNTER → 2024-07-14 14:13 | Outpatient (BNV) | payer MEDICARE, MEDICAID, SELFPAY | PROVIDERS: PCP Internal Medicine; Visit Provider Internal Medicine | DX: I49.3 Ventricular premature depolarization (principal); I47.10 Supraventricular tachycardia, unspecified | CPT/HCPCS: 93272; 93306 ==

== ENCOUNTER 2024-10-18 10:41 | Inpatient (IN) | payer MEDICARE, MEDICAID, SELFPAY ==
--- NOTE | ~2024-10-18 | CT_ITS ---
EXAMINATION: CT ABDOMEN AND PELVIS WITH CONTRAST CLINICAL INFORMATION: Nausea/vomiting/diarrhea. Abdominal pain COMPARISON: Ultrasound abdomen 05/11/2015 TECHNIQUE: Multidetector volumetric images were obtained from the superior aspect of the liver through the pubic symphysis following administration 85 mL of Omnipaque 350 intravenous contrast. Sagittal and coronal reformatted images were obtained on the technologist's workstation. Oral contrast: No This CT examination was performed using dose optimization techniques as appropriate, variously including the following: *Automated exposure control *Adjustment of mA and/or kV according to patient size (this includes techniques or standardized protocols for targeted exams where dose is matched to indication/reason for exam; i.e. extremities or head) *Use of iterative reconstruction technique DLP: 1502 mGy-cm FINDINGS: LUNG BASES: The lung bases are clear. The heart size is normal. There is mild coronary artery calcifications present. LIVER, GALLBLADDER, AND BILIARY TREE: The liver is normal in size, shape, and attenuation. No focal hepatic lesion or biliary ductal dilatation is present. The gallbladder is unremarkable with no evidence of radiopaque gallstones, gallbladder wall thickening, or obvious pericholecystic inflammatory changes. PANCREAS: Unremarkable. SPLEEN: Unremarkable. ADRENAL GLANDS: Unremarkable. KIDNEYS AND URETERS: The kidneys are normal in size, shape, and attenuation. No hydronephrosis, hydroureter, or calculi seen. No perinephric stranding. BLADDER: The bladder is nondistended. GASTROINTESTINAL TRACT: There is scattered stool gas and hourglass in colon without distention or diverticulitis. There is a diffuse mural thickening involving a long segment of distal ileum extending to the a.c. junction likely enteritis. There is mild haziness throughout the right mass centrally with small amount of free fluid. The proximal small bowel loops are normal caliber. There is no distention. The stomach is normal. No free air seen. ABDOMINAL WALL: No significant hernia is appreciated. LYMPH NODES: Normal. VASCULAR: Unremarkable. PELVIC VISCERA: Unremarkable. OSSEOUS STRUCTURES: There is L3-4, L4-fusion with disc prostheses and posterior hardware. Wide laminectomy L5 and L4 vertebra is noted. CT/CT abdomen pelvis w IV con IMPRESSION: Long segment of distal ileal mural thickening and mild fat stranding in the right lower quadrant mass centrally with minimal fluid. These findings are suggestive of inflammatory or infectious etiology of distal ileum. No abscess, pneumatosis or proximal bowel obstruction. Fleischner guidelines were followed. Electronically signed by: Gregory Robert MD 10/18/2024 02:18 PM CLAUDINE
--- NOTE | ~2024-10-18 | CT_ITS ---
EXAMINATION: CT ABDOMEN AND PELVIS WITH CONTRAST CLINICAL INFORMATION: Severe abdominal pain COMPARISON: None available. TECHNIQUE: Multidetector volumetric images were obtained from the superior aspect of the liver through the pubic symphysis following administration 85 mL of Omnipaque 350 intravenous contrast. Sagittal and coronal reformatted images were obtained on the technologist's workstation. Oral contrast: No This CT examination was performed using dose optimization techniques as appropriate, variously including the following: *Automated exposure control *Adjustment of mA and/or kV according to patient size (this includes techniques or standardized protocols for targeted exams where dose is matched to indication/reason for exam; i.e. extremities or head) *Use of iterative reconstruction technique DLP 785 FINDINGS: LUNG BASES: The visualized lung bases are unremarkable. LIVER, GALLBLADDER, AND BILIARY TREE: The liver is normal in size, shape, and diffusely hypoattenuated. No focal hepatic lesion or biliary ductal dilatation is present. The gallbladder is unremarkable with no evidence of radiopaque gallstones, gallbladder wall thickening, or obvious pericholecystic inflammatory changes. PANCREAS: Unremarkable. SPLEEN: Unremarkable. ADRENAL GLANDS: Unremarkable. KIDNEYS AND URETERS: The kidneys are normal in size, shape, and attenuation. No hydronephrosis, hydroureter, or calculi seen. No perinephric stranding. BLADDER: Unremarkable. GASTROINTESTINAL TRACT: Previously visualized diffuse mural thickening along segment of the ileum has significantly improved. Rest of the small bowel loops are normal. There is scattered stool and diverticuli in the right colon. Appendix is normal caliber. The stomach is nondistended. ABDOMINAL WALL: No significant hernia is appreciated. LYMPH NODES: Normal. VASCULAR: Unremarkable. PELVIC VISCERA: Unremarkable. OSSEOUS STRUCTURES: There is L3-4, L4-fusion with disc prosthesis and posterior hardware which is stable CT/CT abdomen pelvis w IV con IMPRESSION: Interval moderate improvement in the mural thickening involving distal ileal segment. Mild constipation. Mild fatty infiltration of liver. Fleischner guidelines were followed. Electronically signed by: Gregory Robert MD 10/21/2024 01:21 PM EST
[2024-10-18 11:13] VITALS: BP 216/125; PULSE 104; RESP 20; TEMP 36.6; O2SAT 98; BMI 38.7
--- NOTE | 2024-10-18 11:14 | ED_ITS ---
HPI - General Adult General Chief complaint: Abdominal Pain Stated complaint: Diarrhea 3 days, abd pain Time Seen by Provider: 10/18/24 11:47 Source: patient Mode of arrival: ambulatory Limitations: no limitations History of Present Illness ED Provider: Di Pressley PA-C HPI narrative: Patient is a 59 year old assigned male at with a history of SVT, HTN, HLD, depression, DM, and alcohol use disorder presenting to the emergency department today with diarrhea, nausea, vomiting, and abdominal pain. Patient states that over the last 4 days he has had nausea, vomiting, abdominal pain, and diarrhea. Patient denies any dizziness, lightheadedness, fever, chills, blurry vision, double vision, loss of vision, chest pain, difficulty breathing, shortness of breath, back pain, night sweats, pain with urination, increased urinary frequency, increased urinary urgency, blood in his urine or stool, syncope or a near syncopal episode, recent trauma or falls, bowel incontinence, bladder incontinence, or any other complaints at this time. Onset (ago): day(s) (4) Relieving factors: none Exacerbating factors: none Associated symptoms: nausea/vomiting Treatments prior to arrival: none Related Data Home Medications ?Medication ?Instructions ?Recorded ?Confirmed amlodipine 5 mg tablet 5 mg PO DAILY 05/24/24 05/24/24 atorvastatin 40 mg tablet 40 mg PO DAILY 05/24/24 05/24/24 cyclobenzaprine 10 mg tablet 10 mg PO TID 05/24/24 05/24/24 gabapentin 300 mg capsule 600 mg PO TID 05/24/24 05/24/24 glipizide 5 mg tablet 5 mg PO DAILY 05/24/24 05/24/24 lisinopril 10 mg tablet 10 mg PO DAILY 05/24/24 05/24/24 naproxen 500 mg tablet 500 mg PO BID 05/24/24 05/24/24 tizanidine 4 mg capsule 4 mg PO Q8H PRN 05/24/24 05/24/24 venlafaxine 150 mg tablet,extended 300 mg PO DAILY 05/24/24 05/24/24 release 24 hr linagliptin 5 mg tablet (Tradjenta) 5 mg PO DAILY 10/18/24 metoprolol succinate 50 mg 50 mg PO DAILY 10/18/24 tablet,extended release 24 hr Previous Rx's ?Medication ?Instructions ?Recorded prazosin 1 mg capsule 1 mg PO BEDTIME 30 days #30 caps 11/04/21 Allergies Allergy/AdvReac Type Severity Reaction Status Date / Time No Known Allergies Allergy Verified 10/18/24 11:15 [No Known Allergies*] Review of Systems 2 Constitutional: Constitutional: Reports no additional constitutional complaints, Denies chills, Denies fever(s) and Denies night sweats Eyes: Eyes: Reports no additional eye complaints, Denies blurry vision, Denies change in vision, Denies diplopia, Denies eye discharge, Denies loss of vision and Denies eye pain ENT: Denies dizziness Cardiovascular: Cardiovascular: Reports no additional cardiovascular complaints, Denies chest pain, Denies lightheadedness, Denies Loss of Consciousness and Denies dyspnea Respiratory: Respiratory: Reports no additional respiratory complaints and Denies dyspnea Gastrointestinal: Gastrointestinal: Reports no additional gastrointestinal complaints, Reports abdominal pain, Denies melena, Denies hematochezia, Reports change in bowel habits, Reports change in stool character, Reports diarrhea, Reports nausea and Reports vomiting Genitourinary: Genitourinary: Reports no additional male genitourinary complaints, Denies hematuria, Denies oliguria, Denies difficulty urinating, Denies dysuria, Denies urinary frequency, Denies urinary hesitancy, Denies urinary incontinence and Denies urinary urgency Musculoskeletal: Musculoskeletal: Reports no additional musculoskeletal complaints, Denies numbness and Denies tingling Neurologic: Denies dizziness, Denies loss of vision, Denies numbness and Denies tingling Psychiatric: Psychiatric: Reports no additional psychiatric complaints Endocrine: Endocrine: Reports no additional endocrine complaints Hematologic/Lymphatic: Hematologic/Lymphatic: Reports no additional hematologic/lymphatic complaints Allergic/Immunologic: Allergic/Immunologic: Reports no additional allergic/immunologic complaints [facility] Past Medical History Attestation statement: The following information was validated with the patient. Source: old records reviewed and nursing notes reviewed Medical History SVT (supraventricular tachycardia) HLD (hyperlipidemia) HTN (hypertension) Diabetes Back pain Asthma Family History Family History Mother Afib Heart attack Social History Social History Household Members: None Housing: House Do you presently have visiting nurse or other home services: No Alcohol intake: current Alcohol intake frequency: 0-2 drinks per day Alcohol type: beer Comment: 1:1 sitter Patient Tobacco Use Status: Never used Tobacco Substance Use Type: Marijuana Advance Directives: No Advance Directives Information Provided: Yes service: No Sexual orientation: Straight/Heterosexual Physical Exam ED Vital Signs: Vital Signs - 24 hr 10/18/24 11:13 10/18/24 14:27 Temperature 98 F Pulse Rate 104 H 99 Respiratory Rate 20 20 Blood Pressure 216/125 H 147/88 H Pulse Oximetry 98 98 Oxygen Delivery Method Room Air Room Air BMI result Body Mass Index 38.7 Const General: cooperative, no acute distress, alert and awake Nutritional Appearance: well nourished Orientation/consciousness: patient oriented x3 Limitations: no limitations HENMT Head: Yes normal to inspection and Yes atraumatic Ears: hearing grossly normal bilaterally and external ears normal General nose exam: Normal external nose present, no nasal discharge noted and no epistaxis Face and sinus: Yes normal facial exam, No abrasion and No laceration Mouth: Normal oral and palatal mucosa present, no drooling and no muffled voice Eyes General: appearance normal, both eyes and all related structures Periorbital: periorbital findings normal Eyelids: Yes eyelids normal Conjunctivae: conjunctivae normal Pupils: Equal, round and reactive pupils present EOM: EOMs intact bilaterally Neck Neck: Yes normal visual inspection, Yes full ROM and Yes no lymphadenopathy Chest Chest palpation & inspection: normal inspection of the chest Resp Effort & Inspection: normal respiratory effort and able to speak in complete sentences GI Inspection: Yes normal to inspection Palpation (GI): Soft to palpation, not firm, Tenderness to palpation present (GI) (diffuse), no guarding and not rigid Neuro General: patient oriented x3 and moves all extremities Cranial nerves: Yes Equal, round and reactive pupils present Cognition (Neuro): normal cognition Extrem General: Yes normal to inspection, Yes full ROM and Yes capillary refill normal Psych Appearance: grossly normal Mental Status: mental status grossly normal Affect: normal affect Attitude: cooperative Thought process: Normal thought process present Thought content: Normal thought content present Insight: Good insight present (Psych) Course Course Course Narrative: This is a rapid medical exam performed by Tavares Hassan NP: Additional HPI, ROS, PE not included below will be deferred to primary provider. Patient is a 59-year-old male pmhx of DM, HTN, HLD, SVT, alcohol use disorder, depression presenting with 3 days of severe lower abdominal pain and diarrhea. Nausea and vomiting with any PO intake. Denies fevers. Appears very uncomfortable. POC glucose was 380 this am, got it down to 250 with metformin. Did not take his metoprolol this am. (216/125 in triage). No prior abd surgeries. Plan: Labs, UA, will need CT Medications Administered Discontinued Medications Generic Name Dose Route Start Last Admin Trade Name Freq PRN Reason Stop Dose Admin Diazepam 2.5 mg 10/18/24 12:40 10/18/24 12:52 Diazepam 10 Mg/2 Ml Cartridge IVPUSH 10/18/24 12:41 2.5 mg STAT STA Administration Hydromorphone HCl 1 mg 10/18/24 11:48 10/18/24 11:51 Hydromorphone Hcl 1 Mg/Ml Syringe IVPUSH 10/18/24 11:49 1 mg ONCE ONE Administration Protocol Hydromorphone HCl 1 mg 10/18/24 13:24 10/18/24 13:35 Hydromorphone Hcl 1 Mg/Ml Syringe IVPUSH 10/18/24 13:25 1 mg ONCE ONE Administration Protocol Iohexol 100 ml 10/18/24 13:54 10/18/24 13:56 Iohexol 350 Mg/Ml 100 Ml Infus..Btl IV 10/18/24 13:55 85 ml ONCE ONE Administration Ketorolac Tromethamine 15 mg 10/18/24 14:33 10/18/24 14:40 Ketorolac Tromethamine 15 Mg/Ml Vial IVPUSH 10/18/24 14:34 15 mg ONCE ONE Administration Ondansetron HCl 4 mg 10/18/24 11:48 10/18/24 11:51 Ondansetron Hcl 4 Mg/2 Ml Vial IVPUSH 10/18/24 11:49 4 mg ONCE ONE Administration Pantoprazole Sodium 40 mg 10/18/24 12:40 10/18/24 12:52 Pantoprazole Sodium 40 Mg/10 Ml Vial IVPUSH 10/18/24 12:41 40 mg ONCE ONE Administration Medical Decision Making Medical Decision Making MDM Narrative: Patient is a 59 year old assigned male at with a history of SVT, HTN, HLD, depression, DM, and alcohol use disorder presenting to the emergency department today with diarrhea, nausea, vomiting, and abdominal pain. Patient's physical exam was as noted in the physical exam portion of this note. Patient's blood work showed mildly elevated LFTs but were otherwise unremarkable. Patient's EKG showed sinus tachycardia but was otherwise unremarkable. Patient's CT abd/pelvis showed a long segment of distal ileal mural thickening and mild fat stranding in the right lower quadrant. I explained my physical exam findings as well as all test results to the patient. I answered all questions asked by the patient. Patient received multiple doses of IV pain medication however, the pain persisted. I consulted with the surgical team who agreed with the CT read and stated they'd examine the patient. Given the patient's intractable pain, I spoke with the hospitalist team who agreed to admission. Patient verbalized agreement and understanding with this treatment plan and admission. Differential Diagnosis Differential Diagnoses: The differential diagnosis associated with the presentation includes Enteritis Gastroenteritis Appendicitis Abdominal pain Perforated bowel Diverticulitis Admission/Observation Consideration of admission/observation: Escalation of care including admission/observation considered Patient admitted as noted in the MDM Rationale portion of this note. Consult Healthcare Provider Management of the patient was discussed with: Hospitalist (spoke to the hospitalist who agreed to admission as noted in the MDM Rationale portion of this note.) and Child And Adolescent Psychologist (spoke to the general surgery team as noted in the MDM Rationale portion of this note.) Lab Data [facility] Lab Attestation statement: I reviewed the patient's lab results. My interpretation of these results are in the MDM Rationale portion of this note. 10/18/24 11:32 10/18/24 11:32 Labs: Lab Results 10/18/24 10/18/24 Range/Units 11:32 11:39 WBC 6.6 (4.8-10.8) X10*3/uL RBC 4.92 (4.60-5.80) X10*6/uL Hgb 16.7 (14.0-18.0) g/dl Hct 45.4 (42.0-52.0) % MCV 92.3 (80.0-98.0) fL MCH 33.9 H (27.0-33.0) pg MCHC 36.8 H (31.0-36.0) g/dl RDW 12.7 (11.0-16.0) % Plt Count 187 D (160-400) X10*3/uL MPV 10.5 (9.4-12.4) fL Immature Gran % (Auto) 0.3 (0.0-0.4) % Neut % (Auto) 68.4 (45-73) % Lymph % (Auto) 21.6 (20-40) % [place] % (Auto) 7.8 (2-11) % Eos % (Auto) 1.4 (0-4) % Baso % (Auto) 0.5 (0-2) % Lymph # (Auto) 1.4 (1.2-4.9) X10*3/uL [place] # (Auto) 0.5 (0.1-1.2) X10*3/uL Eos # (Auto) 0.1 (0.0-0.4) X10*3/uL Baso # (Auto) 0.0 (0.0-0.2) X10*3/uL Abs Immat Gran (auto) 0.02 (0.00-0.03) X10*3/uL Absolute Neuts (auto) 4.5 (2.0-8.3) x10*3/uL Absolute Nucleated RBC 0.000 (0.0-0.012) X10*3/uL Nucleated RBC % (auto) 0.0 (0.0-0.2) /100WBC PT 12.9 H (10.9-12.4) SEC INR 1.1 (0.9-1.1) VBG pH 7.55 H (7.32-7.43) VBG pCO2 24 mmHg VBG pO2 41 mmHg VBG HCO3 21 L (22-26) mmol/L VBG O2 Saturation 73.0 % VBG Base Excess 0.8 mmol/L Sodium 134 L (135-145) mmol/L Potassium 3.9 (3.3-5.1) mmol/L Chloride 100 (96-108) mmol/L Carbon Dioxide 21 L (22-29) mmol/L Anion Gap 17 (12-20) BUN 9 (9-16) mg/dL Creatinine 1.10 (0.5-1.4) mg/dL Estim Creat Clear Calc 93.7 Estimated GFR > 60 Random Glucose 318 H (60-115) mg/dL Calcium 9.4 (8.4-10.2) mg/dL Magnesium 2.0 (1.6-2.6) mg/dL Total Bilirubin 1.4 H (0.0-1.0) mg/dL AST 117 H (5-37) U/L ALT 107 H (0-40) U/L Alkaline Phosphatase 77 (39-117) U/L Troponin I High Sens 11.5 D (<3.5-35.0) ng/L Total Protein 7.7 (6.5-8.0) g/dL Albumin 4.4 (3.5-5.0) g/dL Lipase 32 (8-78) U/L Beta-Hydroxybutyrate 0.75 H (0.02-0.27) mmol/L Ethyl Alcohol < 10 mg/dL Independent Interpretation I performed an independent interpretation of an: EKG and CT Scan Interpretation: My interpretation is in agreement with the radiologist's impression of this imaging study. L Report Number: [id number]: Total DLP = 1502.00 mGy-cm EXAMINATION: CT ABDOMEN AND PELVIS WITH CONTRAST CLINICAL INFORMATION: Nausea/vomiting/diarrhea. Abdominal pain COMPARISON: Ultrasound abdomen 05/11/2015 TECHNIQUE: Multidetector volumetric images were obtained from the superior aspect of the liver through the pubic symphysis following administration 85 mL of Omnipaque 350 intravenous contrast. Sagittal and coronal reformatted images were obtained on the technologist's workstation. Oral contrast: No This CT examination was performed using dose optimization techniques as appropriate, variously including the following: *Automated exposure control *Adjustment of mA and/or kV according to patient size (this includes techniques or standardized protocols for targeted exams where dose is matched to indication/reason for exam; i.e. extremities or head) *Use of iterative reconstruction technique DLP: 1502 mGy-cm FINDINGS: LUNG BASES: The lung bases are clear. The heart size is normal. There is mild coronary artery calcifications present. LIVER, GALLBLADDER, AND BILIARY TREE: The liver is normal in size, shape, and attenuation. No focal hepatic lesion or biliary ductal dilatation is present. The gallbladder is unremarkable with no evidence of radiopaque gallstones, gallbladder wall thickening, or obvious pericholecystic inflammatory changes. PANCREAS: Unremarkable. SPLEEN: Unremarkable. ADRENAL GLANDS: Unremarkable. KIDNEYS AND URETERS: The kidneys are normal in size, shape, and attenuation. No hydronephrosis, hydroureter, or calculi seen. No perinephric stranding. BLADDER: The bladder is nondistended. GASTROINTESTINAL TRACT: There is scattered stool gas and hourglass in colon without distention or diverticulitis. There is a diffuse mural thickening involving a long segment of distal ileum extending to the a.c. junction likely enteritis. There is mild haziness throughout the right mass centrally with small amount of free fluid. The proximal small bowel loops are normal caliber. There is no distention. The stomach is normal. No free air seen. ABDOMINAL WALL: No significant hernia is appreciated. LYMPH NODES: Normal. VASCULAR: Unremarkable. PELVIC VISCERA: Unremarkable. OSSEOUS STRUCTURES: There is L3-4, L4-fusion with disc prostheses and posterior hardware. Wide laminectomy L5 and L4 vertebra is noted. CT/CT abdomen pelvis w IV con IMPRESSION: Long segment of distal ileal mural thickening and mild fat stranding in the right lower quadrant mass centrally with minimal fluid. These findings are suggestive of inflammatory or infectious etiology of distal ileum. No abscess, pneumatosis or proximal bowel obstruction. Fleischner guidelines were followed. Electronically signed by: Gregory Robert MD 10/18/2024 02:18 PM [facility] Dictated By: Gregory Robert MD Signed By: Electronically signed by Gregory Robert MD 10/18/24 1418 Vent. Rate: 101 BPM Atrial Rate: 101 BPM P-R Int: 162 ms QRS Dur: 076 ms QT Int: 348 ms P-R-T Axes: 036 -35 041 degrees QTc Int: 451 ms Sinus tachycardia Left axis deviation Nonspecific ST and T wave abnormality When compared with ECG of 28-FEB-2024 16:22, No significant change was found Referred By: Di Pressley Electronically Signed By:JAMAAL CHAVES MD Dictated By: Jamaal Chaves MD Signed By: Electronically signed by Jamaal Chaves MD 10/18/24 1230 Radiology Impression Discussion of test interpretation with radiology: I have reviewed the radiologist's reading. Chronic Conditions Patient?s care impacted by: Diabetes Discharge Plan Discharge Clinical Impression: Intractable abdominal pain, Enteritis Patient Disposition: Admitted As Inpatient
[2024-10-18 11:37] LABS: MANUAL DIFF FLAG NO
[2024-10-18 11:40] LABS: Basophils Percent Auto 0.5 % (0-2); Eosinophils Absolute Auto 0.1 X10*3/uL (0.0-0.4); Eosinophils Percent Auto 1.4 % (0-4); Hematocrit 45.4 % (42.0-52.0); Hemoglobin 16.7 g/dl (14.0-18.0); Imm Gran Abs Auto 0.02 X10*3/uL (0.00-0.03); Imm Gran Pct Auto 0.3 % (0.0-0.4); Lymphocytes Absolute Auto 1.4 X10*3/uL (1.2-4.9); Lymphocytes Percent Auto 21.6 % (20-40); Mean Corpuscular HGB Conc 36.8 g/dl (31.0-36.0); Mean Corpuscular Hemoglobin 33.9 pg (27.0-33.0); Mean Corpuscular Volume 92.3 fL (80.0-98.0); Mean Platelet Volume 10.5 fL (9.4-12.4); Monocytes Absolute Auto 0.5 X10*3/uL (0.1-1.2); Monocytes Percent Auto 7.8 % (2-11); Neutrophils Absolute Auto 4.5 x10*3/uL (2.0-8.3); Neutrophils Percent Auto 68.4 % (45-73); Platelet Count 187 X10*3/uL (160-400); Red Blood Count 4.92 X10*6/uL (4.60-5.80); Red Cell Distribution Width 12.7 % (11.0-16.0); White Blood Count 6.6 X10*3/uL (4.8-10.8)
[2024-10-18 11:43] LABS: VBG Base Excess 0.8 mmol/L; VBG HCO3 21 mmol/L (22-26); VBG pCO2 24 mmHg; VBG pH 7.55 (7.32-7.43); VBG pO2 41 mmHg
[2024-10-18 11:43] LABS: Venous Blood Gas Refer to POC result
[2024-10-18 11:44] LABS: INTERNATIONAL NORM RATIO 1.1 (0.9-1.1); Prothrombin Time 12.9 SEC (10.9-12.4)
[2024-10-18] MEDS: ondansetron HCL 4 MG/2 ML VIAL IVPUSH (11:51)
[2024-10-18] MEDS: HYDROmorphone HCl 1 MG/ML SYRINGE IVPUSH ×3 (11:51→20:36)
--- NOTE | 2024-10-18 11:52 | ECG_ITS ---
Test Reason : N/V ABD PAIN, HX SVT Blood Pressure : / mmHG Vent. Rate : 101 BPM Atrial Rate : 101 BPM P-R Int : 162 ms QRS Dur : 076 ms QT Int : 348 ms P-R-T Axes : 036 -35 041 degrees QTc Int : 451 ms Sinus tachycardia Left axis deviation Nonspecific ST and T wave abnormality Abnormal ECG When compared with ECG of 28-FEB-2024 16:22, No significant change was found Referred By: Di Pressley Electronically Signed By:KYAW CHAVES MD
[2024-10-18 11:55] LABS: Beta-Hydroxybutyrate 0.75 mmol/L (0.02-0.27)
[2024-10-18 11:58] LABS: Alanine Aminotransferase 107 U/L (0-40); Albumin Level 4.4 g/dL (3.5-5.0); Alkaline Phosphatase 77 U/L (39-117); Anion Gap 17 (12-20); Aspartate Amino Transferase 117 U/L (5-37); Bilirubin Total 1.4 mg/dL (0.0-1.0); Blood Urea Nitrogen 9 mg/dL (9-16); Calcium 9.4 mg/dL (8.4-10.2); Carbon Dioxide 21 mmol/L (22-29); Chloride 100 mmol/L (96-108); Creatinine Clr Calc Pharmacy 93.7; Estimated Glomerular Filt Rate > 60; Glucose Random 318 mg/dL (60-115); Lipase 32 U/L (8-78); Potassium 3.9 mmol/L (3.3-5.1); Sodium 134 mmol/L (135-145); Total Protein 7.7 g/dL (6.5-8.0)
[2024-10-18 12:02] LABS: Ethanol < 10 mg/dL
[2024-10-18] MEDS: diazePAM 10 MG/2 ML CARTRIDGE 2.5 MG IVPUSH (12:52)
[2024-10-18] MEDS: Pantoprazole Sodium 40 MG/10 ML VIAL IVPUSH (12:52)
[2024-10-18 13:19] LABS: Troponin-I High Sensitivity 11.5 ng/L (<3.5-35.0)
[2024-10-18] MEDS: iohexoL 350 MG/ML 100 ML INFUS..BTL IV (13:56)
[2024-10-18 14:27] VITALS: BP 147/88; PULSE 99; RESP 20; O2SAT 98
[2024-10-18] MEDS: Ketorolac Tromethamine 15 MG/ML VIAL IVPUSH (14:40)
--- NOTE | 2024-10-18 15:38 | P.HPHOSP_ITS ---
History of Present Illness Date of Service: 10/18/24 Chief Complaint: abdominal pain The patient is a 59-year-old male with a past medical history of hypertension, diabetes, hyperlipidemia, heavy alcohol use who presents to the emergency room with a 4 day history of severe abdominal pain and decreased oral intake. The patient reports that his symptoms began about 4 days ago, a day after he had consumed clam chowder. He reports that initially he had diarrhea, multiple times a day with some nausea. The diarrhea has since resolved but now he has severe abdominal pain in the lower quadrants as well as the right side. He reports vomiting with any oral intake. He denies any bleeding. He denies any fevers. No sick contacts In the emergency room the patient was treated with IV antiemetics, multiple doses of IV analgesics and underwent workup which included a CT scan which shows inflammatory changes in the right side and a long segment of the distal ileum with mural thickening consistent with inflammatory or infectious etiology. Given his ongoing pain, the patient will be admitted for further workup and treatment. Review of Systems 2 Review of Systems: Negative except HPI/interval history. [facility] Medical History SVT (supraventricular tachycardia) HLD (hyperlipidemia) HTN (hypertension) Diabetes Back pain Asthma Family History Mother Afib Heart attack Social History Household Members: None Housing: House Do you presently have visiting nurse or other home services: No Alcohol intake: current Alcohol intake frequency: 0-2 drinks per day Alcohol type: beer Comment: 1:1 sitter Patient Tobacco Use Status: Never used Tobacco Substance Use Type: Marijuana Advance Directives: No Advance Directives Information Provided: Yes service: No Sexual orientation: Straight/Heterosexual Meds Allergies Allergy/AdvReac Type Severity Reaction Status Date / Time No Known Allergies Allergy Verified 10/18/24 11:15 [No Known Allergies*] Home Medications ?Medication ?Instructions ?Recorded ?Confirmed ?Last Taken ?Type amlodipine 5 mg tablet 5 mg PO DAILY 05/24/24 05/24/24 Unknown History atorvastatin 40 mg tablet 40 mg PO DAILY 05/24/24 05/24/24 Unknown History cyclobenzaprine 10 mg tablet 10 mg PO TID 05/24/24 05/24/24 Unknown History gabapentin 300 mg capsule 600 mg PO TID 05/24/24 05/24/24 Unknown History glipizide 5 mg tablet 5 mg PO DAILY 05/24/24 05/24/24 Unknown History lisinopril 10 mg tablet 10 mg PO DAILY 05/24/24 05/24/24 Unknown History naproxen 500 mg tablet 500 mg PO BID 05/24/24 05/24/24 Unknown History tizanidine 4 mg capsule 4 mg PO Q8H PRN 05/24/24 05/24/24 Unknown History venlafaxine 150 mg tablet,extended 300 mg PO DAILY 05/24/24 05/24/24 Unknown History release 24 hr linagliptin 5 mg tablet (Tradjenta) 5 mg PO DAILY 10/18/24 Unknown History metoprolol succinate 50 mg 50 mg PO DAILY 10/18/24 Unknown History tablet,extended release 24 hr Physical Exam 2 Vital Signs and Narrative: Vital Signs: Last Vital Signs Temp 98 F 10/18/24 11:13 Pulse 99 10/18/24 14:27 Resp 20 10/18/24 14:27 BP 147/88 H 10/18/24 14:27 Pulse Ox 98 10/18/24 14:27 O2 Del Method Room Air 10/18/24 14:27 BMI result Body Mass Index 38.7 Const: Other: Constitutional - Awake and Alert, No apparent distress Eyes - PERRLA, EOMI Cardiovascular - S1S2, RRR, No edema Respiratory - Normal lung expansion, Normal respiratory effort, No respiratory distress, CTA bilaterally Gastrointestinal - diffuse TTP, most pronouced in the lower quads + right side; +voluntary guarding - No CVA tenderness Extremities - no calf tenderness bilaterally, no swelling Musculoskeletal - Normal inspection, normal ROM Skin - Warm/Dry Neurological - Alert & oriented x3, No focal deficit Psychological - Appropriate affect Results Labs 10/18/24 11:32 10/18/24 11:32 Labs: Laboratory Results - last 24 hr 10/18/24 10/18/24 11:32 11:39 MCV 92.3 MCH 33.9 H MCHC 36.8 H RDW 12.7 Plt Count 187 D MPV 10.5 Immature Gran % (Auto) 0.3 Neut % (Auto) 68.4 Lymph % (Auto) 21.6 [place] % (Auto) 7.8 Eos % (Auto) 1.4 Baso % (Auto) 0.5 Lymph # (Auto) 1.4 [place] # (Auto) 0.5 Eos # (Auto) 0.1 Baso # (Auto) 0.0 Abs Immat Gran (auto) 0.02 Absolute Neuts (auto) 4.5 Absolute Nucleated RBC 0.000 Nucleated RBC % (auto) 0.0 PT 12.9 H INR 1.1 VBG pH 7.55 H VBG pCO2 24 VBG pO2 41 VBG HCO3 21 L VBG O2 Saturation 73.0 VBG Base Excess 0.8 Anion Gap 17 Estim Creat Clear Calc 93.7 Estimated GFR > 60 Random Glucose 318 H Calcium 9.4 Magnesium 2.0 Total Bilirubin 1.4 H AST 117 H ALT 107 H Alkaline Phosphatase 77 Troponin I High Sens 11.5 D Total Protein 7.7 Albumin 4.4 Lipase 32 Beta-Hydroxybutyrate 0.75 H Ethyl Alcohol < 10 Imaging Radiologist's Impressions: Impressions Abdomen/Pelvis CT 10/18/24 11:48 IMPRESSION: Long segment of distal ileal mural thickening and mild fat stranding in the right lower quadrant mass centrally with minimal fluid. These findings are suggestive of inflammatory or infectious etiology of distal ileum. No abscess, pneumatosis or proximal bowel obstruction. Fleischner guidelines were followed. Electronically signed by: Gregory Robert MD 10/18/2024 02:18 PM [facility] Assessment and Plan (1) Enteritis: Status: Acute (2) Intractable abdominal pain: Status: Acute Plan 59-year-old male with a medical history of hypertension, diabetes, hyperlipidemia and heavy alcohol use who presents with a 4 day history of abdominal pain which began the day after after consuming clam chowder. His CT imaging shows enteritis. He has been symptomatically treated for his pain but it persistent, hence will be admitted for further care and evaluation. 1. Intractable abdominal pain CT showing findings suggestive of enteritis Has received multiple doses of IV analgesics, we will continue with IV Dilaudid p.r.n. General surgery and gastroenterology consult Hold off on antibiotics at this time If he has diarrhea, we will send for stool studies IV fluids in the meantime 2. Elevated LFTs 2a. Heavy alcohol use Could be related to acute infection However, patient does endorse about 10-12 beers daily - last drink 4 days ago no signs of withdrawal at this time -- will monitor with CIWA 3. DM hold oral meds - use POC + sliding scale +ketones -- mildly elevated -- bicarb 21 and no gap - monitor closely 4. HTN resume home meds once med rec completed 5. Mood continue baseline meds 6. History of SVT continue beta-blockers Full Code DVT pptx - Lovenox Med Rec pending -- will continue baseline meds as appropriate once completed. Pt with severe abdominal pain and enteritis of unclear etiology + hyperglycemia/ketones + heavy alcohol use requiring close monitoring -- therefore expected to require hospitalization for at least 2 midnights for treatment and monitoring of response. Therefore, will be admitted as inpatient. Quality Stroke Does the patient have a stroke diagnosis?: No VTE Prior VTE?: No VTE Risk Level:: Medical - moderate - high VTE Device Contraindication: N/A - Device Ordered VTE Drug Contraindication: N/A - Med Ordered
--- NOTE | 2024-10-18 16:07 | P.CONGS_ITS ---
History of Present Illness Consult details Consult date: 10/18/24 Narrative: 59-year-old male with a history of diabetes, hypertension, alcohol abuse, depression, here in the ER because of abdominal pain. He describes this is mostly in the right lower quadrant of his abdomen. He says that this started maybe about 3-4 days ago. He said he has had concurrent loose stools, up to 20 times a day. He says his BMs are very watery throughout. He says that he has had no diarrhea today. However, he had persistent pain so he decided to come to the emergency room. He denies any nausea or vomiting He denies any fever or chills. He denies any obvious precipitating factor. He said no other family member in the house hold the same symptoms. He says he is up-to-date with his colonoscopies. Review of Systems 2 Constitutional: Constitutional: Denies chills and Denies fever(s) Cardiovascular: Cardiovascular: Denies chest pain, Denies dyspnea and Denies dyspnea on exertion Respiratory: Respiratory: Denies cough, Denies dyspnea and Denies dyspnea on exertion Gastrointestinal: Gastrointestinal: Denies hematochezia, Denies change in bowel habits and Reports diarrhea Genitourinary: Genitourinary: Denies hematuria and Denies difficulty urinating Musculoskeletal: Musculoskeletal: Denies back pain and Denies limited range of motion Neurologic: Denies focal weakness and Denies convulsions Psychiatric: Psychiatric: Denies depression and Denies mood swings PMFSH Past Medical History Medical History SVT (supraventricular tachycardia) HLD (hyperlipidemia) HTN (hypertension) Diabetes Back pain Asthma Family History Family History Mother Afib Heart attack Social History Social History Household Members: Spouse Housing: House Do you presently have visiting nurse or other home services: No Alcohol intake: current Alcohol intake frequency: 0-2 drinks per day Alcohol type: beer Comment: patient refuses alarms Patient Tobacco Use Status: Never used Tobacco Substance Use Type: Marijuana service: No Sexual orientation: Straight/Heterosexual Meds Allergies Allergy/AdvReac Type Severity Reaction Status Date / Time No Known Allergies Allergy Verified 10/18/24 11:15 [No Known Allergies*] Active Medications: Current Medications Acetaminophen (Acetaminophen 325 Mg Tablet) 650 mg PO Q6H PRN PRN Reason: Pain, Mild 1-3,fever,headache Calcium Carbonate (Calcium Carbonate 750 Mg Tab.Chew) 750 mg PO Q4H PRN PRN Reason: Heartburn Enoxaparin Sodium (Enoxaparin Sodium 40 Mg/0.4 Ml Syringe) 40 mg SUBCUT Q24H [facility] Hydromorphone HCl (Hydromorphone Hcl 1 Mg/Ml Syringe) 0.5 mg IVPUSH Q4H PRN; Protocol PRN Reason: Pain, Severe (Pain Scale 7-10) Lactated Ringer's (Lr) 1,000 mls @ 100 mls/hr IVCONT .Q10H [facility] Stop: 10/19/24 11:44 Insulin Human Lispro (Insulin Lispro 100 Unit/Ml 3 Ml Vial) 0 unit SUBCUT QIDACHS [facility]; Protocol Magnesium Hydroxide (Milk Of Magnesia 30 Ml Oral.Susp) 30 ml PO DAILY PRN PRN Reason: Constipation Melatonin (Melatonin 3 Mg Tablet) 6 mg PO BEDTIME PRN PRN Reason: Insomnia Metoprolol Succinate (Metoprolol Succinate Er 50 Mg Tab.Er.24h) 50 mg PO DAILY [facility]; Protocol Ondansetron HCl (Ondansetron Hcl 4 Mg/2 Ml Vial) 4 mg IVPUSH Q8H PRN PRN Reason: Nausea and Vomiting Sodium Chloride (0.9 % Sodium Chloride Flush 3 Ml Syringe) 3 [facility] Home Medications ?Medication ?Instructions ?Recorded ?Confirmed ?Last Taken ?Type atorvastatin 40 mg tablet 40 mg PO DAILY 05/24/24 10/18/24 10/17/24 History cyclobenzaprine 10 mg tablet 10 mg PO TID 05/24/24 10/18/24 10/17/24 History gabapentin 300 mg capsule 600 mg PO TID 05/24/24 10/18/24 10/17/24 History lisinopril 10 mg tablet 10 mg PO DAILY 05/24/24 10/18/24 10/17/24 History naproxen 500 mg tablet 500 mg PO BID 05/24/24 10/18/24 10/17/24 History tizanidine 4 mg capsule 4 mg PO Q8H PRN Muscle Spasm 05/24/24 10/18/24 10/17/24 History venlafaxine 150 mg tablet,extended 300 mg PO DAILY 05/24/24 10/18/24 10/17/24 History release 24 hr glipizide 5 mg tablet 10 mg PO BID 10/18/24 10/18/24 10/18/24 History linagliptin 5 mg tablet (Tradjenta) 5 mg PO DAILY 10/18/24 10/18/24 10/17/24 History metoprolol succinate 50 mg 50 mg PO DAILY 10/18/24 10/18/24 10/17/24 History tablet,extended release 24 hr Physical Exam 2 Vital Signs: Vital Signs: Last Vital Signs Temp 98 F 10/18/24 11:13 Pulse 99 10/18/24 14:27 Resp 20 10/18/24 14:27 BP 147/88 H 10/18/24 14:27 Pulse Ox 98 10/18/24 14:27 O2 Del Method Room Air 10/18/24 14:27 BMI result Body Mass Index 38.7 Const: Other: Appears overweight General: comfortable and no acute distress Orientation/consciousness: p atient oriented x3 Neck: Neck: Yes no lymphadenopathy Resp: Auscultation: clear to auscultation bilaterally Cardio: Rhythm: regular rhythm GI: Palpation (GI): Soft to palpation, nontender and Guarding due to palpation present (GI) (Has voluntary guarding on the right lower quadrant) Neuro: General: patient oriented x3 Results Labs 10/22/24 05:16 10/22/24 05:16 Labs: Abnormal lab results 10/18/24 10/18/24 Range/Units 11:32 11:39 MCH 33.9 H (27.0-33.0) pg MCHC 36.8 H (31.0-36.0) g/dl PT 12.9 H (10.9-12.4) SEC VBG pH 7.55 H (7.32-7.43) VBG HCO3 21 L (22-26) mmol/L Sodium 134 L (135-145) mmol/L Carbon Dioxide 21 L (22-29) mmol/L Random Glucose 318 H (60-115) mg/dL Total Bilirubin 1.4 H (0.0-1.0) mg/dL AST 117 H (5-37) U/L ALT 107 H (0-40) U/L Beta-Hydroxybutyrate 0.75 H (0.02-0.27) mmol/L Short CBC 10/18/24 Range/Units 11:32 WBC 6.6 (4.8-10.8) X10*3/uL Hgb 16.7 (14.0-18.0) g/dl Hct 45.4 (42.0-52.0) % Plt Count 187 D (160-400) X10*3/uL BMP 10/18/24 11:32 Sodium 134 L Potassium 3.9 Chloride 100 Carbon Dioxide 21 L BUN 9 Creatinine 1.10 Calcium 9.4 Liver Function 10/18/24 Range/Units 11:32 Total Bilirubin 1.4 H (0.0-1.0) mg/dL AST 117 H (5-37) U/L ALT 107 H (0-40) U/L Alkaline Phosphatase 77 (39-117) U/L Albumin 4.4 (3.5-5.0) g/dL All other labs normal. Imaging Abdomen CT scan report/results: report reviewed and image reviewed CT scan - pelvis: report reviewed and image reviewed Assessment and Plan (1) Enteritis: Status: Acute 59-year-old male with abdominal pain as described above for the past 3-4 days. This was accompanied by severe diarrhea. I have reviewed his CAT scan images and this does suggest findings consistent with enteritis, with note of a long segment of the distal small bowel that has significant wall thickening. There was no other obvious pathology that is identifiable at this time He does have significant tenderness on palpation. He does not have any leukocytosis. He is not toxic looking . He should be adequately hydrated as he has had about 3 days of severe diarrhea. He should be on bowel rest as well although he should be able to have some clear liquids. He can also be given some pain medications. I explained to him and his family the plan above. He will be followed by the surgical service. Currently, no surgical intervention is indicated. I have discussed the above with the hospitalist service as well as the ED. Procedures Date of Service Date of Service: 10/25/24
[2024-10-18 16:20] VITALS: BP 151/92; PULSE 77; RESP 16; TEMP 36.4; O2SAT 97
--- NOTE | 2024-10-18 16:46 | PHA.MEDREC ---
Addendum entered by Franki Hart RPh 10/18/24 17:31: med rec reviewed Original Note: Pharmacy Consult ? Medication Reconciliation Pharmacy has completed the medication reconciliation. Spoke to patient to confirm med list. Patient states he is no longer taking Amlodipine 5 mg. Patient states he took Glipizide 5 mg and a metformin because his sugar was high, however he doesn't take metformin daily.
[2024-10-18 16:51] VITALS: BP 151/92; PULSE 77; RESP 20
[2024-10-18] MEDS: Metoprolol Succinate ER 50 MG TAB.ER.24H PO (16:51)
[2024-10-18] MEDS: HYDROmorphone HCl 1 MG/ML SYRINGE 0.5 MG IVPUSH (16:51)
[2024-10-18] MEDS: Enoxaparin Sodium 40 MG/0.4 ML SYRINGE SUBCUT (16:52)
[2024-10-18] MEDS: Lactated Ringers 1,000 ML 100 ML IVCONT (16:53)
--- NOTE | 2024-10-18 17:12 | P.CNGI_ITS ---
History of Present Illness Data of Consult Service Date: 10/18/24 Requesting physician: Travis Amaya Primary Care Provider: Rajan Baer MD HPI Reason for consult: Enteritis 59 YM with history of SVT, HTN, HLD, depression, DM, and alcohol use disorder seen at [facility] on 10/18/24 with lower/RLQ abd pain, diarrhea, nausea and vomiting. Patient noted nausea, vomiting, abdominal pain, and diarrhea for the past 3-4 days. Pt describes the pain as 6-7/10 in intensity, stabbing in character without radiation. Pt notes pain has been getting progressively worse and increased to 10/10 in intesity today and comes in waves of severe pain. Pain can get worse after he eats or drinks anything (even water). Pt reports severe diarrhea with upto 20 watery and nonbloody BMs a day. Diarrhea subsided this am and pt denies having any BM since this morning, admits to passing gas a few times.. He notes he has not been eating for the past 2 days due to concern for vomiting and increased abd pain. Pt admits to taking antibiotics (amoxicillin) a month ago. Patient denies any dizziness, lightheadedness, fever, chills, blurry vision, double vision, loss of vision, chest pain, difficulty breathing, shortness of breath, back pain, night sweats, pain with urination. Pt reports having a colonoscopy 6 yrs ago in [place] and colon polyps were removed. Repeat colonoscopy was advised in 5 yrs and he is overdue. Pt denies a hx of snoring or sleep apnea He denies smoking and admits to drinking ETOH - few beers daily. Patient denies use of street drugs and admits to taking marijuana p.r.n. for back pain (denies recreational marijuana use) Patient denies known family history of IBD, colon polyps or GI malignancy 10/18/[address] SCAN SHOWED: Long segment of distal ileal mural thickening and mild fat stranding in the right lower quadrant mass centrally with minimal fluid. These findings are suggestive of inflammatory or infectious etiology of distal ileum. No abscess, pneumatosis or proximal bowel obstruction. Review of Systems 2 Constitutional: Constitutional: Denies chills and Denies fever(s) Cardiovascular: Cardiovascular: Denies chest pain, Denies dyspnea and Denies dyspnea on exertion Respiratory: Respiratory: Denies cough, Denies dyspnea and Denies dyspnea on exertion Gastrointestinal: Gastrointestinal: Reports abdominal pain, Denies hematochezia, Denies change in bowel habits and Reports diarrhea Genitourinary: Genitourinary: Denies hematuria and Denies difficulty urinating Musculoskeletal: Musculoskeletal: Denies back pain and Denies limited range of motion Neurologic: Denies focal weakness and Denies convulsions Psychiatric: Psychiatric: Denies depression and Denies mood swings [facility] Past Medical History Medical History SVT (supraventricular tachycardia) HLD (hyperlipidemia) HTN (hypertension) Diabetes Back pain Asthma Family History Family History Mother Afib Heart attack Social History Social History Household Members: None Housing: House Do you presently have visiting nurse or other home services: No Alcohol intake: current Alcohol intake frequency: 0-2 drinks per day Alcohol type: beer Comment: 1:1 sitter Patient Tobacco Use Status: Never used Tobacco Substance Use Type: Marijuana Advance Directives: No Advance Directives Information Provided: Yes Nutrition Risks: No Nutritional Risk service: No Sexual orientation: Straight/Heterosexual Meds Allergies Allergy/AdvReac Type Severity Reaction Status Date / Time No Known Allergies Allergy Verified 10/18/24 11:15 [No Known Allergies*] Active Medications: Current Medications Acetaminophen (Acetaminophen 325 Mg Tablet) 650 mg PO Q6H PRN PRN Reason: Pain, Mild 1-3,fever,headache Calcium Carbonate (Calcium Carbonate 750 Mg Tab.Chew) 750 mg PO Q4H PRN PRN Reason: Heartburn Enoxaparin Sodium (Enoxaparin Sodium 40 Mg/0.4 Ml Syringe) 40 mg SUBCUT Q24H [facility] Last Admin: 10/18/24 16:52 Dose: 40 mg Hydromorphone HCl (Hydromorphone Hcl 1 Mg/Ml Syringe) 0.5 mg IVPUSH Q4H PRN; Protocol PRN Reason: Pain, Severe (Pain Scale 7-10) Last Admin: 10/18/24 16:51 Dose: 0.5 mg Lactated Ringer's (Lr) 1,000 mls @ 100 mls/hr IVCONT .Q10H [facility] Stop: 10/19/24 11:44 Last Admin: 10/18/24 16:53 Dose: 100 mls/hr Insulin Human Lispro (Insulin Lispro 100 Unit/Ml 3 Ml Vial) 0 unit SUBCUT QIDACHS [facility]; Protocol Magnesium Hydroxide (Milk Of Magnesia 30 Ml Oral.Susp) 30 ml PO DAILY PRN PRN Reason: Constipation Melatonin (Melatonin 3 Mg Tablet) 6 mg PO BEDTIME PRN PRN Reason: Insomnia Metoprolol Succinate (Metoprolol Succinate Er 50 Mg Tab.Er.24h) 50 mg PO DAILY [facility]; Protocol Last Admin: 10/18/24 16:51 Dose: 50 mg Ondansetron HCl (Ondansetron Hcl 4 Mg/2 Ml Vial) 4 mg IVPUSH Q8H PRN PRN Reason: Nausea and Vomiting Sodium Chloride (0.9 % Sodium Chloride Flush 3 Ml Syringe) [facility] Home Medications ?Medication ?Instructions ?Recorded ?Confirmed ?Last Taken ?Type atorvastatin 40 mg tablet 40 mg PO DAILY 05/24/24 10/18/24 10/17/24 History cyclobenzaprine 10 mg tablet 10 mg PO TID 05/24/24 10/18/24 10/17/24 History gabapentin 300 mg capsule 600 mg PO TID 05/24/24 10/18/24 10/17/24 History lisinopril 10 mg tablet 10 mg PO DAILY 05/24/24 10/18/24 10/17/24 History naproxen 500 mg tablet 500 mg PO BID 05/24/24 10/18/24 10/17/24 History tizanidine 4 mg capsule 4 mg PO Q8H PRN Muscle Spasm 05/24/24 10/18/24 10/17/24 History venlafaxine 150 mg tablet,extended 300 mg PO DAILY 05/24/24 10/18/24 10/17/24 History release 24 hr glipizide 5 mg tablet 10 mg PO BID 10/18/24 10/18/24 10/18/24 History linagliptin 5 mg tablet (Tradjenta) 5 mg PO DAILY 10/18/24 10/18/24 10/17/24 History metoprolol succinate 50 mg 50 mg PO DAILY 10/18/24 10/18/24 10/17/24 History tablet,extended release 24 hr Physical Exam 2 Vital Signs: Vital Signs: Last Vital Signs Temp 97.6 F 10/18/24 16:20 Pulse 77 10/18/24 16:51 Resp 20 10/18/24 16:51 BP 151/92 H 10/18/24 16:51 Pulse Ox 97 10/18/24 16:20 O2 Del Method Room Air 10/18/24 16:20 BMI result Body Mass Index 38.7 Const: Other: Appears overweight General: other (appears in discomfort due to abdominal pain) Nutritional Appearance: obese Orientation/consciousness: patient oriented x3 Neck: Neck: Yes no lymphadenopathy Resp: Auscultation: clear to auscultation bilaterally Cardio: Rhythm: regular rhythm GI: Palpation (GI): Soft to palpation, nontender and Guarding due to palpation present (GI) (Has voluntary guarding on the right lower quadrant) Neuro: General: patient oriented x3 Results Labs 10/18/24 11:32 10/18/24 11:32 Labs: Short CBC 10/18/24 Range/Units 11:32 WBC 6.6 (4.8-10.8) X10*3/uL Hgb 16.7 (14.0-18.0) g/dl Hct 45.4 (42.0-52.0) % Plt Count 187 D (160-400) X10*3/uL BMP 10/18/24 11:32 Sodium 134 L Potassium 3.9 Chloride 100 Carbon Dioxide 21 L BUN 9 Creatinine 1.10 Calcium 9.4 Liver Function 10/18/24 Range/Units 11:32 Total Bilirubin 1.4 H (0.0-1.0) mg/dL AST 117 H (5-37) U/L ALT 107 H (0-40) U/L Alkaline Phosphatase 77 (39-117) U/L Albumin 4.4 (3.5-5.0) g/dL Assessment and Plan (1) Enteritis: Status: Acute (2) Intractable abdominal pain: Status: Acute Plan 59 YM with history of SVT, HTN, HLD, depression, DM, and alcohol use disorder admitted to [facility] on 10/18/24 with lower/RLQ abd pain, diarrhea, nausea and vomiting. Pt reports having a colonoscopy 6 yrs ago in [place] and colon polyps were removed. Abd CT scan showed a long segment of distal ileal mural thickening and mild fat stranding in the right lower quadrant mass centrally with minimal fluid - suggestive of inflammatory or infectious etiology. Pt's symptoms are likely due to an infectious etiology - enterocolitis due to Yersinia, Campylobacter, Shigella, entero invasive E coli, E histolytica or Clostridium difficile IBD/Crohn's disease is less likely given acute onset of symptoms RECOMMENDATIONS: 1. Agree with IV fluids and IV pain medications and antiemetics for control of nausea and vomiting 2. Check GI panel and stool for Campylobacter and Yersinia if pt has recurrent diarrhea 3. If symptoms do not improve, empiric antibiotic therapy with 2nd/3rd generation cephalosporin or fluoroquinolones can be initiated Procedures Date of Service Date of Service: 10/18/24
[2024-10-18 18:12] LABS: Glucose, Whole Blood 232 mg/dL (60-115)
[2024-10-18] MEDS: Insulin Lispro 100 UNIT/ML 3 ML VIAL SUBCUT ×2 (18:40→21:35)
--- NOTE | 2024-10-18 18:44 | PC.NURSE ---
This RN reached out to provider as pt pain is not controlled at this time. No new further orders at this time.
[2024-10-18 20:02] VITALS: BP 155/78; PULSE 68; RESP 16; TEMP 36.5; O2SAT 100
--- NOTE | 2024-10-18 21:17 | PC.NURSE ---
IV fluids not infusing on a pump d/t pump shortage. fluids have infused at this time. MD Escobedo aware, okayed fluids to restart at the next scheduled time of 0145 at 100mls/hr
[2024-10-18 21:18] VITALS: BP 188/98; PULSE 77; RESP 20; TEMP 36; O2SAT 97
[2024-10-18 21:27] LABS: Glucose, Whole Blood 256 mg/dL (60-115)
[2024-10-18] MEDS: 0.9 % Sodium Chloride Flush 3 ML SYRINGE IVFLUSH (21:30)
[2024-10-18 22:54] VITALS: BMI 38.7
[2024-10-19] MEDS: HYDROmorphone HCl 1 MG/ML SYRINGE IVPUSH ×5 (00:25→21:07)
[2024-10-19] MEDS: Lactated Ringers 1,000 ML 100 ML IVCONT (01:49)
[2024-10-19 03:31] VITALS: BP 176/80; PULSE 76; RESP 16; TEMP 36.6; O2SAT 97
[2024-10-19 06:52] LABS: Hematocrit 40.9 % (42.0-52.0); Hemoglobin 14.4 g/dl (14.0-18.0); Mean Corpuscular HGB Conc 35.2 g/dl (31.0-36.0); Mean Corpuscular Hemoglobin 33.6 pg (27.0-33.0); Mean Corpuscular Volume 95.3 fL (80.0-98.0); Mean Platelet Volume 10.5 fL (9.4-12.4); Platelet Count 134 X10*3/uL (160-400); Red Blood Count 4.29 X10*6/uL (4.60-5.80); White Blood Count 4.5 X10*3/uL (4.8-10.8)
[2024-10-19 07:00] LABS: Alanine Aminotransferase 99 U/L (0-40); Albumin Level 3.9 g/dL (3.5-5.0); Alkaline Phosphatase 67 U/L (39-117); Aspartate Amino Transferase 95 U/L (5-37); Bilirubin Total 1.2 mg/dL (0.0-1.0); Blood Urea Nitrogen 9 mg/dL (9-16); C Reactive Protein 1.44 mg/dL (< or = 0.50); Calcium 8.8 mg/dL (8.4-10.2); Creatinine Clr Calc Pharmacy 115.8; Estimated Glomerular Filt Rate > 60; Glucose Random 193 mg/dL (60-115); Total Protein 6.8 g/dL (6.5-8.0)
[2024-10-19 07:44] VITALS: BP 169/66; PULSE 64; RESP 20; TEMP 36; O2SAT 95
[2024-10-19 07:47] LABS: Anion Gap 14 (12-20); Carbon Dioxide 28 mmol/L (22-29); Chloride 101 mmol/L (96-108); Potassium 5.1 mmol/L (3.3-5.1); Sodium 138 mmol/L (135-145)
[2024-10-19 07:52] LABS: Glucose, Whole Blood 199 mg/dL (60-115)
[2024-10-19] MEDS: Insulin Lispro 100 UNIT/ML 3 ML VIAL SUBCUT ×3 (08:04→16:30)
[2024-10-19] MEDS: lisinopriL 10 MG TABLET PO (08:05)
[2024-10-19] MEDS: Metoprolol Succinate ER 50 MG TAB.ER.24H PO (08:05)
[2024-10-19] MEDS: Venlafaxine HCl ER 150 MG CAP.ER.24H 300 MG PO (08:05)
[2024-10-19] MEDS: 0.9 % Sodium Chloride Flush 3 ML SYRINGE IVFLUSH ×3 (08:06→21:08)
[2024-10-19] MEDS: Gabapentin 300 MG CAPSULE 600 MG PO ×3 (08:06→21:06)
--- NOTE | 2024-10-19 08:21 | P.PNGS_ITS ---
Subjective Subjective Date of Service: 10/19/24 Interval history: Patient with continued abdominal pain felt in the lower quadrants with occasional waves of increased sharp pain in the left lower quadrant. Reports having difficulty sleeping because of the pain. Physical Exam 2 Vital Signs: Vital Signs: Last Vital Signs Temp 96.8 F 10/19/24 07:44 Pulse 64 10/19/24 07:44 Resp 20 10/19/24 07:44 BP 169/66 H 10/19/24 07:44 Pulse Ox 95 10/19/24 07:44 O2 Del Method Room Air 10/19/24 07:44 BMI result Body Mass Index 38.7 Const: General: tired appearing Nutritional Appearance: well nourished O rientation/consciousness: patient oriented x3 Resp: Effort & Inspection: normal respiratory effort GI: Inspection: Yes distended Palpation (GI): Soft to palpation, Tenderness to palpation present (GI) in the LLQ and in the RLQ; with no rebound tenderness, no guarding and not rigid Skin: General skin exam: no rashes or lesions noted Neuro: General: patient oriented x3 Extrem: General: Yes no clubbing, cyanosis or edema Objective Data Active Medications Acetaminophen (Acetaminophen 325 Mg Tablet) 650 mg PO Q6H PRN PRN Reason: Pain, Mild 1-3,fever,headache Calcium Carbonate (Calcium Carbonate 750 Mg Tab.Chew) 750 mg PO Q4H PRN PRN Reason: Heartburn Enoxaparin Sodium (Enoxaparin Sodium 40 Mg/0.4 Ml Syringe) 40 mg SUBCUT Q24H [facility] Last Admin: 10/18/24 16:52 Dose: 40 mg Documented By: CHANI Gabapentin (Gabapentin 300 Mg Capsule) 600 mg PO TID [facility] Last Admin: 10/19/24 08:06 Dose: 600 mg Documented By: PHONG Hydromorphone HCl (Hydromorphone Hcl 1 Mg/Ml Syringe) 1 mg IVPUSH Q4H PRN; Protocol PRN Reason: Pain, Severe (Pain Scale 7-10) Last Admin: 10/19/24 04:35 Dose: 1 mg Documented By: BECKIE Lactated Ringer's (Lr) 1,000 mls @ 100 mls/hr IVCONT .Q10H [facility] Stop: 10/19/24 11:44 Last Admin: 10/19/24 01:49 Dose: 100 mls/hr Documented By: JESSICARISHortensia Insulin Human Lispro (Insulin Lispro 100 Unit/Ml 3 Ml Vial) 0 unit SUBCUT QIDACHS [facility]; Protocol Last Admin: 10/19/24 08:04 Dose: 2 unit Documented By: PHONG Lisinopril (Lisinopril 10 Mg Tablet) 10 mg PO DAILY [facility]; Protocol Last Admin: 10/19/24 08:05 Dose: 10 mg Documented By: PHONG Magnesium Hydroxide (Milk Of Magnesia 30 Ml Oral.Susp) 30 ml PO DAILY PRN PRN Reason: Constipation Melatonin (Melatonin 3 Mg Tablet) 6 mg PO BEDTIME PRN PRN Reason: Insomnia Metoprolol Succinate (Metoprolol Succinate Er 50 Mg Tab.Er.24h) 50 mg PO DAILY [facility]; Protocol Last Admin: 10/19/24 08:05 Dose: 50 mg Documented By: PHONG Ondansetron HCl (Ondansetron Hcl 4 Mg/2 Ml Vial) 4 mg IVPUSH Q8H PRN PRN Reason: Nausea and Vomiting Prazosin HCl (Prazosin Hcl 1 Mg Capsule) 1 mg PO BEDTIME [facility]; Protocol Sodium Chloride (0.9 % Sodium Chloride Flush 3 Ml Syringe) 3 ml IVFLUSH QSHIFT [facility] Last Admin: 10/19/24 08:06 Dose: 3 ml Documented By: PHONG Venlafaxine HCl (Venlafaxine Hcl Er 150 Mg Cap.Er.24h) 300 mg PO DAILY [facility] Last Admin: 10/19/24 08:05 Dose: 300 mg Documented By: PHONG Labs 10/19/24 05:45 10/19/24 05:44 Labs: Laboratory Results - last 24 hr 10/18/24 10/18/24 10/18/24 11:32 11:39 18:01 MCV 92.3 MCH 33.9 H MCHC 36.8 H RDW 12.7 Plt Count 187 D MPV 10.5 Immature Gran % (Auto) 0.3 Neut % (Auto) 68.4 Lymph % (Auto) 21.6 [place] % (Auto) 7.8 Eos % (Auto) 1.4 Baso % (Auto) 0.5 Lymph # (Auto) 1.4 [place] # (Auto) 0.5 Eos # (Auto) 0.1 Baso # (Auto) 0.0 Abs Immat Gran (auto) 0.02 Absolute Neuts (auto) 4.5 Absolute Nucleated RBC 0.000 Nucleated RBC % (auto) 0.0 PT 12.9 H INR 1.1 VBG pH 7.55 H VBG pCO2 24 VBG pO2 41 VBG HCO3 21 L VBG O2 Saturation 73.0 VBG Base Excess 0.8 Anion Gap 17 Estim Creat Clear Calc 93.7 Estimated GFR > 60 POC Glucose 232 H Random Glucose 318 H Calcium 9.4 Magnesium 2.0 Total Bilirubin 1.4 H AST 117 H ALT 107 H Alkaline Phosphatase 77 Troponin I High Sens 11.5 D C-Reactive Protein Total Protein 7.7 Albumin 4.4 Lipase 32 Beta-Hydroxybutyrate 0.75 H Ethyl Alcohol < 10 10/18/24 10/19/24 10/19/24 21:22 05:44 05:45 MCV 95.3 MCH 33.6 H MCHC 35.2 RDW 13.0 Plt Count 134 L D MPV 10.5 Immature Gran % (Auto) Neut % (Auto) Lymph % (Auto) [place] % (Auto) Eos % (Auto) Baso % (Auto) Lymph # (Auto) [place] # (Auto) Eos # (Auto) Baso # (Auto) Abs Immat Gran (auto) Absolute Neuts (auto) Absolute Nucleated RBC 0.000 Nucleated RBC % (auto) 0.0 PT INR VBG pH VBG pCO2 VBG pO2 VBG HCO3 VBG O2 Saturation VBG Base Excess Anion Gap 14 Estim Creat Clear Calc 115.8 Estimated GFR > 60 POC Glucose 256 H Random Glucose 193 H Calcium 8.8 D Magnesium Total Bilirubin 1.2 H AST 95 H ALT 99 H Alkaline Phosphatase 67 Troponin I High Sens C-Reactive Protein 1.44 H Total Protein 6.8 Albumin 3.9 Lipase Beta-Hydroxybutyrate Ethyl Alcohol 10/19/24 07:48 MCV MCH MCHC RDW Plt Count MPV Immature Gran % (Auto) Neut % (Auto) Lymph % (Auto) [place] % (Auto) Eos % (Auto) Baso % (Auto) Lymph # (Auto) [place] # (Auto) Eos # (Auto) Baso # (Auto) Abs Immat Gran (auto) Absolute Neuts (auto) Absolute Nucleated RBC Nucleated RBC % (auto) PT INR VBG pH VBG pCO2 VBG pO2 VBG HCO3 VBG O2 Saturation VBG Base Excess Anion Gap Estim Creat Clear Calc Estimated GFR POC Glucose 199 H Random Glucose Calcium Magnesium Total Bilirubin AST ALT Alkaline Phosphatase Troponin I High Sens C-Reactive Protein Total Protein Albumin Lipase Beta-Hydroxybutyrate Ethyl Alcohol Procedures Date of Service Date of Service: 10/19/24 Progress Note: A&P Assessment and plan (1) Enteritis: Status: Acute (2) Intractable abdominal pain: Status: Acute Plan 59-year-old male with a 4 day history of abdominal pain mainly in the lower abdomen found to have evidence of enteritis by CT. GI panel recommended by Dr. Ramires for possible infectious source. Patient reports no further diarrhea for the last 24 hours. Patient not currently on on antibiotics. We will continue to monitor. Time Spent With Patient Time: Total time managing care of this patient today ____ minutes. Quality Stroke Does the patient have a stroke diagnosis?: No VTE Prior VTE?: No VTE Risk Level:: Medical - moderate - high VTE Device Contraindication: N/A - Device Ordered VTE Drug Contraindication: N/A - Med Ordered
[2024-10-19 11:01] LABS: Appearance Urine Clear; Color Urine Dark Yellow; Glucose Urine UA 250 mg/dL (Negative); Leukocyte Esterase Urine Negative (Negative); Nitrite Urine Negative (Negative); PH 5.5 (5.0-9.0); Specific Gravity - Urine 1.025 (1.005-1.025); Urine Blood Negative (Negative); Urine Ketones Trace mg/dL (Negative); Urine Protein Trace mg/dL (Neg-Trace)
[2024-10-19 11:22] LABS: Glucose, Whole Blood 231 mg/dL (60-115)
--- NOTE | 2024-10-19 11:56 | HO.PM.IMPN ---
Subjective Subjective Date of Service: 10/19/24 Review of Systems Follow up abd pain no nausea or diarrhea Physical Exam Vital Signs: Vital Signs: Last Vital Signs Temp 96.8 F 10/19/24 07:44 Pulse 64 10/19/24 07:44 Resp 20 10/19/24 07:44 BP 169/66 H 10/19/24 07:44 Pulse Ox 95 10/19/24 07:44 O2 Del Method Room Air 10/19/24 07:44 BMI result Body Mass Index 38.7 Appearing in no acute distress lung sounds are clear to auscultation heart regular rate rhythm, clear S1, S2 positive bowel sounds, abdomen is soft, nontender neuro patient is alert x3, no focal deficits Objective Data Active Medications Acetaminophen (Acetaminophen 325 Mg Tablet) 650 mg PO Q6H PRN PRN Reason: Pain, Mild 1-3,fever,headache Calcium Carbonate (Calcium Carbonate 750 Mg Tab.Chew) 750 mg PO Q4H PRN PRN Reason: Heartburn Enoxaparin Sodium (Enoxaparin Sodium 40 Mg/0.4 Ml Syringe) 40 mg SUBCUT Q24H [facility] Last Admin: 10/18/24 16:52 Dose: 40 mg Documented By: CHANI Gabapentin (Gabapentin 300 Mg Capsule) 600 mg PO TID [facility] Last Admin: 10/19/24 08:06 Dose: 600 mg Documented By: PHONG Hydromorphone HCl (Hydromorphone Hcl 1 Mg/Ml Syringe) 1 mg IVPUSH Q4H PRN; Protocol PRN Reason: Pain, Severe (Pain Scale 7-10) Last Admin: 10/19/24 08:50 Dose: 1 mg Documented By: PHONG Insulin Human Lispro (Insulin Lispro 100 Unit/Ml 3 Ml Vial) 0 unit SUBCUT QIDACHS [facility]; Protocol Last Admin: 10/19/24 08:04 Dose: 2 unit Documented By: PHONG Lisinopril (Lisinopril 10 Mg Tablet) 10 mg PO DAILY [facility]; Protocol Last Admin: 10/19/24 08:05 Dose: 10 mg Documented By: PHONG Magnesium Hydroxide (Milk Of Magnesia 30 Ml Oral.Susp) 30 ml PO DAILY PRN PRN Reason: Constipation Melatonin (Melatonin 3 Mg Tablet) 6 mg PO BEDTIME PRN PRN Reason: Insomnia Metoprolol Succinate (Metoprolol Succinate Er 50 Mg Tab.Er.24h) 50 mg PO DAILY [facility]; Protocol Last Admin: 10/19/24 08:05 Dose: 50 mg Documented By: PHONG Ondansetron HCl (Ondansetron Hcl 4 Mg/2 Ml Vial) 4 mg IVPUSH Q8H PRN PRN Reason: Nausea and Vomiting Prazosin HCl (Prazosin Hcl 1 Mg Capsule) 1 mg PO BEDTIME [facility]; Protocol Sodium Chloride (0.9 % Sodium Chloride Flush 3 Ml Syringe) 3 ml IVFLUSH QSHIFT [facility] Last Admin: 10/19/24 08:06 Dose: 3 ml Documented By: PHONG Venlafaxine HCl (Venlafaxine Hcl Er 150 Mg Cap.Er.24h) 300 mg PO DAILY [facility] Last Admin: 10/19/24 08:05 Dose: 300 mg Documented By: PHONG Labs 10/19/24 05:45 10/19/24 05:44 Labs: Laboratory Results - last 24 hr 10/18/24 10/18/24 10/18/24 11:32 18:01 21:22 MCV MCH MCHC RDW Plt Count MPV Absolute Nucleated RBC Nucleated RBC % (auto) Anion Gap 17 Estim Creat Clear Calc 93.7 Estimated GFR > 60 POC Glucose 232 H 256 H Random Glucose 318 H Calcium 9.4 Magnesium 2.0 Total Bilirubin 1.4 H AST 117 H ALT 107 H Alkaline Phosphatase 77 Troponin I High Sens 11.5 D C-Reactive Protein Total Protein 7.7 Albumin 4.4 Lipase 32 Beta-Hydroxybutyrate 0.75 H Urine Color Urine Appearance Urine pH Ur Specific [place] Urine Protein Urine Glucose (UA) Urine Ketones Urine Blood Urine Nitrite Ur Leukocyte Esterase Ethyl Alcohol < 10 10/19/24 10/19/24 10/19/24 05:44 05:45 07:48 MCV 95.3 MCH 33.6 H MCHC 35.2 RDW 13.0 Plt Count 134 L D MPV 10.5 Absolute Nucleated RBC 0.000 Nucleated RBC % (auto) 0.0 Anion Gap 14 Estim Creat Clear Calc 115.8 Estimated GFR > 60 POC Glucose 199 H Random Glucose 193 H Calcium 8.8 D Magnesium Total Bilirubin 1.2 H AST 95 H ALT 99 H Alkaline Phosphatase 67 Troponin I High Sens C-Reactive Protein 1.44 H Total Protein 6.8 Albumin 3.9 Lipase Beta-Hydroxybutyrate Urine Color Urine Appearance Urine pH Ur Specific [place] Urine Protein Urine Glucose (UA) Urine Ketones Urine Blood Urine Nitrite Ur Leukocyte Esterase Ethyl Alcohol 10/19/24 10/19/24 10:43 11:11 MCV MCH MCHC RDW Plt Count MPV Absolute Nucleated RBC Nucleated RBC % (auto) Anion Gap Estim Creat Clear Calc Estimated GFR POC Glucose 231 H Random Glucose Calcium Magnesium Total Bilirubin AST ALT Alkaline Phosphatase Troponin I High Sens C-Reactive Protein Total Protein Albumin Lipase Beta-Hydroxybutyrate Urine Color Dark Yellow Urine Appearance Clear Urine pH 5.5 Ur Specific [place] 1.025 Urine Protein Trace Urine Glucose (UA) 250 H Urine Ketones Trace Urine Blood Negative Urine Nitrite Negative Ur Leukocyte Esterase Negative Ethyl Alcohol Assessment and Plan (1) Alcohol use disorder, moderate, dependence: Status: Acute (2) Enteritis: Status: Acute Plan 59-year-old male with a medical history of hypertension, diabetes, hyperlipidemia and heavy alcohol use who presents with a 4 day history of abdominal pain which began the day after after consuming clam chowder. His CT imaging shows enteritis. He has been symptomatically treated for his pain but it persistent, hence will be admitted for further care and evaluation. Intractable abdominal pain secondary to enteritis CT showing findings suggestive of enteritis General surgery and gastroenterology consult> no need for intervention as per gen surg GI rec IV fluids and antiemetics Hold off on antibiotics at this time no diarrhea advance to clear diet Elevated LFTs Heavy alcohol use Could be related to acute infection However, patient does endorse about 10-12 beers daily - last drink 4 days ago no signs of withdrawal at this time>monitor with COCO DM2 ss HTN resume home meds once med rec completed Mood continue baseline meds History of SVT continue beta-blockers Full Code DVT pptx - Lovenox Quality Stroke Does the patient have a stroke diagnosis?: No VTE Prior VTE?: No VTE Risk Level:: Medical - moderate - high VTE Device Contraindication: N/A - Device Ordered VTE Drug Contraindication: N/A - Med Ordered
[2024-10-19 15:18] VITALS: BP 129/77; PULSE 73; RESP 20; TEMP 36.2; O2SAT 99
[2024-10-19] MEDS: Enoxaparin Sodium 40 MG/0.4 ML SYRINGE SUBCUT (15:31)
[2024-10-19 16:10] LABS: Glucose, Whole Blood 222 mg/dL (60-115)
[2024-10-19] MEDS: LORazepam 1 MG TABLET PO (17:30)
[2024-10-19 19:59] VITALS: BP 135/70; PULSE 72; RESP 18; TEMP 36.9; O2SAT 98
--- NOTE | 2024-10-19 20:09 | PC.NURSE ---
pt medicated with dilaudid this afternoon for 10/10 RLQ abdominal pain with pt stating upon recheck that pain was still 10/10. He was also noted to be diaphoretic with sweat beaded on forehead and body clammy. All other CIWA symptoms neg. POC 222, MD aware and Ativan given as ordered with pt sleeping with no s/s distress looking the most comfortable he has looked all day.
[2024-10-19 20:52] LABS: Glucose, Whole Blood 146 mg/dL (60-115)
[2024-10-19] MEDS: Prazosin HCL 1 MG CAPSULE PO (21:06)
[2024-10-20] VITALS (7 sets, daily range): BP systolic 114–137; BP diastolic 63–75; PULSE 59–68; RESP 16–18; TEMP 36–36.6; O2SAT 96–99
[2024-10-20] MEDS: HYDROmorphone HCl 1 MG/ML SYRINGE IVPUSH ×6 (03:33→22:31)
[2024-10-20 07:11] LABS: Glucose, Whole Blood 202 mg/dL (60-115)
[2024-10-20] MEDS: Insulin Lispro 100 UNIT/ML 3 ML VIAL SUBCUT ×3 (08:01→21:30)
[2024-10-20] MEDS: Venlafaxine HCl ER 150 MG CAP.ER.24H 300 MG PO (08:04)
[2024-10-20] MEDS: 0.9 % Sodium Chloride Flush 3 ML SYRINGE IVFLUSH ×2 (08:04→22:31)
[2024-10-20] MEDS: Metoprolol Succinate ER 50 MG TAB.ER.24H PO (08:04)
[2024-10-20] MEDS: lisinopriL 10 MG TABLET PO (08:04)
[2024-10-20] MEDS: Gabapentin 300 MG CAPSULE 600 MG PO ×3 (08:04→21:29)
[2024-10-20] MEDS: Lactated Ringers 1,000 ML 100 ML IVCONT ×2 (08:06→17:35)
--- NOTE | 2024-10-20 08:08 | PM.PNGS ---
Subjective Subjective Date of Service: 10/20/24 Interval history: Tolerating clear liquids No nausea or vomiting Diarrhea resolved States he still has pain diffusely Physical Exam Vital Signs: Vital Signs: Last Vital Signs Temp 97.8 F 10/20/24 07:04 Pulse 63 10/20/24 07:04 Resp 18 10/20/24 07:04 BP 135/67 10/20/24 07:04 Pulse Ox 96 10/20/24 07:04 O2 Del Method Room Air 10/20/24 07:04 BMI result Body Mass Index 38.7 Const: Other: Nontoxic looking General: comfortable and no acute distress Resp: Effort & Inspection: normal respiratory effort Cardio: Rate: regular rate GI: Other: Has voluntary guarding otherwise soft Palpation (GI): not firm and Tenderness to palpation present (GI) Objective Data Active Medications Acetaminophen (Acetaminophen 325 Mg Tablet) 650 mg PO Q6H PRN PRN Reason: Pain, Mild 1-3,fever,headache Calcium Carbonate (Calcium Carbonate 750 Mg Tab.Chew) 750 mg PO Q4H PRN PRN Reason: Heartburn Enoxaparin Sodium (Enoxaparin Sodium 40 Mg/0.4 Ml Syringe) 40 mg SUBCUT Q24H [facility] Last Admin: 10/19/24 15:31 Dose: 40 mg Documented By: PHONG Gabapentin (Gabapentin 300 Mg Capsule) 600 mg PO TID [facility] Last Admin: 10/20/24 08:04 Dose: 600 mg Documented By: DAGO Hydromorphone HCl (Hydromorphone Hcl 1 Mg/Ml Syringe) 1 mg IVPUSH Q4H PRN; Protocol PRN Reason: Pain, Severe (Pain Scale 7-10) Last Admin: 10/20/24 08:00 Dose: 1 mg Documented By: DAGO Lactated Ringer's (Lr) 1,000 mls @ 100 mls/hr IVCONT .Q10H [facility] Last Admin: 10/20/24 08:06 Dose: 100 mls/hr Documented By: DAGO Insulin Human Lispro (Insulin Lispro 100 Unit/Ml 3 Ml Vial) 0 unit SUBCUT QIDACHS [facility]; Protocol Last Admin: 10/20/24 08:01 Dose: 4 unit Documented By: DAGO Lisinopril (Lisinopril 10 Mg Tablet) 10 mg PO DAILY [facility]; Protocol Last Admin: 10/20/24 08:04 Dose: 10 mg Documented By: DAGO Lorazepam (Lorazepam 1 Mg Tablet) 1 mg PO Q8H PRN PRN Reason: Anxiety Last Admin: 10/19/24 17:30 Dose: 1 mg Documented By: PHONG Magnesium Hydroxide (Milk Of Magnesia 30 Ml Oral.Susp) 30 ml PO DAILY PRN PRN Reason: Constipation Melatonin (Melatonin 3 Mg Tablet) 6 mg PO BEDTIME PRN PRN Reason: Insomnia Metoprolol Succinate (Metoprolol Succinate Er 50 Mg Tab.Er.24h) 50 mg PO DAILY [facility]; Protocol Last Admin: 10/20/24 08:04 Dose: 50 mg Documented By: DAGO Ondansetron HCl (Ondansetron Hcl 4 Mg/2 Ml Vial) 4 mg IVPUSH Q8H PRN PRN Reason: Nausea and Vomiting Prazosin HCl (Prazosin Hcl 1 Mg Capsule) 1 mg PO BEDTIME [facility]; Protocol Last Admin: 10/19/24 21:06 Dose: 1 mg Documented By: CECILIA Sodium Chloride (0.9 % Sodium Chloride Flush 3 Ml Syringe) 3 ml IVFLUSH QSHIFT [facility] Last Admin: 10/20/24 08:04 Dose: 3 ml Documented By: DAGO Venlafaxine HCl (Venlafaxine Hcl Er 150 Mg Cap.Er.24h) 300 mg PO DAILY [facility] Last Admin: 10/20/24 08:04 Dose: 300 mg Documented By: DAGO Labs 10/19/24 05:45 10/19/24 05:44 Labs: Laboratory Results - last 24 hr 10/19/24 10/19/24 10/19/24 10:43 11:11 16:07 POC Glucose 231 H 222 H Urine Color Dark Yellow Urine Appearance Clear Urine pH 5.5 Ur Specific [place] 1.025 Urine Protein Trace Urine Glucose (UA) 250 H Urine Ketones Trace Urine Blood Negative Urine Nitrite Negative Ur Leukocyte Esterase Negative 10/19/24 10/20/24 20:45 07:03 POC Glucose 146 H 202 H Urine Color Urine Appearance Urine pH Ur Specific [place] Urine Protein Urine Glucose (UA) Urine Ketones Urine Blood Urine Nitrite Ur Leukocyte Esterase Procedures Date of Service Date of Service: 10/20/24 Progress Note: A&P Assessment and plan (1) Enteritis: Status: Acute Assessment and Plan: Still having pain Clinically looks well Nontoxic looking Abdomen soft even with voluntary guarding Would keep on clear liquids only GI follow-up Time Spent With Patient Time: Total time managing care of this patient today ____ minutes. Quality Stroke Does the patient have a stroke diagnosis?: No VTE Prior VTE?: No VTE Risk Level:: Medical - moderate - high VTE Device Contraindication: N/A - Device Ordered VTE Drug Contraindication: N/A - Med Ordered
[2024-10-20] MEDS: LORazepam 1 MG TABLET PO (08:21)
--- NOTE | 2024-10-20 09:44 | HO.PM.IMPN ---
Subjective Subjective Date of Service: 10/20/24 Interval History: seen and examined still with pain denies diarrhea Review of Systems Negative except HPI/interval history. Physical Exam Vital Signs: Vital Signs: Last Vital Signs Temp 97.8 F 10/20/24 07:04 Pulse 63 10/20/24 07:04 Resp 18 10/20/24 07:04 BP 135/67 10/20/24 07:04 Pulse Ox 96 10/20/24 07:04 O2 Del Method Room Air 10/20/24 07:04 BMI result Body Mass Index 38.7 Const: Other: General - no acute distress, appears comfortable Cardiovascular - regular rate and rhythm, S1-S2 Lungs - normal respiratory effort, clear to auscultation bilaterally, no wheezing Abdomen - soft with voluntary guarding, diffuse tenderness to palpation Extremities - no edema bilaterally Neuro - awake and alert, no focal deficits Objective Data Active Medications Acetaminophen (Acetaminophen 325 Mg Tablet) 650 mg PO Q6H PRN PRN Reason: Pain, Mild 1-3,fever,headache Calcium Carbonate (Calcium Carbonate 750 Mg Tab.Chew) 750 mg PO Q4H PRN PRN Reason: Heartburn Enoxaparin Sodium (Enoxaparin Sodium 40 Mg/0.4 Ml Syringe) 40 mg SUBCUT Q24H [facility] Last Admin: 10/19/24 15:31 Dose: 40 mg Documented By: PHONG Gabapentin (Gabapentin 300 Mg Capsule) 600 mg PO TID [facility] Last Admin: 10/20/24 08:04 Dose: 600 mg Documented By: DAGO Hydromorphone HCl (Hydromorphone Hcl 1 Mg/Ml Syringe) 1 mg IVPUSH Q4H PRN; Protocol PRN Reason: Pain, Severe (Pain Scale 7-10) Last Admin: 10/20/24 08:00 Dose: 1 mg Documented By: DAGO Lactated Ringer's (Lr) 1,000 mls @ 100 mls/hr IVCONT .Q10H [facility] Last Admin: 10/20/24 08:06 Dose: 100 mls/hr Documented By: DAGO Insulin Human Lispro (Insulin Lispro 100 Unit/Ml 3 Ml Vial) 0 unit SUBCUT QIDACHS [facility]; Protocol Last Admin: 10/20/24 08:01 Dose: 4 unit Documented By: DAGO Lisinopril (Lisinopril 10 Mg Tablet) 10 mg PO DAILY [facility]; Protocol Last Admin: 10/20/24 08:04 Dose: 10 mg Documented By: DAGO Lorazepam (Lorazepam 1 Mg Tablet) 1 mg PO Q8H PRN PRN Reason: Anxiety Last Admin: 10/20/24 08:21 Dose: 1 mg Documented By: DAGO Magnesium Hydroxide (Milk Of Magnesia 30 Ml Oral.Susp) 30 ml PO DAILY PRN PRN Reason: Constipation Melatonin (Melatonin 3 Mg Tablet) 6 mg PO BEDTIME PRN PRN Reason: Insomnia Metoprolol Succinate (Metoprolol Succinate Er 50 Mg Tab.Er.24h) 50 mg PO DAILY [facility]; Protocol Last Admin: 10/20/24 08:04 Dose: 50 mg Documented By: DAGO Ondansetron HCl (Ondansetron Hcl 4 Mg/2 Ml Vial) 4 mg IVPUSH Q8H PRN PRN Reason: Nausea and Vomiting Prazosin HCl (Prazosin Hcl 1 Mg Capsule) 1 mg PO BEDTIME [facility]; Protocol Last Admin: 10/19/24 21:06 Dose: 1 mg Documented By: CECILIA Sodium Chloride (0.9 % Sodium Chloride Flush 3 Ml Syringe) 3 ml IVFLUSH QSHIFT [facility]PLACED [facility] Last Admin: 10/20/24 08:04 Dose: 3 ml Documented By: DAGO Venlafaxine HCl (Venlafaxine Hcl Er 150 Mg Cap.Er.24h) 300 mg PO DAILY [facility] Last Admin: 10/20/24 08:04 Dose: 300 mg Documented By: DAGO Labs 10/19/24 05:45 10/19/24 05:44 Labs: Laboratory Results - last 24 hr 10/19/24 10/19/24 10/19/24 10:43 11:11 16:07 POC Glucose 231 H 222 H Urine Color Dark Yellow Urine Appearance Clear Urine pH 5.5 Ur Specific [place] 1.025 Urine Protein Trace Urine Glucose (UA) 250 H Urine Ketones Trace Urine Blood Negative Urine Nitrite Negative Ur Leukocyte Esterase Negative 10/19/24 10/20/24 20:45 07:03 POC Glucose 146 H 202 H Urine Color Urine Appearance Urine pH Ur Specific [place] Urine Protein Urine Glucose (UA) Urine Ketones Urine Blood Urine Nitrite Ur Leukocyte Esterase Assessment and Plan (1) Alcohol use disorder, moderate, dependence: Status: Acute (2) Enteritis: Status: Acute Plan 59-year-old male with a medical history of hypertension, diabetes, hyperlipidemia and heavy alcohol use who presents with a 4 day history of abdominal pain which began the day after after consuming clam chowder. His CT imaging shows enteritis. He has been symptomatically treated for his pain but it persistent, hence will be admitted for further care and evaluation. 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 No signs of withdrawal Monitor with CIWA Patient educated on the effects of alcohol on his health seen by addiction me DM2 POC+ sliding scale HTN continue metoprolol + lisinopril Mood continue baseline meds History of SVT continue beta-blockers Full Code DVT pptx - Lovenox Reason for ongoing hospitalization: Patient with ongoing abdominal pain which is not improved and is still requiring IV analgesics 4-6 times per day Quality Stroke Does the patient have a stroke diagnosis?: No VTE Prior VTE?: No VTE Risk Level:: Medical - moderate - high VTE Device Contraindication: N/A - Device Ordered VTE Drug Contraindication: N/A - Med Ordered
[2024-10-20 11:13] LABS: Glucose, Whole Blood 194 mg/dL (60-115)
[2024-10-20] MEDS: cefTRIAXone sodium 1 GM VIAL IVPUSH (11:20)
[2024-10-20] MEDS: Enoxaparin Sodium 40 MG/0.4 ML SYRINGE SUBCUT (14:57)
[2024-10-20 15:55] LABS: Glucose, Whole Blood 142 mg/dL (60-115)
[2024-10-20 16:15] LABS: Glucose, Whole Blood 149 mg/dL (60-115)
[2024-10-20 21:10] LABS: Glucose, Whole Blood 158 mg/dL (60-115)
[2024-10-20] MEDS: Prazosin HCL 1 MG CAPSULE PO (21:29)
[2024-10-21] MEDS: Lactated Ringers 1,000 ML 100 ML IVCONT ×3 (02:52→22:54)
[2024-10-21 03:13] VITALS: RESP 18
[2024-10-21] MEDS: HYDROmorphone HCl 1 MG/ML SYRINGE IVPUSH ×6 (03:13→22:51)
[2024-10-21 03:21] VITALS: BP 120/69; PULSE 62; RESP 18; TEMP 36.2; O2SAT 99
[2024-10-21 03:43] VITALS: RESP 18
[2024-10-21 07:30] LABS: Glucose, Whole Blood 178 mg/dL (60-115)
[2024-10-21] MEDS: Insulin Lispro 100 UNIT/ML 3 ML VIAL SUBCUT ×2 (07:48→11:38)
[2024-10-21 07:50] VITALS: BP 127/88; PULSE 64; RESP 18; TEMP 36.6; O2SAT 94
[2024-10-21] MEDS: Gabapentin 300 MG CAPSULE 600 MG PO ×3 (07:50→19:54)
[2024-10-21] MEDS: Venlafaxine HCl ER 150 MG CAP.ER.24H 300 MG PO (07:50)
[2024-10-21] MEDS: Metoprolol Succinate ER 50 MG TAB.ER.24H PO (07:51)
[2024-10-21] MEDS: lisinopriL 10 MG TABLET PO (07:51)
[2024-10-21] MEDS: LORazepam 1 MG TABLET PO (08:02)
[2024-10-21] MEDS: Acetaminophen 325 MG TABLET 650 MG PO (08:03)
--- NOTE | 2024-10-21 08:20 | PM.PNGS ---
Subjective Subjective Date of Service: 10/21/24 Interval history: Continues to have the same abdominal pain Denies nausea or vomiting Has BMs and flatus Tolerating clear liquids well No fever Physical Exam Vital Signs: Vital Signs: Last Vital Signs Temp 97.8 F 10/21/24 07:50 Pulse 64 10/21/24 07:50 Resp 18 10/21/24 07:50 BP 127/88 10/21/24 07:50 Pulse Ox 94 10/21/24 07:50 O2 Del Method Room Air 10/21/24 07:50 BMI result Body Mass Index 38.7 Const: Other: Not toxic looking General: comfortable and no acute distress Resp: Effort & Inspection: normal respiratory effort Cardio: Rate: regular rate GI: Palpation (GI): Soft to palpation and Tenderness to palpation present (GI) (Diffusely with voluntary guarding) Objective Data Active Medications Acetaminophen (Acetaminophen 325 Mg Tablet) 650 mg PO Q6H PRN PRN Reason: Pain, Mild 1-3,fever,headache Last Admin: 10/21/24 08:03 Dose: 650 mg Documented By: TIM Calcium Carbonate (Calcium Carbonate 750 Mg Tab.Chew) 750 mg PO Q4H PRN PRN Reason: Heartburn Ceftriaxone Sodium (Ceftriaxone Sodium 1 Gm Vial) 1 gm IVPUSH Q24H [facility] Last Admin: 10/20/24 11:20 Dose: 1 gm Documented By: DAGO Enoxaparin Sodium (Enoxaparin Sodium 40 Mg/0.4 Ml Syringe) 40 mg SUBCUT Q24H [facility] Last Admin: 10/20/24 14:57 Dose: 40 mg Documented By: DAGO Gabapentin (Gabapentin 300 Mg Capsule) 600 mg PO TID [facility] Last Admin: 10/21/24 07:50 Dose: 600 mg Documented By: TIM Hydromorphone HCl (Hydromorphone Hcl 1 Mg/Ml Syringe) 1 mg IVPUSH Q3H PRN; Protocol PRN Reason: Pain, Severe (Pain Scale 7-10) Last Admin: 10/21/24 07:23 Dose: 1 mg Documented By: ОЛЬГА Lactated Ringer's (Lr) 1,000 mls @ 100 mls/hr IVCONT .Q10H [facility] Last Admin: 10/21/24 02:52 Dose: 100 mls/hr Documented By: CECILIA Insulin Human Lispro (Insulin Lispro 100 Unit/Ml 3 Ml Vial) 0 unit SUBCUT QIDACHS [facility]; Protocol Last Admin: 10/21/24 07:48 Dose: 2 unit Documented By: TIM Lisinopril (Lisinopril 10 Mg Tablet) 10 mg PO DAILY [facility]; Protocol Last Admin: 10/21/24 07:51 Dose: 10 mg Documented By: TIM Lorazepam (Lorazepam 1 Mg Tablet) 1 mg PO Q8H PRN PRN Reason: Anxiety Last Admin: 10/21/24 08:02 Dose: 1 mg Documented By: TIM Magnesium Hydroxide (Milk Of Magnesia 30 Ml Oral.Susp) 30 ml PO DAILY PRN PRN Reason: Constipation Melatonin (Melatonin 3 Mg Tablet) 6 mg PO BEDTIME PRN PRN Reason: Insomnia Metoprolol Succinate (Metoprolol Succinate Er 50 Mg Tab.Er.24h) 50 mg PO DAILY [facility]; Protocol Last Admin: 10/21/24 07:51 Dose: 50 mg Documented By: TIM Ondansetron HCl (Ondansetron Hcl 4 Mg/2 Ml Vial) 4 mg IVPUSH Q8H PRN PRN Reason: Nausea and Vomiting Prazosin HCl (Prazosin Hcl 1 Mg Capsule) 1 mg PO BEDTIME [facility]; Protocol Last Admin: 10/20/24 21:29 Dose: 1 mg Documented By: CECILIA Sodium Chloride (0.9 % Sodium Chloride Flush 3 Ml Syringe) 3 ml IVFLUSH QSHIFT [facility] Last Admin: 10/21/24 07:25 Dose: Not Given Documented By: ОЛЬГА Non-Admin Reason: IV Running Venlafaxine HCl (Venlafaxine Hcl Er 150 Mg Cap.Er.24h) 300 mg PO DAILY [facility] Last Admin: 10/21/24 07:50 Dose: 300 mg Documented By: TIM Labs 10/19/24 05:45 10/19/24 05:44 Labs: Laboratory Results - last 24 hr 10/20/24 10/20/24 10/20/24 11:09 15:48 16:11 POC Glucose 194 H 142 H 149 H 10/20/24 10/21/24 21:03 07:25 POC Glucose 158 H 178 H Procedures Date of Service Date of Service: 10/21/24 Progress Note: A&P Assessment and plan (1) Enteritis: Status: Acute Assessment and Plan: Continues to have pain issues the abdomen Clinically looks well Non tachycardic No fever No nausea or vomiting Has BMs and flatus Will order repeat CT scan Reviewed with hospitalist service Time Spent With Patient Time: Total time managing care of this patient today ____ minutes. Quality Stroke Does the patient have a stroke diagnosis?: No VTE Prior VTE?: No VTE Risk Level:: Medical - moderate - high VTE Device Contraindication: N/A - Device Ordered VTE Drug Contraindication: N/A - Med Ordered
--- NOTE | 2024-10-21 09:12 | HO.PM.IMPN ---
Subjective Subjective Date of Service: 10/21/24 Interval History: seen and examined still with pain, relieved by iv meds denies diarrhea Review of Systems Negative except HPI/interval history. Physical Exam Vital Signs: Vital Signs: Last Vital Signs Temp 97.8 F 10/21/24 07:50 Pulse 64 10/21/24 07:50 Resp 18 10/21/24 07:50 BP 127/88 10/21/24 07:50 Pulse Ox 94 10/21/24 07:50 O2 Del Method Room Air 10/21/24 07:50 BMI result Body Mass Index 38.7 Const: Other: General - no acute distress, appears comfortable Cardiovascular - regular rate and rhythm, S1-S2 Lungs - normal respiratory effort, clear to auscultation bilaterally, no wheezing Abdomen - soft with voluntary guarding, diffuse tenderness to palpation Extremities - no edema bilaterally Neuro - awake and alert, no focal deficits Objective Data Active Medications Acetaminophen (Acetaminophen 325 Mg Tablet) 650 mg PO Q6H PRN PRN Reason: Pain, Mild 1-3,fever,headache Last Admin: 10/21/24 08:03 Dose: 650 mg Documented By: TIM Calcium Carbonate (Calcium Carbonate 750 Mg Tab.Chew) 750 mg PO Q4H PRN PRN Reason: Heartburn Ceftriaxone Sodium (Ceftriaxone Sodium 1 Gm Vial) 1 gm IVPUSH Q24H [facility] Last Admin: 10/20/24 11:20 Dose: 1 gm Documented By: DAGO Enoxaparin Sodium (Enoxaparin Sodium 40 Mg/0.4 Ml Syringe) 40 mg SUBCUT Q24H [facility] Last Admin: 10/20/24 14:57 Dose: 40 mg Documented By: DAGO Gabapentin (Gabapentin 300 Mg Capsule) 600 mg PO TID [facility] Last Admin: 10/21/24 07:50 Dose: 600 mg Documented By: TIM Hydromorphone HCl (Hydromorphone Hcl 1 Mg/Ml Syringe) 1 mg IVPUSH Q3H PRN; Protocol PRN Reason: Pain, Severe (Pain Scale 7-10) Last Admin: 10/21/24 07:23 Dose: 1 mg Documented By: ОЛЬГА Lactated Ringer's (Lr) 1,000 mls @ 100 mls/hr IVCONT .Q10H [facility] Last Admin: 10/21/24 02:52 Dose: 100 mls/hr Documented By: CECILIA Insulin Human Lispro (Insulin Lispro 100 Unit/Ml 3 Ml Vial) 0 unit SUBCUT QIDACHS [facility]; Protocol Last Admin: 10/21/24 07:48 Dose: 2 unit Documented By: TIM Lisinopril (Lisinopril 10 Mg Tablet) 10 mg PO DAILY [facility]; Protocol Last Admin: 10/21/24 07:51 Dose: 10 mg Documented By: TIM Lorazepam (Lorazepam 1 Mg Tablet) 1 mg PO Q8H PRN PRN Reason: Anxiety Last Admin: 10/21/24 08:02 Dose: 1 mg Documented By: TIM Magnesium Hydroxide (Milk Of Magnesia 30 Ml Oral.Susp) 30 ml PO DAILY PRN PRN Reason: Constipation Melatonin (Melatonin 3 Mg Tablet) 6 mg PO BEDTIME PRN PRN Reason: Insomnia Metoprolol Succinate (Metoprolol Succinate Er 50 Mg Tab.Er.24h) 50 mg PO DAILY [facility]; Protocol Last Admin: 10/21/24 07:51 Dose: 50 mg Documented By: TIM Ondansetron HCl (Ondansetron Hcl 4 Mg/2 Ml Vial) 4 mg IVPUSH Q8H PRN PRN Reason: Nausea and Vomiting Prazosin HCl (Prazosin Hcl 1 Mg Capsule) 1 mg PO BEDTIME [facility]; Protocol Last Admin: 10/20/24 21:29 Dose: 1 mg Documented By: CECILIA Sodium Chloride (0.9 % Sodium Chloride Flush 3 Ml Syringe) 3 ml IVFLUSH QSHIFT [facility] Last Admin: 10/21/24 07:25 Dose: Not Given Documented By: ОЛЬГА Non-Admin Reason: IV Running Venlafaxine HCl (Venlafaxine Hcl Er 150 Mg Cap.Er.24h) 300 mg PO DAILY [facility] Last Admin: 10/21/24 07:50 Dose: 300 mg Documented By: TIM Labs 10/19/24 05:45 10/19/24 05:44 Labs: Laboratory Results - last 24 hr 10/20/24 10/20/24 10/20/24 11:09 15:48 16:11 POC Glucose 194 H 142 H 149 H 10/20/24 10/21/24 21:03 07:25 POC Glucose 158 H 178 H Assessment and Plan (1) Alcohol use disorder, moderate, dependence: Status: Acute (2) Enteritis: Status: Acute Plan 59-year-old male with a medical history of hypertension, diabetes, hyperlipidemia and heavy alcohol use who presents with a 4 day history of abdominal pain which began the day after after consuming clam chowder. His CT imaging shows enteritis. He has been symptomatically treated for his pain but it persistent, hence will be admitted for further care and evaluation. 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 No signs of withdrawal Monitor with [employer] Patient educated on the effects of alcohol on his health seen by addiction me DM2 POC+ sliding scale HTN continue metoprolol + lisinopril Mood continue baseline meds History of SVT continue beta-blockers Full Code DVT pptx - Lovenox Reason for ongoing hospitalization: Patient with ongoing abdominal pain which is not improved and is still requiring IV analgesics 4-6 times per day; repeat imaging planned Quality Stroke Does the patient have a stroke diagnosis?: No VTE Prior VTE?: No VTE Risk Level:: Medical - moderate - high VTE Device Contraindication: N/A - Device Ordered VTE Drug Contraindication: N/A - Med Ordered
--- NOTE | 2024-10-21 09:17 | PC.NURSE ---
CT scan will be done at 100 per emissions technician,Manish Granado made aware
[2024-10-21] MEDS: cefTRIAXone sodium 1 GM VIAL IVPUSH (09:19)
[2024-10-21] MEDS: iohexoL 350 MG/ML 100 ML INFUS..BTL IV (10:24)
[2024-10-21 11:18] LABS: Glucose, Whole Blood 162 mg/dL (60-115)
--- NOTE | 2024-10-21 13:08 | MHC.CM.PN ---
per rounds pt not ready for dc will be having a rpeat cat scan
--- NOTE | 2024-10-21 13:32 | PM.EVENT ---
Event Note Date of Service: 10/21/24 Event Note: Seen on afternoon rounds Feels better this afternoon Still has pain but has compared to this morning Denies any nausea or vomiting Looks well and appears comfortable Abdomen is soft, with voluntary guarding CT scan reviewed with radiologist - still with some edema of segment of the small small bowel but improved compared to 3 days ago, no other pathology seen Continue on clear liquids for now Clinically looks well IV fluids Time Spent With Patient Time: Total time managing care of this patient today ____ minutes.
[2024-10-21] MEDS: 0.9 % Sodium Chloride Flush 3 ML SYRINGE IVFLUSH (14:58)
[2024-10-21] MEDS: Enoxaparin Sodium 40 MG/0.4 ML SYRINGE SUBCUT (14:59)
[2024-10-21 15:25] VITALS: BP 122/61; PULSE 69; RESP 18; TEMP 36.2; O2SAT 97
[2024-10-21 16:13] LABS: Glucose, Whole Blood 145 mg/dL (60-115)
[2024-10-21 19:28] VITALS: BP 143/84; PULSE 55; RESP 18; TEMP 36.2; O2SAT 97
[2024-10-21 19:39] LABS: Glucose, Whole Blood 117 mg/dL (60-115)
[2024-10-21] MEDS: Prazosin HCL 1 MG CAPSULE PO (19:54)
[2024-10-22] MEDS: HYDROmorphone HCl 1 MG/ML SYRINGE IVPUSH ×3 (02:03→11:29)
[2024-10-22 03:26] VITALS: BP 107/71; PULSE 63; RESP 18; TEMP 36.1; O2SAT 96
[2024-10-22] MEDS: LORazepam 1 MG TABLET PO (03:43)
[2024-10-22 05:45] LABS: Hematocrit 35.6 % (42.0-52.0); Hemoglobin 12.2 g/dl (14.0-18.0); Mean Corpuscular HGB Conc 34.3 g/dl (31.0-36.0); Mean Corpuscular Hemoglobin 33.4 pg (27.0-33.0); Mean Corpuscular Volume 97.5 fL (80.0-98.0); Mean Platelet Volume 10.7 fL (9.4-12.4); Platelet Count 116 X10*3/uL (160-400); Red Blood Count 3.65 X10*6/uL (4.60-5.80); Red Cell Distribution Width 13.1 % (11.0-16.0); White Blood Count 3.1 X10*3/uL (4.8-10.8)
[2024-10-22 05:55] LABS: Alanine Aminotransferase 119 U/L (0-40); Albumin Level 3.4 g/dL (3.5-5.0); Alkaline Phosphatase 68 U/L (39-117); Anion Gap 10 (12-20); Aspartate Amino Transferase 67 U/L (5-37); Bilirubin Total 0.8 mg/dL (0.0-1.0); Blood Urea Nitrogen 5 mg/dL (9-16); Calcium 8.5 mg/dL (8.4-10.2); Carbon Dioxide 29 mmol/L (22-29); Chloride 104 mmol/L (96-108); Creatinine Clr Calc Pharmacy 119.8; Estimated Glomerular Filt Rate > 60; Glucose Random 205 mg/dL (60-115); Potassium 4.2 mmol/L (3.3-5.1); Sodium 139 mmol/L (135-145); Total Protein 5.9 g/dL (6.5-8.0)
[2024-10-22 07:10] VITALS: BP 106/59; PULSE 63; RESP 18; TEMP 36.1; O2SAT 96
[2024-10-22 07:27] LABS: Glucose, Whole Blood 155 mg/dL (60-115)
[2024-10-22] MEDS: Insulin Lispro 100 UNIT/ML 3 ML VIAL SUBCUT ×2 (07:39→11:28)
[2024-10-22] MEDS: Metoprolol Succinate ER 50 MG TAB.ER.24H PO (07:40)
[2024-10-22] MEDS: 0.9 % Sodium Chloride Flush 3 ML SYRINGE IVFLUSH (07:40)
[2024-10-22] MEDS: lisinopriL 10 MG TABLET PO (07:40)
[2024-10-22] MEDS: Venlafaxine HCl ER 150 MG CAP.ER.24H 300 MG PO (07:40)
[2024-10-22] MEDS: Gabapentin 300 MG CAPSULE 600 MG PO (07:40)
--- NOTE | 2024-10-22 08:51 | P.PNGS_ITS ---
Subjective Subjective Date of Service: 10/22/24 Interval history: Continues to have we have abdominal pain in the lower abdomen. He does feel hungry and is asking for more to eat today. Physical Exam 2 Vital Signs: Vital Signs: Last Vital Signs Temp 97.0 F 10/22/24 07:10 Pulse 63 10/22/24 07:10 Resp 18 10/22/24 07:10 BP 106/59 L 10/22/24 07:10 Pulse Ox 96 10/22/24 07:10 O2 Del Method Room Air 10/22/24 07:10 BMI result Body Mass Index 38.7 Const: Other: Not toxic looking General: comfortable and no acute distress Resp: Effort & Inspection: normal respiratory effort Cardio: Rate: regular rate GI: Palpation (GI): Soft to palpation and Tenderness to palpation present (GI) (Diffusely with voluntary guarding) Objective Data Active Medications Acetaminophen (Acetaminophen 325 Mg Tablet) 650 mg PO Q6H PRN PRN Reason: Pain, Mild 1-3,fever,headache Last Admin: 10/21/24 08:03 Dose: 650 mg Documented By: TIM Calcium Carbonate (Calcium Carbonate 750 Mg Tab.Chew) 750 mg PO Q4H PRN PRN Reason: Heartburn Ceftriaxone Sodium (Ceftriaxone Sodium 1 Gm Vial) 1 gm IVPUSH Q24H [facility] Last Admin: 10/21/24 09:19 Dose: 1 gm Documented By: TIM Enoxaparin Sodium (Enoxaparin Sodium 40 Mg/0.4 Ml Syringe) 40 mg SUBCUT Q24H [facility] Last Admin: 10/21/24 14:59 Dose: 40 mg Documented By: TIM Gabapentin (Gabapentin 300 Mg Capsule) 600 mg PO TID [facility] Last Admin: 10/22/24 07:40 Dose: 600 mg Documented By: ANGELICA Hydromorphone HCl (Hydromorphone Hcl 1 Mg/Ml Syringe) 1 mg IVPUSH Q3H PRN; Protocol PRN Reason: Pain, Severe (Pain Scale 7-10) Last Admin: 10/22/24 07:39 Dose: 1 mg Documented By: ANGELICA Insulin Human Lispro (Insulin Lispro 100 Unit/Ml 3 Ml Vial) 0 unit SUBCUT QIDACHS [facility]; Protocol Last Admin: 10/22/24 07:39 Dose: 2 unit Documented By: ANGELICA Lisinopril (Lisinopril 10 Mg Tablet) 10 mg PO DAILY [facility]; Protocol Last Admin: 10/22/24 07:40 Dose: 10 mg Documented By: ANGELICA Lorazepam (Lorazepam 1 Mg Tablet) 1 mg PO Q8H PRN PRN Reason: Anxiety Last Admin: 10/22/24 03:43 Dose: 1 mg Documented By: ALLISON Magnesium Hydroxide (Milk Of Magnesia 30 Ml Oral.Susp) 30 ml PO DAILY PRN PRN Reason: Constipation Melatonin (Melatonin 3 Mg Tablet) 6 mg PO BEDTIME PRN PRN Reason: Insomnia Metoprolol Succinate (Metoprolol Succinate Er 50 Mg Tab.Er.24h) 50 mg PO DAILY [facility]; Protocol Last Admin: 10/22/24 07:40 Dose: 50 mg Documented By: ANGELICA Ondansetron HCl (Ondansetron Hcl 4 Mg/2 Ml Vial) 4 mg IVPUSH Q8H PRN PRN Reason: Nausea and Vomiting Prazosin HCl (Prazosin Hcl 1 Mg Capsule) 1 mg PO BEDTIME [facility]; Protocol Last Admin: 10/21/24 19:54 Dose: 1 mg Documented By: ERNIE Sodium Chloride (0.9 % Sodium Chloride Flush 3 Ml Syringe) 3 ml IVFLUSH QSHIFT [facility] Last Admin: 10/22/24 07:40 Dose: 3 ml Documented By: ANGELICA Venlafaxine HCl (Venlafaxine Hcl Er 150 Mg Cap.Er.24h) 300 mg PO DAILY [facility] Last Admin: 10/22/24 07:40 Dose: 300 mg Documented By: ANGELICA Labs 10/22/24 05:16 10/22/24 05:16 Labs: Laboratory Results - last 24 hr 10/21/24 10/21/24 10/21/24 11:15 16:10 19:33 MCV MCH MCHC RDW Plt Count MPV Absolute Nucleated RBC Nucleated RBC % (auto) Anion Gap Estim Creat Clear Calc Estimated GFR POC Glucose 162 H 145 H 117 H Random Glucose Calcium Total Bilirubin AST ALT Alkaline Phosphatase Total Protein Albumin 10/22/24 10/22/24 05:16 07:08 MCV 97.5 MCH 33.4 H MCHC 34.3 RDW 13.1 Plt Count 116 L MPV 10.7 Absolute Nucleated RBC 0.000 Nucleated RBC % (auto) 0.0 Anion Gap 10 L Estim Creat Clear Calc 119.8 Estimated GFR > 60 POC Glucose 155 H Random Glucose 205 H Calcium 8.5 Total Bilirubin 0.8 AST 67 H ALT 119 H Alkaline Phosphatase 68 Total Protein 5.9 L Albumin 3.4 L Procedures Date of Service Date of Service: 10/22/24 Progress Note: A&P Assessment and plan (1) Enteritis: Status: Acute Assessment and Plan: Overall the patient is improved with less abdominal pain although he continues to have ways of increased pain. Review of CT shows remarkable improvement in the enteritis. Agree with advancing diet as tolerated. Time Spent With Patient Time: Total time managing care of this patient today ____ minutes. Quality Stroke Does the patient have a stroke diagnosis?: No VTE Prior VTE?: No VTE Risk Level:: Medical - moderate - high VTE Device Contraindication: N/A - Device Ordered VTE Drug Contraindication: N/A - Med Ordered
[2024-10-22] MEDS: cefTRIAXone sodium 1 GM VIAL IVPUSH (09:33)
[2024-10-22 11:10] LABS: Glucose, Whole Blood 199 mg/dL (60-115)
--- NOTE | 2024-10-22 14:31 | P.DS_ITS ---
DS: Providers Provider Date of Service: 10/22/24 Date of admission: 10/18/24 15:35 Primary care physician: Rajan Baer MD Consults: 10/18/24 15:35 Consult to Gastroenterology Routine Consulting Provider: Mitali Ramires Reason for consultation: enteritis - distal ileum 10/18/24 16:37 Consult to General Surgery Routine Consulting Provider: [facility] [place] General Surgeons Reason for consultation: abdominal pain, enteritis 10/20/24 07:22 Addiction Medicine Routine Consulting Provider: Addiction Covering Reason for consultation: etoh use Has provider been notified: No DS: Diagnosis Discharge Diagnosis (1) Enteritis: Status: Acute DS: Summary Hospital Course Hospital Course: HP as per admitting provider. The patient is a 59-year-old male with a past medical history of hypertension, diabetes, hyperlipidemia, heavy alcohol use who presents to the emergency room with a 4 day history of severe abdominal pain and decreased oral intake. The patient reports that his symptoms began about 4 days ago, a day after he had consumed clam chowder. He reports that initially he had diarrhea, multiple times a day with some nausea. The diarrhea has since resolved but now he has severe abdominal pain in the lower quadrants as well as the right side. He reports vomiting with any oral intake. He denies any bleeding. He denies any fevers. No sick contacts. In the emergency room the patient was treated with IV antiemetics, multiple doses of IV analgesics and underwent workup which included a CT scan which shows inflammatory changes in the right side and a long segment of the distal ileum with mural thickening consistent with inflammatory or infectious etiology. Given his ongoing pain, the patient will be admitted for further workup and treatment. 59-year-old man treated for intractable abdominal pain secondary to enteritis, abdominal CT showing enteritis. Discussed with General surgery who stated no surgical intervention needed. He was seen evaluated by GI who recommended continuation of antibiotics for total of 7 days. He does have a history of alcohol use but no signs of withdrawal during hospitalization. Patient's diet was advanced from NPO to regular diet and doing well. Time Attestation Discharge Coordination Time (in mins): 40 Quality: Safe Use of Opioids Does Pt have an Active Cancer Diagnosis on the Problem List?: No Quality: Stroke Does the patient have a stroke diagnosis?: No Physical Exam Vital Signs: Vital Signs: Last Vital Signs Temp 97.0 F 10/22/24 07:10 Pulse 63 10/22/24 07:10 Resp 18 10/22/24 07:10 BP 106/59 L 10/22/24 07:10 Pulse Ox 96 10/22/24 07:10 O2 Del Method Room Air 10/22/24 07:10 BMI result Body Mass Index 38.7 Appearing in no acute distress head is normocephalic atraumatic eyes pupils are PERRLA sclera is anicteric mouth throat mucous membranes are intact and moist neck is supple no lymphadenopathy, no JVD noted lung sounds are clear to auscultation heart regular rate rhythm, clear S1, S2 positive bowel sounds, abdomen is soft, nontender neuro patient is alert x3, no focal deficits DS: Data Data Completed and Pending Completed studies during hospitalization [Text1]: Procedures Detoxification Services for Substance Abuse Treatment (10/27/21) Labs on day of discharge: Laboratory Results - last 24 hr 10/21/24 10/21/24 10/22/24 16:10 19:33 05:16 WBC 3.1 L RBC 3.65 L Hgb 12.2 L Hct 35.6 L MCV 97.5 MCH 33.4 H MCHC 34.3 RDW 13.1 Plt Count 116 L MPV 10.7 Absolute Nucleated RBC 0.000 Nucleated RBC % (auto) 0.0 Sodium 139 Potassium 4.2 Chloride 104 Carbon Dioxide 29 Anion Gap 10 L BUN 5 L Creatinine 0.86 Estim Creat Clear Calc 119.8 Estimated GFR > 60 POC Glucose 145 H 117 H Random Glucose 205 H Calcium 8.5 Total Bilirubin 0.8 AST 67 H ALT 119 H Alkaline Phosphatase 68 Total Protein 5.9 L Albumin 3.4 L 10/22/24 10/22/24 07:08 11:01 WBC RBC Hgb Hct MCV MCH MCHC RDW Plt Count MPV Absolute Nucleated RBC Nucleated RBC % (auto) Sodium Potassium Chloride Carbon Dioxide Anion Gap BUN Creatinine Estim Creat Clear Calc Estimated GFR POC Glucose 155 H 199 H Random Glucose Calcium Total Bilirubin AST ALT Alkaline Phosphatase Total Protein Albumin Discharge Plan Discharge Anticipated Discharge Date/Time: 10/22/24 14:02 Patient Disposition: Home, Self-Care Discharge Diagnosis: Enteritis Abdominal pain Alcohol consumption Referrals: Rajan Baer MD [Primary Care Provider] - 1 Week Discharge Medications: New oxycodone 5 mg tablet 5 mg PO BID PRN (Reason: pain) Qty: 10 0RF Rx Instructions: Partial Fill upon patient request. cefuroxime axetil 500 mg tablet 500 mg PO BID Qty: 8 0RF Continued prazosin 1 mg Capsule 1 mg PO BEDTIME 30 Days Qty: 30 0RF Protocol: Hold for SBP< HOLD for SBP < : 90 gabapentin 300 mg capsule 600 mg PO TID atorvastatin 40 mg tablet 40 mg PO DAILY metoprolol succinate 50 mg tablet extended release 24 hr 50 mg PO DAILY Tradjenta 5 mg tablet 5 mg PO DAILY glipizide 5 mg tablet 10 mg PO BID venlafaxine 150 mg tablet extended release 24hr 300 mg PO DAILY Rx Instructions: take 150mg daily for 1 week and then take 225mg daily lisinopril 10 mg tablet 10 mg PO DAILY tizanidine 4 mg capsule 4 mg PO Q8H PRN (Reason: Muscle Spasm) cyclobenzaprine 10 mg tablet 10 mg PO TID naproxen 500 mg tablet 500 mg PO BID Discharge Orders: Discharge Order (Routine); Ordered 10/22/24 Ordered By: Cindi Corrales Diet: Advance to usual diet Activity on Discharge: As tolerated Stand Alone Forms: Patient Portal Discharge page Print Language: Maori Care Plan Goals: Avoid alcohol consumption Eat bland low-fat foods for few more days, drink plenty of fluids Health Concerns: Enteritis Abdominal pain Alcohol consumption Plan of Treatment: Follow-up with primary care provider as needed Take all medications as prescribed Assessment: See discharge summary Patient Instructions: Enteritis (DC) Discharge Date/Time: 10/22/24 14:33
--- NOTE | 2024-10-22 14:37 | MHC.CM.PN ---
Patient dc'd home self care via private transport. [facility] delivered.
== END 2024-10-22 14:33 | disposition home or self-care (01) | DRG 392 ==
LOC: HO.ED 15:17 → HO.EDOVER 15:51 → HO.S3 19:17
PROVIDERS: Physician Assistant Medical; Registered Nurse Emergency; Admitting Provider Family Medicine; Emergency Provider Emergency Medicine; PCP Internal Medicine; Visit Provider Nurse Practitioner Acute Care
DX: K52.9 Noninfective gastroenteritis and colitis, unspecified (principal); E11.9 Type 2 diabetes mellitus without complications; I10 Essential (primary) hypertension; E78.5 Hyperlipidemia, unspecified; K70.9 Alcoholic liver disease, unspecified; F10.10 Alcohol abuse, uncomplicated; F39 Unspecified mood [affective] disorder; Z79.84 Long term (current) use of oral hypoglycemic drugs; Z79.899 Other long term (current) drug therapy
CPT/HCPCS: 36415; 74177; 80053; 80307; 81003; 82010; 82803; 82947; 83690; 83735; 84484; 85025; 85027; 85610; 86140; 93005; 99285; J0696; J1171; J1650; J1885; J2405; J2470; J3360; J7120; Q9967; S9485

== ENCOUNTER → 2024-10-18 11:52 | Outpatient (BNV) | payer MEDICARE, MEDICAID, SELFPAY | PROVIDERS: Emergency Provider Emergency Medicine; PCP Internal Medicine; Visit Provider Internal Medicine Cardiovascular Disease | DX: R00.0 Tachycardia, unspecified (principal); R94.31 Abnormal electrocardiogram [ECG] [EKG] | CPT/HCPCS: 93010 ==

== ENCOUNTER → 2024-10-18 15:35 | Outpatient (BNV) | payer MEDICARE, MEDICAID, SELFPAY | PROVIDERS: Admitting Provider Family Medicine; Emergency Provider Emergency Medicine; PCP Internal Medicine; Visit Provider Internal Medicine Gastroenterology | DX: K52.9 Noninfective gastroenteritis and colitis, unspecified (principal); R10.9 Unspecified abdominal pain | CPT/HCPCS: 99222 ==

== ENCOUNTER → 2024-10-18 15:35 | Outpatient (BNV) | payer MEDICARE, MEDICAID, SELFPAY | PROVIDERS: Admitting Provider Family Medicine; Emergency Provider Emergency Medicine; PCP Internal Medicine; Visit Provider Surgery | DX: K52.9 Noninfective gastroenteritis and colitis, unspecified (principal) | CPT/HCPCS: 99222; 99232 ==

== ENCOUNTER → 2024-10-18 15:35 | Outpatient (BNV) | payer MEDICARE, MEDICAID, SELFPAY | PROVIDERS: Admitting Provider Family Medicine; Emergency Provider Emergency Medicine; PCP Internal Medicine; Visit Provider Family Medicine | DX: F10.20 Alcohol dependence, uncomplicated (principal); K52.9 Noninfective gastroenteritis and colitis, unspecified | CPT/HCPCS: 99223; 99232 ==